=== PATIENT | male | born 1970 | race Caucasian/White ===

== ENCOUNTER 2021-08-06 16:34 | Inpatient (IN) | payer OTHER ==
[2021-08-06 17:31] LABS: BASOPHILS % (AUTO) 0.3 %; EOSINOPHILS # (AUTO) 0.1 10^3/uL (0.0-0.7); EOSINOPHILS % (AUTO) 0.6 %; HCT - HEMATOCRIT 47.1 % (42.0-52.0); LYMPHOCYTES # (AUTO) 0.8 10^3/uL (1.5-3.5); LYMPHOCYTES % (AUTO) 5.9 %; MEAN CORPUSCULAR VOLUME 85.5 fL (80.0-94.0); MONOCYTES # (AUTO) 0.3 10^3/uL (0.0-1.0); MONOCYTES % (AUTO) 2.4 %; NEUTROPHILS # (AUTO) 11.9 10^3/uL (1.5-6.6); NEUTROPHILS % (AUTO) 90.4 %; PLT - PLATELET COUNT 346 10^3/uL (130-450); RED BLOOD COUNT 5.51 10^6/uL (4.70-6.10); RED CELL DISTRIBUTION WIDTH 11.9 % (12.0-15.0); WHITE BLOOD COUNT 13.2 x10^3/uL (4.8-10.8)
--- NOTE | 2021-08-06 17:33 | ED Physician Documentation ---
History of Present Illness - Stated complaint Stated Complaint: INFLAMMED RECTUM - Chief complaint Chief Complaint: Abd Pain - Additonal information Additional information: 51-year-old male presents to the emergency department with acute rectal pain as well as urinary obstruction. He reports that he has a difficult time achieving orgasm and he will masturbate 1-2 times daily using dildo or a vibrator inserted rectally. He did not have lubrication yesterday and used only lotion. Since then he has been unable to defecate and has had persistent rectal pain and an inability to void. No history of similar in the past. No previous rectal surgeries. no fevers, n/v. Review of Systems Constitutional: denies: Fever, Chills Eyes: reports: Loss of vision Ears: reports: Reviewed and negative Nose: reports: Reviewed and negative Cardiac: reports: Reviewed and negative Respiratory: reports: Reviewed and negative GI: reports: Abdominal Pain. denies: Nausea, Vomiting : reports: Unable to Void, Other (rectal pain) Skin: reports: Reviewed and negative Musculoskeletal: reports: Reviewed and negative Neurologic: reports: Reviewed and negative PD PAST MEDICAL HISTORY - Past Medical History Psych: Depression - Past Surgical History Past Surgical History: Yes - Present Medications Home Medications: Ambulatory Orders Medication Instructions Recorded Confirmed No Known Home Medications 08/06/21 08/06/21 - Allergies Allergies/Adverse Reactions: Allergies Allergy/AdvReac Type Severity Reaction Status Date / Time No Known Drug Allergies Allergy Verified 08/06/21 16:46 - Social History Does the pt smoke?: No Smoking Status: Never smoker Does the pt drink ETOH?: No Does the pt have substance abuse?: No - Immunizations Immunizations are current?: No Immunizations: TDAP >10years/unknown PD ED PE NORMAL - General General: Alert and oriented X 3, Other (And significant pain) - HEENT HEENT: Atraumatic, Moist mucous membranes - Neck Neck: Supple, no meningeal sign - Cardiac Cardiac: RRR, No murmur, Strong equal pulses - Respiratory Respiratory: No respiratory distress, Clear bilaterally - Abdomen Abdomen: Normal bowel sounds, Soft. No: Non tender (Palpably distended bladder with tenderness. No flank or CVA pain. Positive guarding and rebound. c/w peritonitis) - Rectal Rectal: Other (External exam of the rectum appears intact without bleeding or discharge.). 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, No motor deficit Eye Opening: Spontaneous Motor: Obeys Commands Verbal: Oriented GCS Score: 15 Results - Vitals Vitals: Vital Signs - 24 hr 08/06/21 08/06/21 08/06/21 16:46 18:24 18:25 Temperature 37.3 C 37.3 C Heart Rate 90 85 85 Respiratory 16 18 20 Rate Blood Pressure 180/90 H 150/80 H 150/86 H O2 Saturation 96 97 100 08/06/21 20:00 Temperature 37.2 C Heart Rate 95 Respiratory 19 Rate Blood Pressure 155/86 H O2 Saturation 98 Oxygen O2 Source Room air - Labs Labs: Laboratory Tests 08/06/21 08/06/21 08/06/21 17:25 17:25 18:05 WBC 13.2 H RBC 5.51 Hgb 16.0 Hct 47.1 MCV 85.5 MCH 29.0 MCHC 34.0 RDW 11.9 L Plt Count 346 MPV 9.0 Neut # (Auto) 11.9 H Lymph # (Auto) 0.8 L [place] # (Auto) 0.3 Eos # (Auto) 0.1 Baso # (Auto) 0.0 Absolute Nucleated RBC 0.00 Nucleated RBC % 0.0 Sodium 136 Potassium 3.8 Chloride 102 Carbon Dioxide 24 Anion Gap 10.0 BUN 12 Creatinine 0.9 Estimated GFR (MDRD) 88 L Glucose 114 H Lactic Acid Calcium 8.8 Total Bilirubin 2.0 H AST 16 ALT 19 Alkaline Phosphatase 65 Total Protein 7.8 Albumin 4.4 Globulin 3.4 Albumin/Globulin Ratio 1.3 Lipase 22 Urine Color YELLOW Urine Clarity CLEAR Urine pH 6.5 Ur Specific [place] 1.020 Urine Protein NEGATIVE Urine Glucose (UA) NEGATIVE Urine Ketones TRACE Urine Occult Blood NEGATIVE Urine Nitrite NEGATIVE Urine Bilirubin NEGATIVE Urine Urobilinogen 0.2 (NORMAL) Ur Leukocyte Esterase NEGATIVE Ur Microscopic Review NOT INDICATED Urine Culture Comments NOT INDICATED Nasal Adenovirus (PCR) Nasal B. parapertussis DNA (PCR) Nasal Coronavir 229E PCR Nasal Coronavir HKU1 PCR Nasal Coronavir NL63 PCR Nasal Coronavir OC43 PCR Nasal Enterovir/Rhinovir PCR Nasal Influenza B PCR Nasal Influenza A PCR Nasal Parainfluen 1 PCR Nasal Parainfluen 2 PCR Nasal Parainfluen 3 PCR Nasal Parainfluen 4 PCR Nasal RSV (PCR) Nasal B.pertussis DNA PCR Nasal C.pneumoniae (PCR) Jed Human Metapneumo PCR Nasal M.pneumoniae (PCR) Nasal SARS-CoV-2 (PCR) 08/06/21 08/06/21 19:30 19:37 WBC RBC Hgb Hct MCV MCH MCHC RDW Plt Count MPV Neut # (Auto) Lymph # (Auto) [place] # (Auto) Eos # (Auto) Baso # (Auto) Absolute Nucleated RBC Nucleated RBC % Sodium Potassium Chloride Carbon Dioxide Anion Gap BUN Creatinine Estimated GFR (MDRD) Glucose Lactic Acid 1.3 Calcium Total Bilirubin AST ALT Alkaline Phosphatase Total Protein Albumin Globulin Albumin/Globulin Ratio Lipase Urine Color Urine Clarity Urine pH Ur Specific [place] Urine Protein Urine Glucose (UA) Urine Ketones Urine Occult Blood Urine Nitrite Urine Bilirubin Urine Urobilinogen Ur Leukocyte Esterase Ur Microscopic Review Urine Culture Comments Nasal Adenovirus (PCR) NOT DETECTED Nasal B. parapertussis DNA (PCR) NOT DETECTED Nasal Coronavir 229E PCR NOT DETECTED Nasal Coronavir HKU1 PCR NOT DETECTED Nasal Coronavir NL63 PCR NOT DETECTED Nasal Coronavir OC43 PCR NOT DETECTED Nasal Enterovir/Rhinovir PCR NOT DETECTED Nasal Influenza B PCR NOT DETECTED Nasal Influenza A PCR NOT DETECTED Nasal Parainfluen 1 PCR NOT DETECTED Nasal Parainfluen 2 PCR NOT DETECTED Nasal Parainfluen 3 PCR NOT DETECTED Nasal Parainfluen 4 PCR NOT DETECTED Nasal RSV (PCR) NOT DETECTED Nasal B.pertussis DNA PCR NOT DETECTED Nasal C.pneumoniae (PCR) NOT DETECTED Jed Human Metapneumo PCR NOT DETECTED Nasal M.pneumoniae (PCR) NOT DETECTED Nasal SARS-CoV-2 (PCR) NOT DETECTED - Rads (name of study) CT abd Radiology: Final report received (Sigmoid diverticulitis with stranding. Focal extraluminal air contiguous with a portion of the thickened sigmoid colon. Scattered areas of nonluminal free air identified within the abdomen and pelvis most consistent with a perforation.) PD MEDICAL DECISION MAKING - ED course Complexity details: reviewed results, re-evaluated patient, d/w event management consultant (Zoran) ED course: 51-year-old male presents emergency department for acute abdominal and rectal pain as well as inability to urinate. He does report a history of daily masturbation that includes rectal penetration. On initial presentation he had quite a tender abdomen with guarding and rebound but also visibly distended bladder. A Ruiz catheter was placed. On reexam he remains exquisitely tender, but mostly focal on the LLQ. Screening labs do not show any acute worrisome abnormality but a CT of the abdomen suggests sigmoid diverticulitis with perforation. 192 I have discussed the CT finding with Dr. Meehan on-call for surgery. Respiratory PCR is pending. Patient will be empirically prescribed Zosyn. Admission to the hospital and and surgical ammelioration at the direction of surgical services. Hospitalist service will consult. Plan and findings have been communicated with the patient. Departure - Departure Disposition: 66 [facility] DC/Xfer Clinical Impression: Perforation of sigmoid colon Condition: Stable Record reviewed to determine appropriate education?: Yes
[2021-08-06 17:41] LABS: ALBUMIN 4.4 g/dL (3.2-5.5); ALBUMIN/GLOBULIN RATIO 1.3 (1.0-2.2); CALCIUM 8.8 mg/dL (8.5-10.3); CREATININE 0.9 mg/dL (0.6-1.2); POTASSIUM 3.8 mmol/L (3.5-5.0); TOTAL PROTEIN 7.8 g/dL (6.7-8.2)
[2021-08-06] MEDS ORDERED: iohexoL-300 100 ML VIAL ONE (18:06)
[2021-08-06] MEDS ORDERED: SODIUM CHLORIDE 0.9% 1,000 ML IV STA (18:11)
[2021-08-06] MEDS ORDERED: HYDROmorphone 1 MG/ML CARPUJECT IVP STA ×2 (18:11→20:02)
[2021-08-06 18:47] LABS: BILIRUBIN,URINE NEGATIVE (NEGATIVE); GLUCOSE, URINE (UA) NEGATIVE (NEGATIVE); KETONES,URINE (UA) TRACE mg/dL (NEGATIVE); LEUKOCYTE ESTERASE, URINE NEGATIVE (NEGATIVE); NITRITE,URINE NEGATIVE (NEGATIVE); OCCULT BLOOD,URINE NEGATIVE (NEGATIVE); PH,URINE 6.5 PH (5.0-7.5); PROTEIN,URINE NEGATIVE (NEGATIVE); UROBILINOGEN,URINE 0.2 (NORMAL) E.U./dL (NORMAL)
[2021-08-06 18:50] LABS: CLARITY,URINE CLEAR (CLEAR)
[2021-08-06] MEDS ORDERED: PIPERACILLIN/TAZOBACTAM 3.375 GM in SODIUM CHLORIDE 0.9% MINIBAG 100 ML IV STA (19:17)
--- NOTE | 2021-08-06 19:18 | CT Report ---
PROCEDURE: Abdomen/Pelvis W INDICATIONS: rectal pain/urinary obstruciton after rectal stim CONTRAST: IV CONTRAST: Isovue 300 ml: 100 PO CONTRAST: *NO PO CONTRAST TECHNIQUE: After the administration of intravenous contrast, 5 mm thick sections acquired from the diaphragms to the symphysis. 5 mm thick coronal and sagittal reformats were acquired. For radiation dose reducti on, the following was used: automated exposure control, adjustment of mA and/or kV according to binta ent size. COMPARISON: CT chest 08/02/2012 report only. FINDINGS: Image quality: Excellent. ABDOMEN: Lung bases: 3 mm fissural right nodule series 4 image 541. This was not noted in prior report of 2012 . Images are not available for direct comparison. Scarring versus atelectasis is noted within the lilia gula. Heart size is normal. Solid organs: Liver and spleen are normal in size and enhancement. Gallbladder is unremarkable Doug iary system is non dilated. Pancreas enhances normally. No adrenal nodules. Kidneys demonstrate no rmal size and enhancement, without hydronephrosis. Peritoneum and bowel: Bowel loops are nonobstructed. There is a mild thickened appearance of the sig moid colon with pericolonic stranding. Adjacent areas of air appearing extraluminal are noted. Divert icula are present. In addition, nondependent air is also present within the abdomen. Scattered areas of mild fluid are present. Nodes and vessels: No retroperitoneal or mesenteric adenopathy by size criteria. Aorta and inferior vena cava are normal in size. Miscellaneous: No ventral hernias. PELVIS: Genitourinary: Bladder is collapsed with a Ruiz catheter. Miscellaneous: Bilateral fat-containing inguinal hernias are present. Bones: No suspicious bony lesions. No vertebral body compression fractures. IMPRESSION: 1. Thickened appearance of the sigmoid colon with diverticula and areas of stranding most suggestive of slight colitis secondary to diverticulitis. There is focal area of extraluminal air contiguous wit h the portion of thickened sigmoid colon. In addition, scattered areas of nonluminal free air are nida ntified within the abdomen and pelvis most consistent with perforation. 2. 3 mm fissural nodule as above, nonspecific and appearing new. Recommend interval follow-up as below. The above findings were discussed with Joanna Barrera on 08/06/2021 at 7:14 PM. Fleischner Society criteria for SOLID lung nodule followup. Nodule size (mm) *<6 *Low-risk patient: No follow-up needed *High-risk patient: Optional CT at 12 months; if no change, no further follow-up *6-8 *Low-risk patient: Initial follow-up CT at 6-12 months, then optional CT at 18-24 months. *High-risk patient: Initial follow-up CT at CT at 6-[address] 18-24 months. *>8 single nodule *Low-risk patient: CT, PET or biopsy at 3 months. *High-risk patient: Same as for low-risk pts. *>8 multiple nodules *Low-risk patient: CT at 3-6 months, then optional CT at 18-24 months *High-risk patient: CT at 3-6 months, then CT at 18-24 months Reviewed by: Kate Ansari MD on 08/06/2021 7:17 PM PST Approved by: Kate Ansari MD on 08/06/2021 7:17 PM PST Station ID: [id number]
--- NOTE | 2021-08-06 20:22 | HISTORY & PHYSICAL EXAMINATION ---
Chief Complaint - Chief Complaint Chief Complaint: abdominal pain History of Present Illness - History of Present Illness HPI Comment/Other: Pt is a 51 yo M with no known PMH, no prior abdominal surgery who presents for abdominal pain. Pain started yesterday evening subsequent to masturbating with anal stimulation via a sex toy of ~8-9 in. length. Pain has gotten slightly more diffuse but mostly in LLQ. No BM or flatus since pain started. No emesis. Denies any anal bleeding. Has never had similar episodes. No fevers at home. Was retaining urine, akers catheter placed with relief. In ED pt still with abdominal pain. HR 80-90s, BP 150s systolic, afebrile. Labs notable for WBC 13; CT scan showing sigmoid thickening with pericolonic free air, as well as some ventral free air and some mild free fluid. History - Past Medical History Cardiovascular: reports: None Respiratory: reports: None Neuro: reports: None Endocrine/Autoimmune: reports: None GI: reports: None : reports: None HEENT: reports: None Psych: reports: Depression Musculoskeletal: reports: None Derm: reports: None MRSA Hx?: No Other Past Medical History: Denies any known PMH; doesnt take any meds at home. 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) HEENT: reports: Tonsil/Adenoidectomy - Substance History Use: Uses substance without health or social issues: NONE (Denies EtOH, drug, or tobacco use; never any IVDU) Meds/Allgy - Home Medications Home Medications: Ambulatory Orders Medication Instructions Recorded Confirmed No Known Home Medications 08/06/21 08/06/21 - Allergies Allergies/Adverse Reactions: Allergies Allergy/AdvReac Type Severity Reaction Status Date / Time No Known Drug Allergies Allergy Verified 08/06/21 16:46 Review of Systems - Constitutional Constitutional: denies: Fever - Cardiovascular Cariovascular: denies: Chest pain - Respiratory Respiratory: denies: Cough, SOB at rest - Gastrointestinal Gastrointestinal: reports: Abdominal pain, Constipation, Nausea - Genitourinary Genitourinary: reports: Dysuria Exam - Vital Signs Reviewed Vital Signs: Yes Vital Signs: Vital Signs x48h Temp Pulse Resp BP Pulse Ox 08/06/21 20:00 37.2 C 95 19 155/86 H 98 08/06/21 18:25 85 20 150/86 H 100 01/11/22 18:24 37.3 C 85 18 150/80 H 97 08/06/21 16:46 37.3 C 90 16 180/90 H 96 - Physical Exam General Appearance: positive: No acute distress, Alert Eyes Bilateral: positive: EOMI Respiratory: positive: No respiratory distress Cardiovascular: positive: Regular rate & rhythm Abdomen: positive: Other (soft, obese, mildly distended, moderate TTP in LLQ with focal peritonitis; rest of abdomen non-tender with only referred pain to LLQ; no rebound or guarding in rest of abdomen) Rectal: positive: Non-tender, Other (normal external exam; no blood on glove; no masses or other abnormalities detected) Skin: positive: No rash, Warm, Dry. negative: Diaphoresis Neurologic/Psychiatric: positive: Oriented x3, Mood/affect nml Comments/Other: Akesr catheter in place draining clear yellow urine Sepsis Event Note (H) - Sepsis Criteria Sepsis Criteria: WBC count greater than 12,000 or less than 4000 Conclusion/Plan - Lab Results Fish Bones: 08/06/21 17:25 08/06/21 17:25 - Other Other Results/Comments: Pt is a 51 yo M with no significant known PMH or PSH who presents with perf orated sigmoid diverticulitis (given location does not seem to be self-inflicted perforation). Clinically stable vitals, exam with focal TTP in LLQ but not diffuse peritonitis. WBC 13, with sigmoid thickening as well as mild free fluid and some free air both locally and anteriorly. Given non-toxic vitals, reassuring labs and only focal TTP on exam, will attempt trial of non-op mgmt. Discussed with pt that failure of non-op mgmt (including worsening pain, septic picture developing, or failure to progress) would likely result in Freddie's procedure and that abscess development could also necessitate further procedures. - Admit to gen surg with Medicine Consult - IV pain meds - strict NPO/IVF - prn zofran - Zosyn (received first dose in ED) - serial exams; Q4 hr vitals - continue akers catheter for now - if there is ANY clinical decompensation of the patient, please do not hesitate to call Given the complexity of this patient, they were discussed with senior attending Dr. Good who will assume care of the patient tomorrow. Lio Meehan MD General Surgery
[2021-08-06] MEDS ORDERED: MORPHINE 2 MG/ML CARPUJECT IVP PRN (20:37)
[2021-08-06 20:46] LABS: B. PARAPERTUSSIS- RESP PCR PAN NOT DETECTED; B. PERTUSSIS- RESP PCR PANEL NOT DETECTED; C. PNEUMONIAE- RESP PCR PANEL NOT DETECTED; CORONAVIRUS 229E-RESP PCR NOT DETECTED; CORONAVIRUS HKU1-RESP PCR NOT DETECTED; CORONAVIRUS NL63-RESP PCR NOT DETECTED; CORONAVIRUS OC43-RESP PCR NOT DETECTED; HUMAN METAPNEUMOVIRUS NOT DETECTED; INFLUENZA A- RESP PCR PANEL NOT DETECTED; INFLUENZA B - RESP PCR PANEL NOT DETECTED; M. PNEUMONIAE- RESP PCR PANEL NOT DETECTED; PARAINFLUENZA VIRUS 1 NOT DETECTED; PARAINFLUENZA VIRUS 2 NOT DETECTED; PARAINFLUENZA VIRUS 3 NOT DETECTED; PARAINFLUENZA VIRUS 4 NOT DETECTED; RHINOVIRUS/ENTEROVIRUS NOT DETECTED; RSV- RESP PCR PANEL NOT DETECTED; SARS-CoV-2 -RESP PCR PANEL NOT DETECTED
[2021-08-06] MEDS ORDERED: iohexoL-300 100 ML VIAL IVP ONE (21:29)
[2021-08-06] MEDS: ACETAMINOPHEN 1,000 MG/100 ML 100 ML IV SCH (21:43)
[2021-08-06] MEDS: SODIUM CHLORIDE FLUSH 0.9% 10 ML SYRINGE IVP PRN (21:51)
[2021-08-06] MEDS: HEPARIN 5,000 UNIT/ML VIAL SUBQ SCH (21:53)
[2021-08-06] MEDS: LACTATED RINGERS 1,000 ML IV SCH (22:01)
[2021-08-06] MEDS: HYDROcod/ACETAM 5/325 MG TABLET PO PRN (22:52)
--- NOTE | 2021-08-06 22:55 | CONSULTATION NOTE ---
Referring Provider Name of Referring Provider:: Dr Meehan (Gen Surg) Consult Date: 08/06/21 Chief Complaint - Chief Complaint Chief Complaint: Abd pain History of Present Illness - Admitted From Admitted From:: ED - History Obtained From History obtained from: ED provider and the patient - History of Present Illness HPI Comment/Other: This is a 51-year-old white male with a prior history of morbid obesity and then he had hypertension and sleep apnea requiring CPAP. He then lost 50 pounds with increased activity and a diet and is on no medicines for hypertension and no longer needs his CPAP. This patient suffers from erectile dysfunction and masturbates frequently (reported daily, to the ED provider), using a sexual device inserted into his rectum. After 1 of these episodes today, he started to having anterior, lower abdominal pain that was so severe he was "panting like a dog" and inability to urinate. There was no rectal pain or bleeding. Because of these ongoing symptoms he presented to the ED. Work-up in the ED showed a distended urinary bladder and he received a Ruiz. He continued to have abdominal pain with guarding and rebound and further work-up showed an elevated white count of 13, normal Lactic Acid level, and CT of the abdomen/pelvis showed diverticuli with stranding consistent with diverticulitis, and also free air consistent with a sigmoid perforation. He was seen by the General Surgeon and admitted and the Hospitalist Team is asked to be on consult. The patient denies any current medical history, and does not take any daily medications. He did not know he has diverticulosis, has never had a colonoscopy and he has never had these types of symptoms before. We discussed his CODE BLUE wishes and he would like to be a Full Code. History - Past Medical History Cardiovascular: reports: None Respiratory: reports: None, Sleep apnea (requiring CPAP, but not since losing 50 lbs 3 yeras ago.) Neuro: reports: None Endocrine/Autoimmune: reports: None GI: reports: None : reports: None, Other (? erectile dysfunction) HEENT: reports: None Psych: reports: Depression (improved and on no meds since re- 7 years ago.) Musculoskeletal: reports: None Derm: reports: None MRSA Hx?: No Other Past Medical History: Denies any known PMH; doesnt take any meds at home. 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 (His has been in [place] helping her father for the last 1 year. The patient currently lives alone, has a dog.) Social History Notes: The patient never smoked cigarettes, drinks no alcohol, has no history of drug use. He is estranged from his 2 adult children, ever since the divorce from his first . He has a full-time job at [employer], walks a lot with this. His second is currently away, over the past 1 year, helping her father in [place], thus he is alone in the house with his dog. - Substance History Use: Uses substance without health or social issues: NONE (Denies EtOH, drug, or tobacco use; never any IVDU) - POLST Patient has POLST: No Meds/Allgy - Home Medications Home Medications: Ambulatory Orders Medication Instructions Recorded Confirmed No Known Home Medications 08/06/21 08/06/21 - Allergies Allergies/Adverse Reactions: Allergies Allergy/AdvReac Type Severity Reaction Status Date / Time No Known Drug Allergies Allergy Verified 08/06/21 16:46 Review of Systems - Gastrointestinal Gastrointestinal: reports: Abdominal pain - Genitourinary Genitourinary: reports: Sexual dysfunction (?ED, masturbates daily and uses/ inserts dildos for rectal stimulation.), Other (Urinary bladder obstruction for the past 1 day, relieved when Ruiz inserted in ED.) - All Other Systems All Other Systems: reports: Reviewed and negative Exam - Vital Signs Vital Signs: Vital Signs x48h Temp Pulse Pulse Resp BP BP Pulse Ox 08/06/21 22:41 37.7 C 08/06/21 21:38 38.7 C H 98 20 152/83 H 98 08/06/21 20:00 37.2 C 95 19 155/86 H 98 08/06/21 18:25 85 20 150/86 H 100 08/06/21 18:24 37.3 C 85 18 150/80 H 97 08/06/21 16:46 37.3 C 90 16 180/90 H 96 - Physical Exam General Appearance: positive: No acute distress, Alert Eyes Bilateral: positive: Normal inspection, EOMI ENT: positive: ENT inspection nml, Dry mucous membranes Neck: positive: Nml inspection, No JVD Respiratory: positive: No respiratory distress, Breath sounds nml Cardiovascular: positive: Regular rate & rhythm, No murmur Abdomen: positive: Tenderness, Guarding, Rebound, Other (Mildly distended, absent bowel sounds) Skin: positive: Warm, Dry Extremities: positive: Non-tender, No pedal edema Neurologic/Psychiatric: positive: Oriented x3, CN's nml (2-12), Motor nml Conclusion/Plan - Problem List (1) Perforation of sigmoid colon Conclusion/Plan: Continue with IV narcotics for pain control, n.p.o. and assess his WBC and lacti c acid level tomorrow Further management with npo diet and/or surgical intervention will be as per g eneral surgery. (2) Pre-op evaluation Conclusion/Plan: The patient has no history of cardiac disease, diabetes, chest pain or CHF. His revised cardiac risk index for pre-operative risk is 1, (Class II risk), giving him a 6% 30-day risk of , [place] or cardiac arrest. We will follow along with you. Thank you for allowing us to participate in the care of this patient (3) Diverticulitis Conclusion/Plan: Continue with empiric IV antibiotics. Further management with npo diet and/or surgical intervention will be as per general surgery. (4) Acute urinary retention Conclusion/Plan: A Ruiz catheter was required to relieve his urinary retention which is was caused by bladder obstruction. Continue with Ruiz care, follow I's and O's (5) Bladder obstruction Conclusion/Plan: This is probably related to swelling and inflammation from his diverticulitis. - Lab Results Fish Bones: 08/06/21 17:25 08/06/21 17:25 - Diagnostic Imaging Results Diagnostic Imaging Results: positive: Final report reviewed - Other Other Results/Comments: Attestation: The patient is expected to be discharged or transferred to another facility within 96 hours: Yes.
[2021-08-06] MEDS: PIPERACILLIN/TAZOBACTAM 3.375 GM in SODIUM CHLORIDE 0.9% MINIBAG 100 ML IV SCH (23:54)
[2021-08-06] MEDS: diphenhydrAMINE INJ 50 MG/ML VIAL IVP PRN (23:55)
[2021-08-07] MEDS: SODIUM CHLORIDE FLUSH 0.9% 10 ML SYRINGE IVP SCH ×4 (00:02→23:46)
[2021-08-07] MEDS: HYDROmorphone 2 MG/ML VIAL IVP PRN ×4 (02:24→22:58)
[2021-08-07] MEDS: PIPERACILLIN/TAZOBACTAM 3.375 GM in SODIUM CHLORIDE 0.9% MINIBAG 100 ML IV SCH ×4 (05:46→23:45)
[2021-08-07] MEDS: HEPARIN 5,000 UNIT/ML VIAL SUBQ SCH ×3 (05:53→21:35)
[2021-08-07 06:31] LABS: BASOPHILS # (AUTO) 0.1 10^3/uL (0.0-0.1); BASOPHILS % (AUTO) 0.4 %; EOSINOPHILS # (AUTO) 0.1 10^3/uL (0.0-0.7); EOSINOPHILS % (AUTO) 0.4 %; HCT - HEMATOCRIT 43.5 % (42.0-52.0); HGB - HEMOGLOBIN 14.4 g/dL (14.0-18.0); LYMPHOCYTES # (AUTO) 0.6 10^3/uL (1.5-3.5); LYMPHOCYTES % (AUTO) 3.5 %; MEAN CORPUSCULAR HEMOGLOBIN 29.1 pg (27.0-31.0); MEAN CORPUSCULAR HGB CONC 33.1 g/dL (32.0-36.0); MEAN CORPUSCULAR VOLUME 87.9 fL (80.0-94.0); MONOCYTES # (AUTO) 0.8 10^3/uL (0.0-1.0); MONOCYTES % (AUTO) 4.7 %; NEUTROPHILS # (AUTO) 14.9 10^3/uL (1.5-6.6); NEUTROPHILS % (AUTO) 90.5 %; PLT - PLATELET COUNT 278 10^3/uL (130-450); RED BLOOD COUNT 4.95 10^6/uL (4.70-6.10); RED CELL DISTRIBUTION WIDTH 12.3 % (12.0-15.0); WHITE BLOOD COUNT 16.5 x10^3/uL (4.8-10.8)
[2021-08-07 06:40] LABS: CALCIUM 7.9 mg/dL (8.5-10.3); CREATININE 0.9 mg/dL (0.6-1.2); MAGNESIUM 1.8 mg/dL (1.7-2.8); POTASSIUM 4.2 mmol/L (3.5-5.0)
--- NOTE | 2021-08-07 07:22 | PROVIDER PROGRESS NOTE ---
Subjective - General Admit Date: 08/06/21 - Review of Systems All Other Systems: positive: Reviewed and negative - Other Other Information/Narrative: NAEO. Fever yesterday late evening, since defervesced on abx. Pain significantly improved; "slept like a baby last night." Now mostly thirsty. Objective - Patient Data Reviewed Vital Signs: Yes Vital Signs: Vital Signs x48h Temp Pulse Resp BP Pulse Ox 08/07/21 05:30 37.1 C 86 16 110/63 96 08/06/21 23:59 37.6 C 91 16 121/71 95 Weight: Weight 08/05/21 08/06/21 08/07/21 23:59 23:59 23:59 Weight (kg) 99.79 kg Intake & Output: Intake and Output Totals x24h 08/05/21 08/06/21 08/07/21 23:59 23:59 23:59 Intake Total 1200 1114.583 Output Total 975 300 Balance 225 814.583 - Lab Results Lab Results: 08/07/21 06:18 08/07/21 06:18 Other Lab Results: Lab Results x24hrs 08/07/21 08/07/21 08/07/21 Range/Units 06:18 06:18 06:18 WBC 16.5 H (4.8-10.8) x10^3/uL RBC 4.95 (4.70-6.10) 10^6/uL Hgb 14.4 (14.0-18.0) g/dL Hct 43.5 (42.0-52.0) % MCV 87.9 (80.0-94.0) fL MCH 29.1 (27.0-31.0) pg MCHC 33.1 (32.0-36.0) g/dL RDW 12.3 (12.0-15.0) % Plt Count 278 (130-450) 10^3/uL MPV 9.0 (7.4-11.4) fL Neut # (Auto) 14.9 H (1.5-6.6) 10^3/uL Lymph # (Auto) 0.6 L (1.5-3.5) 10^3/uL [place] # (Auto) 0.8 (0.0-1.0) 10^3/uL Eos # (Auto) 0.1 (0.0-0.7) 10^3/uL Baso # (Auto) 0.1 (0.0-0.1) 10^3/uL Absolute Nucleated RBC 0.00 x10^3/uL Nucleated RBC % 0.0 /100WBC Sodium 137 (135-145) mmol/L Potassium 4.2 (3.5-5.0) mmol/L Chloride 103 (101-111) mmol/L Carbon Dioxide 25 (21-32) mmol/L Anion Gap 9.0 (6-13) BUN 13 (6-20) mg/dL Creatinine 0.9 (0.6-1.2) mg/dL Estimated GFR (MDRD) 88 L (>89) Glucose 124 H (70-100) mg/dL Lactic Acid 1.4 (0.5-2.2) mmol/L Calcium 7.9 L (8.5-10.3) mg/dL Magnesium 1.8 (1.7-2.8) mg/dL Total Bilirubin (0.2-1.0) mg/dL AST (10-42) IU/L ALT (10-60) IU/L Alkaline Phosphatase (42-121) IU/L Total Protein (6.7-8.2) g/dL Albumin (3.2-5.5) g/dL Globulin (2.1-4.2) g/dL Albumin/Globulin Ratio (1.0-2.2) Lipase (22-51) U/L Urine Color Urine Clarity (CLEAR) Urine pH (5.0-7.5) PH Ur Specific [place] (1.002-1.030) Urine Protein (NEGATIVE) mg/dL Urine Glucose (UA) (NEGATIVE) mg/dL Urine Ketones (NEGATIVE) mg/dL Urine Occult Blood (NEGATIVE) Urine Nitrite (NEGATIVE) Urine Bilirubin (NEGATIVE) Urine Urobilinogen (NORMAL) E.U./dL Ur Leukocyte Esterase (NEGATIVE) Ur Microscopic Review Urine Culture Comments Nasal Adenovirus (PCR) Nasal B. parapertussis DNA (PCR) Nasal Coronavir 229E PCR Nasal Coronavir HKU1 PCR Nasal Coronavir NL63 PCR Nasal Coronavir OC43 PCR Nasal Enterovir/Rhinovir PCR Nasal Influenza B PCR Nasal Influenza A PCR Nasal Parainfluen 1 PCR Nasal Parainfluen 2 PCR Nasal Parainfluen 3 PCR Nasal Parainfluen 4 PCR Nasal RSV (PCR) Nasal B.pertussis DNA PCR Nasal C.pneumoniae (PCR) Jed Human Metapneumo PCR Nasal M.pneumoniae (PCR) Nasal SARS-CoV-2 (PCR) 08/06/21 08/06/21 08/06/21 Range/Units 19:37 19:30 18:05 WBC (4.8-10.8) x10^3/uL RBC (4.70-6.10) 10^6/uL Hgb (14.0-18.0) g/dL Hct (42.0-52.0) % MCV (80.0-94.0) fL MCH (27.0-31.0) pg MCHC (32.0-36.0) g/dL RDW (12.0-15.0) % Plt Count (130-450) 10^3/uL MPV (7.4-11.4) fL Neut # (Auto) (1.5-6.6) 10^3/uL Lymph # (Auto) (1.5-3.5) 10^3/uL [place] # (Auto) (0.0-1.0) 10^3/uL Eos # (Auto) (0.0-0.7) 10^3/uL Baso # (Auto) (0.0-0.1) 10^3/uL Absolute Nucleated RBC x10^3/uL Nucleated RBC % /100WBC Sodium (135-145) mmol/L Potassium (3.5-5.0) mmol/L Chloride (101-111) mmol/L Carbon Dioxide (21-32) mmol/L Anion Gap (6-13) BUN (6-20) mg/dL Creatinine (0.6-1.2) mg/dL Estimated GFR (MDRD) (>89) Glucose (70-100) mg/dL Lactic Acid 1.3 (0.5-2.2) mmol/L Calcium (8.5-10.3) mg/dL Magnesium (1.7-2.8) mg/dL Total Bilirubin (0.2-1.0) mg/dL AST (10-42) IU/L ALT (10-60) IU/L Alkaline Phosphatase (42-121) IU/L Total Protein (6.7-8.2) g/dL Albumin (3.2-5.5) g/dL Globulin (2.1-4.2) g/dL Albumin/Globulin Ratio (1.0-2.2) Lipase (22-51) U/L Urine Color YELLOW Urine Clarity CLEAR (CLEAR) Urine pH 6.5 (5.0-7.5) PH Ur Specific [place] 1.020 (1.002-1.030) Urine Protein NEGATIVE (NEGATIVE) mg/dL Urine Glucose (UA) NEGATIVE (NEGATIVE) mg/dL Urine Ketones TRACE (NEGATIVE) mg/dL Urine Occult Blood NEGATIVE (NEGATIVE) Urine Nitrite NEGATIVE (NEGATIVE) Urine Bilirubin NEGATIVE (NEGATIVE) Urine Urobilinogen 0.2 (NORMAL) (NORMAL) E.U./dL Ur Leukocyte Esterase NEGATIVE (NEGATIVE) Ur Microscopic Review NOT INDICATED Urine Culture Comments NOT INDICATED Nasal Adenovirus (PCR) NOT DETECTED Nasal B. parapertussis DNA (PCR) NOT DETECTED Nasal Coronavir 229E PCR NOT DETECTED Nasal Coronavir HKU1 PCR NOT DETECTED Nasal Coronavir NL63 PCR NOT DETECTED Nasal Coronavir OC43 PCR NOT DETECTED Nasal Enterovir/Rhinovir PCR NOT DETECTED Nasal Influenza B PCR NOT DETECTED Nasal Influenza A PCR NOT DETECTED Nasal Parainfluen 1 PCR NOT DETECTED Nasal Parainfluen 2 PCR NOT DETECTED Nasal Parainfluen 3 PCR NOT DETECTED Nasal Parainfluen 4 PCR NOT DETECTED Nasal RSV (PCR) NOT DETECTED Nasal B.pertussis DNA PCR NOT DETECTED Nasal C.pneumoniae (PCR) NOT DETECTED [place] Human Metapneumo PCR NOT DETECTED Nasal M.pneumoniae (PCR) NOT DETECTED Nasal SARS-CoV-2 (PCR) NOT DETECTED 08/06/21 08/06/21 Range/Units 17:25 17:25 WBC 13.2 H (4.8-10.8) x10^3/uL RBC 5.51 (4.70-6.10) 10^6/uL Hgb 16.0 (14.0-18.0) g/dL Hct 47.1 (42.0-52.0) % MCV 85.5 (80.0-94.0) fL MCH 29.0 (27.0-31.0) pg MCHC 34.0 (32.0-36.0) g/dL RDW 11.9 L (12.0-15.0) % Plt Count 346 (130-450) 10^3/uL MPV 9.0 (7.4-11.4) fL Neut # (Auto) 11.9 H (1.5-6.6) 10^3/uL Lymph # (Auto) 0.8 L (1.5-3.5) 10^3/uL [place] # (Auto) 0.3 (0.0-1.0) 10^3/uL Eos # (Auto) 0.1 (0.0-0.7) 10^3/uL Baso # (Auto) 0.0 (0.0-0.1) 10^3/uL Absolute Nucleated RBC 0.00 x10^3/uL Nucleated RBC % 0.0 /100WBC Sodium 136 (135-145) mmol/L Potassium 3.8 (3.5-5.0) mmol/L Chloride 102 (101-111) mmol/L Carbon Dioxide 24 (21-32) mmol/L Anion Gap 10.0 (6-13) BUN 12 (6-20) mg/dL Creatinine 0.9 (0.6-1.2) mg/dL Estimated GFR (MDRD) 88 L (>89) Glucose 114 H (70-100) mg/dL Lactic Acid (0.5-2.2) mmol/L Calcium 8.8 (8.5-10.3) mg/dL Magnesium (1.7-2.8) mg/dL Total Bilirubin 2.0 H (0.2-1.0) mg/dL AST 16 (10-42) IU/L ALT 19 (10-60) IU/L Alkaline Phosphatase 65 (42-121) IU/L Total Protein 7.8 (6.7-8.2) g/dL Albumin 4.4 (3.2-5.5) g/dL Globulin 3.4 (2.1-4.2) g/dL Albumin/Globulin Ratio 1.3 (1.0-2.2) Lipase 22 (22-51) U/L Urine Color Urine Clarity (CLEAR) Urine pH (5.0-7.5) PH Ur Specific [place] (1.002-1.030) Urine Protein (NEGATIVE) mg/dL Urine Glucose (UA) (NEGATIVE) mg/dL Urine Ketones (NEGATIVE) mg/dL Urine Occult Blood (NEGATIVE) Urine Nitrite (NEGATIVE) Urine Bilirubin (NEGATIVE) Urine Urobilinogen (NORMAL) E.U./dL Ur Leukocyte Esterase (NEGATIVE) Ur Microscopic Review Urine Culture Comments Nasal Adenovirus (PCR) Nasal B. parapertussis DNA (PCR) Nasal Coronavir 229E PCR Nasal Coronavir HKU1 PCR Nasal Coronavir NL63 PCR Nasal Coronavir OC43 PCR Nasal Enterovir/Rhinovir PCR Nasal Influenza B PCR Nasal Influenza A PCR Nasal Parainfluen 1 PCR Nasal Parainfluen 2 PCR Nasal Parainfluen 3 PCR Nasal Parainfluen 4 PCR Nasal RSV (PCR) Nasal B.pertussis DNA PCR Nasal C.pneumoniae (PCR) Jed Human Metapneumo PCR Nasal M.pneumoniae (PCR) Nasal SARS-CoV-2 (PCR) - Current Medications Current Medications: Current Medications Generic Name Dose Route Start Last Admin Trade Name Freq PRN Reason Stop Dose Admin Hydrocodone Bitart/Acetaminophen 1 tab 08/06/21 20:37 08/06/21 22:52 Hydrocod/Acetam 5/325 Mg Tablet PO 1 tab Q4HR PRN Administration Pain 5 to 7 Diphenhydramine HCl 25 mg 08/06/21 22:44 08/06/21 23:55 Diphenhydramine Inj 50 Mg/Ml Vial IVP 25 mg QPM PRN Administration Insomnia Heparin Sodium (Porcine) 5,000 unit 08/06/21 22:00 08/07/21 05:53 Heparin 5,000 Unit/Ml Vial SUBQ 5,000 unit TID BLAS Administration Hydromorphone HCl 2 mg 08/06/21 22:46 08/07/21 06:46 Hydromorphone 2 Mg/Ml Vial IVP 2 mg Q2H PRN Administration PAIN Lactated Ringer's 1,000 mls @ 125 mls/hr 08/06/21 21:00 08/07/21 06:45 Lr IV 125 mls/hr .Q8H BLAS Infusion Piperacillin Sod/Tazobactam 100 mls @ 200 mls/hr 08/07/21 00:00 08/07/21 06:46 Sod 3.375 gm/ Sodium Chloride IV Infused Q6HR BLAS Infusion Acetaminophen 100 mls @ 400 mls/hr 08/06/21 21:00 08/06/21 22:04 Ofirmev IV Infused BID BLAS Infusion Sodium Chloride 10 ml 08/06/21 20:37 08/06/21 21:51 Sodium Chloride Flush 0.9% 10 Ml Syringe IVP 10 ml PRN PRN Administration NEEDED PER PROVIDER ORDERS Sodium Chloride 10 ml 08/07/21 01:00 08/07/21 00:02 Sodium Chloride Flush 0.9% 10 Ml Syringe IVP 10 ml 0100,0900,1700 BLAS Administration - Physical Exam General Appearance: positive: No acute distress, Alert Eyes Bilateral: positive: EOMI Respiratory: positive: No respiratory distress Cardiovascular: positive: Regular rate & rhythm Abdomen: positive: Other (obese, soft, mildly distended, moderate TTP in LLQ, rest of abdomen soft and non-tender) Skin: positive: Warm, Dry Extremities: positive: No pedal edema ABX Reporting Has patient been on IV antibiotics over the past 48 hours?: Yes Impression/Plan - Problem List Problem List: 51 yo M who presents with perforated diverticulitis. Trialing non-op mgmt with bowel rest and IV abx. Clinically improved, less pain than prior; currently afebrile, HR 80s, BP wnl now that pain controlled. WBC did bump to 16 from 13; otherwise labs ok. - continue NPO/IVF - continue zosyn - continue IV pain meds - leave akers in for now; making good urine - HSQ/SCDs - serial exams - appreciate Medicine consultation Lio Meehan MD General Surgery
[2021-08-07] MEDS: LACTATED RINGERS 1,000 ML IV SCH ×3 (07:30→22:57)
--- NOTE | 2021-08-07 08:04 | PROVIDER PROGRESS NOTE ---
Assessment/Plan - Problem List (1) Perforation of sigmoid colon Assessment/Plan: WBC increased from 13.2 to 16.5. Patient currently n.p.o. On Zosyn. Pain management with [place] and oral Dilaudid as needed. General surgery primary. Will await their input regarding plan of treatment. (2) Diverticulitis Assessment/Plan: WBC increased from 13.2 to 16.5. Patient currently n.p.o. On Zosyn. Pain management with [place] and oral Dilaudid as needed. General surgery primary. Will await their input regarding plan of treatment. (3) Acute urinary retention Assessment/Plan: Likely secondary to inflammation from diverticulitis. Ruiz catheter in place (4) Bladder obstruction Assessment/Plan: Likely secondary to inflammation from diverticulitis. Ruiz catheter in place - Current Meds Current Meds: Current Medications Generic Name Dose Route Start Last Admin Trade Name Freq PRN Reason Stop Dose Admin Hydrocodone Bitart/Acetaminophen 1 tab 08/06/21 20:37 08/06/21 22:52 Hydrocod/Acetam 5/325 Mg Tablet PO 1 tab Q4HR PRN Administration Pain 5 to 7 Diphenhydramine HCl 25 mg 08/06/21 22:44 08/06/21 23:55 Diphenhydramine Inj 50 Mg/Ml Vial IVP 25 mg QPM PRN Administration Insomnia Heparin Sodium (Porcine) 5,000 unit 08/06/21 22:00 08/07/21 05:53 Heparin 5,000 Unit/Ml Vial SUBQ 5,000 unit TID BLAS Administration Hydromorphone HCl 2 mg 08/06/21 22:46 08/07/21 06:46 Hydromorphone 2 Mg/Ml Vial IVP 2 mg Q2H PRN Administration PAIN Lactated [place] 1,000 mls @ 125 mls/hr 08/06/21 21:00 08/07/21 06:45 Lr IV 125 mls/hr .Q8H BLAS Infusion Piperacillin Sod/Tazobactam 100 mls @ 200 mls/hr 08/07/21 00:00 08/07/21 06:46 Sod 3.375 gm/ Sodium Chloride IV Infused Q6HR BLAS Infusion Acetaminophen 100 mls @ 400 mls/hr 08/06/21 21:00 08/06/21 22:04 Ofirmev IV Infused BID BLAS Infusion Sodium Chloride 10 ml 08/06/21 20:37 08/06/21 21:51 Sodium Chloride Flush 0.9% 10 Ml Syringe IVP 10 ml PRN PRN Administration NEEDED PER PROVIDER ORDERS Sodium Chloride 10 ml 08/07/21 01:00 08/07/21 00:02 Sodium Chloride Flush 0.9% 10 Ml Syringe IVP 10 ml 0100,0900,1700 BLAS Administration - Lab Result Fish Bone Diagrams: 08/07/21 06:18 08/07/21 06:18 Subjective - Subjective Patient Reports: Other (Resting in bed. Reports 6 out of 10 pain. Abdominal pain worse with palpation. Also reports feeling thirsty.) Objective Vital Signs: Vital Signs - 24 hr 08/06/21 08/06/21 08/06/21 16:46 18:24 18:25 Temperature 37.3 C 37.3 C Heart Rate 90 85 85 Heart Rate [ Brachial] Respiratory 16 18 20 Rate Blood Pressure 180/90 H 150/80 H 150/86 H Blood Pressure [Left Brachial artery] O2 Saturation 96 97 100 08/06/21 08/06/21 08/06/21 20:00 21:38 22:41 Temperature 37.2 C 38.7 C H 37.7 C Heart Rate 95 Heart Rate [ 98 Brachial] Respiratory 19 20 Rate Blood Pressure 155/86 H Blood Pressure 152/83 H [Left Brachial artery] O2 Saturation 98 98 08/06/21 08/07/21 23:59 05:30 Temperature 37.6 C 37.1 C Heart Rate Heart Rate [ 91 86 Brachial] Respiratory 16 16 Rate Blood Pressure Blood Pressure 121/71 110/63 [Left Brachial artery] O2 Saturation 95 96 Oxygen O2 Source Room air I&O (Last 24 Hrs): Intake and Output Totals x24h 08/05/21 08/06/21 08/07/21 23:59 23:59 23:59 Intake Total 1200 1114.583 Output Total 975 300 Balance 225 814.583 General: Alert, Oriented x3, Mild distress, Moderate distress HEENT: PERRLA, EOMI Neck: Supple, No JVD Neuro: Alert, Oriented Times 3 Cardiovascular: Regular rate Respiratory: Chest non-tender, No respiratory distress, Breath sounds nml Abdomen: Soft, Other (tender to palpation on all quadrants) Extremities: No clubbing, No cyanosis, No edema, No tenderness/swelling Skin: No rashes, No breakdown - Results Results: Laboratory Results WBC 16.5 x10^3/uL (4.8-10.8) H 08/07/21 06:18 RBC 4.95 10^6/uL (4.70-6.10) 08/07/21 06:18 Hgb 14.4 g/dL (14.0-18.0) 08/07/21 06:18 Hct 43.5 % (42.0-52.0) 08/07/21 06:18 MCV 87.9 fL (80.0-94.0) 08/07/21 06:18 MCH 29.1 pg (27.0-31.0) 08/07/21 06:18 MCHC 33.1 g/dL (32.0-36.0) 08/07/21 06:18 RDW 12.3 % (12.0-15.0) 08/07/21 06:18 Plt Count 278 10^3/uL (130-450) 08/07/21 06:18 MPV 9.0 fL (7.4-11.4) 08/07/21 06:18 Neut # (Auto) 14.9 10^3/uL (1.5-6.6) H 08/07/21 06:18 Lymph # (Auto) 0.6 10^3/uL (1.5-3.5) L 08/07/21 06:18 [place] # (Auto) 0.8 10^3/uL (0.0-1.0) 08/07/21 06:18 Eos # (Auto) 0.1 10^3/uL (0.0-0.7) 08/07/21 06:18 Baso # (Auto) 0.1 10^3/uL (0.0-0.1) 08/07/21 06:18 Absolute Nucleated RBC 0.00 x10^3/uL 08/07/21 06:18 Nucleated RBC % 0.0 /100WBC 08/07/21 06:18 Sodium 137 mmol/L (135-145) 08/07/21 06:18 Potassium 4.2 mmol/L (3.5-5.0) 08/07/21 06:18 Chloride 103 mmol/L (101-111) 08/07/21 06:18 Carbon Dioxide 25 mmol/L (21-32) 08/07/21 06:18 Anion Gap 9.0 (6-13) 08/07/21 06:18 BUN 13 mg/dL (6-20) 08/07/21 06:18 Creatinine 0.9 mg/dL (0.6-1.2) 08/07/21 06:18 Estimated GFR (MDRD) 88 (>89) L 08/07/21 06:18 Glucose 124 mg/dL (70-100) H 08/07/21 06:18 Lactic Acid 1.4 mmol/L (0.5-2.2) 08/07/21 06:18 Calcium 7.9 mg/dL (8.5-10.3) L 08/07/21 06:18 Magnesium 1.8 mg/dL (1.7-2.8) 08/07/21 06:18 Total Bilirubin 2.0 mg/dL (0.2-1.0) H 08/06/21 17:25 AST 16 IU/L (10-42) 08/06/21 17:25 ALT 19 IU/L (10-60) 08/06/21 17:25 Alkaline Phosphatase 65 IU/L (42-121) 08/06/21 17:25 Total Protein 7.8 g/dL (6.7-8.2) 08/06/21 17:25 Albumin 4.4 g/dL (3.2-5.5) 08/06/21 17:25 Globulin 3.4 g/dL (2.1-4.2) 08/06/21 17:25 Albumin/Globulin Ratio 1.3 (1.0-2.2) 08/06/21 17:25 Lipase 22 U/L (22-51) 08/06/21 17:25 Urine Color YELLOW 08/06/21 18:05 Urine Clarity CLEAR (CLEAR) 08/06/21 18:05 Urine pH 6.5 PH (5.0-7.5) 08/06/21 18:05 Ur Specific [place] 1.020 (1.002-1.030) 08/06/21 18:05 Urine Protein NEGATIVE mg/dL (NEGATIVE) 08/06/21 18:05 Urine Glucose (UA) NEGATIVE mg/dL (NEGATIVE) 08/06/21 18:05 Urine Ketones TRACE mg/dL (NEGATIVE) 08/06/21 18:05 Urine Occult Blood NEGATIVE (NEGATIVE) 08/06/21 18:05 Urine Nitrite NEGATIVE (NEGATIVE) 08/06/21 18:05 Urine Bilirubin NEGATIVE (NEGATIVE) 08/06/21 18:05 Urine Urobilinogen 0.2 (NORMAL) E.U./dL (NORMAL) 08/06/21 18:05 Ur Leukocyte Esterase NEGATIVE (NEGATIVE) 08/06/21 18:05 Ur Microscopic Review NOT INDICATED 08/06/21 18:05 Urine Culture Comments NOT INDICATED 08/06/21 18:05 Nasal Adenovirus (PCR) NOT DETECTED 08/06/21 19:30 Nasal B. parapertussis DNA (PCR) NOT DETECTED 08/06/21 19:30 Nasal Coronavir 229E PCR NOT DETECTED 08/06/21 19:30 Nasal Coronavir HKU1 PCR NOT DETECTED 08/06/21 19:30 Nasal Coronavir NL63 PCR NOT DETECTED 08/06/21 19:30 Nasal Coronavir OC43 PCR NOT DETECTED 08/06/21 19:30 Nasal Enterovir/Rhinovir PCR NOT DETECTED 08/06/21 19:30 Nasal Influenza B PCR NOT DETECTED 08/06/21 19:30 Nasal Influenza A PCR NOT DETECTED 08/06/21 19:30 Nasal Parainfluen 1 PCR NOT DETECTED 08/06/21 19:30 Nasal Parainfluen 2 PCR NOT DETECTED 08/06/21 19:30 Nasal Parainfluen 3 PCR NOT DETECTED 08/06/21 19:30 Nasal Parainfluen 4 PCR NOT DETECTED 08/06/21 19:30 Nasal RSV (PCR) NOT DETECTED 08/06/21 19:30 Nasal B.pertussis DNA PCR NOT DETECTED 08/06/21 19:30 Nasal C.pneumoniae (PCR) NOT DETECTED 08/06/21 19:30 Jed Human Metapneumo PCR NOT DETECTED 08/06/21 19:30 Nasal M.pneumoniae (PCR) NOT DETECTED 08/06/21 19:30 Nasal SARS-CoV-2 (PCR) NOT DETECTED 08/06/21 19:30 Sepsis Event Note (H) - Sepsis Criteria Sepsis Criteria: WBC count greater than 12,000 or less than 4000 ABX Reporting Has patient been on IV antibiotics over the past 48 hours?: Yes
[2021-08-07] MEDS: ACETAMINOPHEN 1,000 MG/100 ML 100 ML IV SCH ×2 (08:25→21:31)
[2021-08-07] MEDS: HYDROcod/ACETAM 5/325 MG TABLET PO PRN (14:39)
[2021-08-08] MEDS: HYDROmorphone 2 MG/ML VIAL IVP PRN (04:43)
[2021-08-08] MEDS: HEPARIN 5,000 UNIT/ML VIAL SUBQ SCH ×3 (05:44→21:28)
[2021-08-08] MEDS: PIPERACILLIN/TAZOBACTAM 3.375 GM in SODIUM CHLORIDE 0.9% MINIBAG 100 ML IV SCH ×3 (05:47→18:19)
--- NOTE | 2021-08-08 07:12 | PROVIDER PROGRESS NOTE ---
Assessment/Plan - Problem List (1) Perforation of sigmoid colon Assessment/Plan: WBC is 13.7. Patient currently n.p.o. On Zosyn. Pain management with [place] and oral Dilaudid as needed. General surgery primary. Will await further input regarding plan of treatment. (2) Diverticulitis Assessment/Plan: WBC is 13.7. Patient currently n.p.o. On Zosyn. Pain management with [place] and oral Dilaudid as needed. General surgery primary. Will await further input regarding plan of treatment. (3) Acute urinary retention Assessment/Plan: Likely secondary to inflammation from diverticulitis. Ruiz catheter in place (4) Bladder obstruction Assessment/Plan: Likely secondary to inflammation from diverticulitis. Ruiz catheter in place - Current Meds Current Meds: Current Medications Generic Name Dose Route Start Last Admin Trade Name Freq PRN Reason Stop Dose Admin Diphenhydramine HCl 25 mg 08/06/21 22:44 08/06/21 23:55 Diphenhydramine Inj 50 Mg/Ml Vial IVP 25 mg QPM PRN Administration Insomnia Heparin Sodium (Porcine) 5,000 unit 08/06/21 22:00 08/08/21 05:44 Heparin 5,000 Unit/Ml Vial SUBQ 5,000 unit TID BLAS Administration Hydromorphone HCl 1 mg 08/07/21 20:19 08/08/21 04:43 Hydromorphone 2 Mg/Ml Vial IVP 1 mg Q2H PRN Administration PAIN Lactated Ringer's 1,000 mls @ 125 mls/hr 08/06/21 21:00 08/08/21 01:01 Lr IV 125 mls/hr .Q8H BLAS Infusion Piperacillin Sod/Tazobactam 100 mls @ 200 mls/hr 08/07/21 00:00 08/08/21 06:45 Sod 3.375 gm/ Sodium Chloride IV Infused Q6HR BLAS Infusion Acetaminophen 100 mls @ 400 mls/hr 08/06/21 21:00 08/07/21 21:46 Ofirmev IV Infused BID BLAS Infusion Sodium Chloride 10 ml 08/06/21 20:37 08/06/21 21:51 Sodium Chloride Flush 0.9% 10 Ml Syringe IVP 10 ml PRN PRN Administration NEEDED PER PROVIDER ORDERS Sodium Chloride 10 ml 08/07/21 01:00 08/07/21 23:46 Sodium Chloride Flush 0.9% 10 Ml Syringe IVP 10 ml 0100,0900,1700 [facility] Administration - Lab Result Fish Bone Diagrams: 08/08/21 06:51 08/08/21 07:28 Subjective - Subjective Patient Reports: Other (Resting in bed. No significant change in pain. Afebrile) Objective Vital Signs: Vital Signs - 24 hr 08/07/21 08/07/21 08/07/21 08:18 11:32 15:59 Temperature 37.6 C 36.5 C 37.4 C Heart Rate [ 89 78 95 Brachial] Respiratory 17 18 19 Rate Blood Pressure 111/65 115/73 129/80 [Left Brachial artery] O2 Saturation 94 95 96 08/07/21 08/07/21 08/08/21 20:20 23:15 04:34 Temperature 37.3 C 36.9 C 37.2 C Heart Rate [ 91 84 91 Brachial] Respiratory 16 18 16 Rate Blood Pressure 118/71 112/64 125/73 [Left Brachial artery] O2 Saturation 93 93 94 Oxygen O2 Source Room air I&O (Last 24 Hrs): Intake and Output Totals x24h 08/06/21 08/07/21 08/08/21 23:59 23:59 23:59 Intake Total 1200 3579.167 200 Output Total 975 1050 275 Balance 225 2529.167 -75 Comments/Notes: General: Alert, Oriented x3, Mild distress, Moderate distress HEENT: PERRLA, EOMI Neck: Supple, No JVD Neuro: Alert, Oriented Times 3 Cardiovascular: Regular rate Respiratory: Chest non-tender, No respiratory distress, Breath sounds nml Abdomen: Soft, Other (tender to palpation on all quadrants) Extremities: No clubbing, No cyanosis, No edema, No tenderness/swelling Skin: No rashes, No breakdown - Results Results: Laboratory Results WBC 16.5 x10^3/uL (4.8-10.8) H 08/07/21 06:18 RBC 4.95 10^6/uL (4.70-6.10) 08/07/21 06:18 Hgb 14.4 g/dL (14.0-18.0) 08/07/21 06:18 Hct 43.5 % (42.0-52.0) 08/07/21 06:18 MCV 87.9 fL (80.0-94.0) 08/07/21 06:18 MCH 29.1 pg (27.0-31.0) 08/07/21 06:18 MCHC 33.1 g/dL (32.0-36.0) 08/07/21 06:18 RDW 12.3 % (12.0-15.0) 08/07/21 06:18 Plt Count 278 10^3/uL (130-450) 08/07/21 06:18 MPV 9.0 fL (7.4-11.4) 08/07/21 06:18 Neut # (Auto) 14.9 10^3/uL (1.5-6.6) H 08/07/21 06:18 Lymph # (Auto) 0.6 10^3/uL (1.5-3.5) L 08/07/21 06:18 [place] # (Auto) 0.8 10^3/uL (0.0-1.0) 08/07/21 06:18 Eos # (Auto) 0.1 10^3/uL (0.0-0.7) 08/07/21 06:18 Baso # (Auto) 0.1 10^3/uL (0.0-0.1) 08/07/21 06:18 Absolute Nucleated RBC 0.00 x10^3/uL 08/07/21 06:18 Nucleated RBC % 0.0 /100WBC 08/07/21 06:18 Sodium 137 mmol/L (135-145) 08/07/21 06:18 Potassium 4.2 mmol/L (3.5-5.0) 08/07/21 06:18 Chloride 103 mmol/L (101-111) 08/07/21 06:18 Carbon Dioxide 25 mmol/L (21-32) 08/07/21 06:18 Anion Gap 9.0 (6-13) 08/07/21 06:18 BUN 13 mg/dL (6-20) 08/07/21 06:18 Creatinine 0.9 mg/dL (0.6-1.2) 08/07/21 06:18 Estimated GFR (MDRD) 88 (>89) L 08/07/21 06:18 Glucose 124 mg/dL (70-100) H 08/07/21 06:18 Lactic Acid 1.4 mmol/L (0.5-2.2) 08/07/21 06:18 Calcium 7.9 mg/dL (8.5-10.3) L 08/07/21 06:18 Magnesium 1.8 mg/dL (1.7-2.8) 08/07/21 06:18 Total Bilirubin 2.0 mg/dL (0.2-1.0) H 08/06/21 17:25 AST 16 IU/L (10-42) 08/06/21 17:25 ALT 19 IU/L (10-60) 08/06/21 17:25 Alkaline Phosphatase 65 IU/L (42-121) 08/06/21 17:25 Total Protein 7.8 g/dL (6.7-8.2) 08/06/21 17:25 Albumin 4.4 g/dL (3.2-5.5) 08/06/21 17:25 Globulin 3.4 g/dL (2.1-4.2) 08/06/21 17:25 Albumin/Globulin Ratio 1.3 (1.0-2.2) 08/06/21 17:25 Lipase 22 U/L (22-51) 08/06/21 17:25 Urine Color YELLOW 08/06/21 18:05 Urine Clarity CLEAR (CLEAR) 08/06/21 18:05 Urine pH 6.5 PH (5.0-7.5) 08/06/21 18:05 Ur Specific [place] 1.020 (1.002-1.030) 08/06/21 18:05 Urine Protein NEGATIVE mg/dL (NEGATIVE) 08/06/21 18:05 Urine Glucose (UA) NEGATIVE mg/dL (NEGATIVE) 08/06/21 18:05 Urine Ketones TRACE mg/dL (NEGATIVE) 08/06/21 18:05 Urine Occult Blood NEGATIVE (NEGATIVE) 08/06/21 18:05 Urine Nitrite NEGATIVE (NEGATIVE) 08/06/21 18:05 Urine Bilirubin NEGATIVE (NEGATIVE) 08/06/21 18:05 Urine Urobilinogen 0.2 (NORMAL) E.U./dL (NORMAL) 08/06/21 18:05 Ur Leukocyte Esterase NEGATIVE (NEGATIVE) 08/06/21 18:05 Ur Microscopic Review NOT INDICATED 08/06/21 18:05 Urine Culture Comments NOT INDICATED 08/06/21 18:05 Nasal Adenovirus (PCR) NOT DETECTED 08/06/21 19:30 Nasal B. parapertussis DNA (PCR) NOT DETECTED 08/06/21 19:30 Nasal Coronavir 229E PCR NOT DETECTED 08/06/21 19:30 Nasal Coronavir HKU1 PCR NOT DETECTED 08/06/21 19:30 Nasal Coronavir NL63 PCR NOT DETECTED 08/06/21 19:30 Nasal Coronavir OC43 PCR NOT DETECTED 08/06/21 19:30 Nasal Enterovir/Rhinovir PCR NOT DETECTED 08/06/21 19:30 Nasal Influenza B PCR NOT DETECTED 08/06/21 19:30 Nasal Influenza A PCR NOT DETECTED 08/06/21 19:30 Nasal Parainfluen 1 PCR NOT DETECTED 08/06/21 19:30 Nasal Parainfluen 2 PCR NOT DETECTED 08/06/21 19:30 Nasal Parainfluen 3 PCR NOT DETECTED 08/06/21 19:30 Nasal Parainfluen 4 PCR NOT DETECTED 08/06/21 19:30 Nasal RSV (PCR) NOT DETECTED 08/06/21 19:30 Nasal B.pertussis DNA PCR NOT DETECTED 08/06/21 19:30 Nasal C.pneumoniae (PCR) NOT DETECTED 08/06/21 19:30 [place] Human Metapneumo PCR NOT DETECTED 08/06/21 19:30 Nasal M.pneumoniae (PCR) NOT DETECTED 08/06/21 19:30 Nasal SARS-CoV-2 (PCR) NOT DETECTED 08/06/21 19:30 Sepsis Event Note (H) - Sepsis Criteria Sepsis Criteria: WBC count greater than 12,000 or less than 4000 ABX Reporting Has patient been on IV antibiotics over the past 48 hours?: Yes
[2021-08-08 07:25] LABS: BASOPHILS % (AUTO) 0.2 %; EOSINOPHILS % (AUTO) 0.3 %; HCT - HEMATOCRIT 41.3 % (42.0-52.0); HGB - HEMOGLOBIN 13.6 g/dL (14.0-18.0); LYMPHOCYTES # (AUTO) 0.5 10^3/uL (1.5-3.5); LYMPHOCYTES % (AUTO) 3.5 %; MEAN CORPUSCULAR HEMOGLOBIN 29.1 pg (27.0-31.0); MEAN CORPUSCULAR HGB CONC 32.9 g/dL (32.0-36.0); MEAN CORPUSCULAR VOLUME 88.2 fL (80.0-94.0); MEAN PLATELET VOLUME 9.2 fL (7.4-11.4); MONOCYTES # (AUTO) 0.4 10^3/uL (0.0-1.0); MONOCYTES % (AUTO) 3.1 %; NEUTROPHILS # (AUTO) 12.6 10^3/uL (1.5-6.6); NEUTROPHILS % (AUTO) 92.1 %; PLT - PLATELET COUNT 274 10^3/uL (130-450); RED BLOOD COUNT 4.68 10^6/uL (4.70-6.10); RED CELL DISTRIBUTION WIDTH 12.5 % (12.0-15.0); WHITE BLOOD COUNT 13.7 x10^3/uL (4.8-10.8)
[2021-08-08 07:49] LABS: ALBUMIN 2.8 g/dL (3.2-5.5); BILIRUBIN,TOTAL 2.9 mg/dL (0.2-1.0)
[2021-08-08 08:01] LABS: ALBUMIN/GLOBULIN RATIO 0.9 (1.0-2.2); CALCIUM 7.9 mg/dL (8.5-10.3); POTASSIUM 3.6 mmol/L (3.5-5.0)
--- NOTE | 2021-08-08 08:20 | PROVIDER PROGRESS NOTE ---
Subjective - General Admit Date: 08/06/21 - Review of Systems General: positive: Weakness, Fatigue HEENT: positive: No symptoms Pulmonary: positive: No symptoms Cardiovascular: positive: No symptoms Gastrointestinal: positive: Abdominal pain, Other All Other Systems: positive: Reviewed and negative - Other Other Information/Narrative: Mr. Greco reports that his abdominal pain is about the same. He thinks th at the hydromorphone has helped him some. He has not passed any flatus since coming into the hospital yesterday. He reports that he somewhat has the urge but he is afraid to.No fever overnight. Objective - Patient Data Reviewed Vital Signs: Yes Vital Signs: Vital Signs x48h Temp Pulse Resp BP Pulse Ox 08/08/21 07:54 36.7 C 88 16 127/73 95 08/08/21 04:34 37.2 C 91 16 125/73 94 Weight: Weight 08/06/21 08/07/21 08/08/21 23:59 23:59 23:59 Weight (kg) 99.79 kg Intake & Output: Intake and Output Totals x24h 08/06/21 08/07/21 08/08/21 23:59 23:59 23:59 Intake Total 1200 3579.167 200 Output Total 975 1050 275 Balance 225 2529.167 -75 - Lab Results Lab Results: 08/08/21 06:51 08/08/21 07:28 Other Lab Results: Lab Results x24hrs 08/08/21 08/08/21 Range/Units 07:28 06:51 WBC 13.7 H (4.8-10.8) x10^3/uL RBC 4.68 L (4.70-6.10) 10^6/uL Hgb 13.6 L (14.0-18.0) g/dL Hct 41.3 L (42.0-52.0) % MCV 88.2 (80.0-94.0) fL MCH 29.1 (27.0-31.0) pg MCHC 32.9 (32.0-36.0) g/dL RDW 12.5 (12.0-15.0) % Plt Count 274 (130-450) 10^3/uL MPV 9.2 (7.4-11.4) fL Neut # (Auto) 12.6 H (1.5-6.6) 10^3/uL Lymph # (Auto) 0.5 L (1.5-3.5) 10^3/uL [place] # (Auto) 0.4 (0.0-1.0) 10^3/uL Eos # (Auto) 0.0 (0.0-0.7) 10^3/uL Baso # (Auto) 0.0 (0.0-0.1) 10^3/uL Absolute Nucleated RBC 0.00 x10^3/uL Nucleated RBC % 0.0 /100WBC Sodium 135 (135-145) mmol/L Potassium 3.6 (3.5-5.0) mmol/L Chloride 100 L (101-111) mmol/L Carbon Dioxide 26 (21-32) mmol/L Anion Gap 9.0 (6-13) BUN 13 (6-20) mg/dL Creatinine 1.0 (0.6-1.2) mg/dL Estimated GFR (MDRD) 78 L (>89) Glucose 104 H (70-100) mg/dL Calcium 7.9 L (8.5-10.3) mg/dL Total Bilirubin 2.9 H (0.2-1.0) mg/dL AST 14 (10-42) IU/L ALT 16 (10-60) IU/L Alkaline Phosphatase 38 L (42-121) IU/L Total Protein 6.0 L (6.7-8.2) g/dL Albumin 2.8 L (3.2-5.5) g/dL Globulin 3.2 (2.1-4.2) g/dL Albumin/Globulin Ratio 0.9 L (1.0-2.2) - Imaging Results Imaging Results Comments: Free air and free fluid presumably secondary to perforated diverticulitis - Current Medications Current Medications: Current Medications Generic Name Dose Route Start Last Admin Trade Name Freq PRN Reason Stop Dose Admin Diphenhydramine HCl 25 mg 08/06/21 22:44 08/06/21 23:55 Diphenhydramine Inj 50 Mg/Ml Vial IVP 25 mg QPM PRN Administration Insomnia Heparin Sodium (Porcine) 5,000 unit 08/06/21 22:00 08/08/21 05:44 Heparin 5,000 Unit/Ml Vial SUBQ 5,000 unit TID BLAS Administration Hydromorphone HCl 1 mg 08/07/21 20:19 08/08/21 04:43 Hydromorphone 2 Mg/Ml Vial IVP 1 mg Q2H PRN Administration PAIN Lactated Ringer's 1,000 mls @ 125 mls/hr 08/06/21 21:00 08/08/21 01:01 Lr IV 125 mls/hr .Q8H BLAS Infusion Piperacillin Sod/Tazobactam 100 mls @ 200 mls/hr 08/07/21 00:00 08/08/21 06:45 Sod 3.375 gm/ Sodium Chloride IV Infused Q6HR BLAS Infusion Acetaminophen 100 mls @ 400 mls/hr 08/06/21 21:00 08/07/21 21:46 Ofirmev IV Infused BID BLAS Infusion Sodium Chloride 10 ml 08/06/21 20:37 08/06/21 21:51 Sodium Chloride Flush 0.9% 10 Ml Syringe IVP 10 ml PRN PRN Administration NEEDED PER PROVIDER ORDERS Sodium Chloride 10 ml 08/07/21 01:00 08/07/21 23:46 Sodium Chloride Flush 0.9% 10 Ml Syringe IVP 10 ml 0100,0900,1700 BLAS Administration - Physical Exam General Appearance: positive: No acute distress, Alert Eyes Bilateral: positive: Normal inspection, PERRL, EOMI ENT: positive: ENT inspection nml Neck: positive: Nml inspection Respiratory: positive: Chest non-tender, No respiratory distress, Breath sounds nml Cardiovascular: positive: Regular rate & rhythm Abdomen: positive: Tenderness, Guarding, Rebound, Other (Tender and distended with guarding and rebound. Very few bowel sounds.). negative: No distention Skin: positive: Color nml Neurologic/Psychiatric: positive: Oriented x3, CN's nml (2-12) ABX Reporting Has patient been on IV antibiotics over the past 48 hours?: Yes Impression/Plan - Problem List Problem List: Julissa diverticulitis in the setting of a 51-year-old gentleman who is otherwise quite healthy. I am very concerned that this gentleman is going to come to surgery. His white count is improved today down from 16 back to 13. It is notable that his bilirubin is elevated but that could be either blood reabsorption from the time of the perforation or just stasis.He appears uncomfortable. If he is able to pass flatus today, perhaps we can stay the course. If not, we may need to reconsider operation this afternoon.
[2021-08-08] MEDS: ACETAMINOPHEN 1,000 MG/100 ML 100 ML IV SCH ×2 (08:55→21:26)
[2021-08-08] MEDS: SODIUM CHLORIDE FLUSH 0.9% 10 ML SYRINGE IVP SCH ×2 (08:56→16:16)
[2021-08-08] MEDS: LACTATED RINGERS 1,000 ML IV SCH ×2 (08:56→17:21)
--- NOTE | 2021-08-08 09:15 | PHARMACY PROGRESS NOTE ---
- Best Possible Medication History Admit Date and Time: 08/06/212036 Processed by: Nursing Medication History completed: Yes Patient Interview: Completed As the person ultimately responsible for medication therapy, providers are able to order a medication from an existing home medication list in [facility] via the "Reconcile Routine" prior to Confirmation of that medication by intelligence support officer. Such practice is discouraged except when the physician, in their clinical judg ment, deems that a medical need exists for a medication without regard to previous use.
[2021-08-08] MEDS: HYDROmorphone 1 MG/ML CARPUJECT IVP PRN ×3 (12:26→19:42)
[2021-08-09] MEDS: SODIUM CHLORIDE FLUSH 0.9% 10 ML SYRINGE IVP SCH ×4 (00:40→05:49)
[2021-08-09] MEDS: PIPERACILLIN/TAZOBACTAM 3.375 GM in SODIUM CHLORIDE 0.9% MINIBAG 100 ML IV SCH ×4 (00:40→18:10)
[2021-08-09] MEDS: HYDROmorphone 1 MG/ML CARPUJECT IVP PRN ×4 (00:46→21:36)
[2021-08-09] MEDS: LACTATED RINGERS 1,000 ML IV SCH ×3 (02:41→12:09)
[2021-08-09] MEDS: SODIUM CHLORIDE FLUSH 0.9% 10 ML SYRINGE IVP PRN ×3 (02:46→18:58)
[2021-08-09] MEDS: ONDANSETRON 4 MG/2 ML VIAL IVP PRN ×2 (02:46→16:28)
[2021-08-09] MEDS ORDERED: PROCHLORPERAZINE 10 MG/2 ML VIAL IVP PRN (05:15)
[2021-08-09] MEDS: PANTOPRAZOLE 40 MG VIAL IV SCH ×2 (05:32→18:05)
--- NOTE | 2021-08-09 05:42 | PROVIDER PROGRESS NOTE ---
Hospitalist Cross-cover Note - Cross-Cover Note Cross-Cover Note: RN reported to me that at about 0400 pt complained of nausea and he got iv Zofran. He started complaining of acid reflux pain, different than his lower abdominal discomfort. At about 0445 he vomited about 300 cc of green-yellow bilious fluid. I evaluated the pt: VSS, He appeared in moderate distress from acid reflux pain and lower abdominal tenderness and from nausea. Abd: mildy distended, tender in low abdomen, no guarding or rebound, no audible bowel sounds in any quadrants. Imp: N/V GERD Probable ileus Diverticulitis w/ sigmoid perforation Urinary retention/obstruction w/ Ruiz in place Plan: add iv Compazine prn nausea, alternate with prn iv Zofran ng tube to suction, confirm placement w/ CXR KUB Xray also ordered iv Protonix b.i.d. hold Heparin dose, in case pt goes to surgery today will inform Gen Surg
[2021-08-09 06:30] LABS: HCT - HEMATOCRIT 43.1 % (42.0-52.0); HGB - HEMOGLOBIN 14.3 g/dL (14.0-18.0); MEAN CORPUSCULAR HEMOGLOBIN 29.5 pg (27.0-31.0); MEAN CORPUSCULAR HGB CONC 33.2 g/dL (32.0-36.0); MEAN CORPUSCULAR VOLUME 88.9 fL (80.0-94.0); MEAN PLATELET VOLUME 9.2 fL (7.4-11.4); RED BLOOD COUNT 4.85 10^6/uL (4.70-6.10); RED CELL DISTRIBUTION WIDTH 12.2 % (12.0-15.0); WHITE BLOOD COUNT 14.4 x10^3/uL (4.8-10.8)
[2021-08-09 06:35] LABS: CALCIUM 7.8 mg/dL (8.5-10.3); CREATININE 0.9 mg/dL (0.6-1.2); POTASSIUM 3.7 mmol/L (3.5-5.0)
[2021-08-09] MEDS ORDERED: PHENOL THROAT SPRAY 177 ML MM PRN (06:56)
--- NOTE | 2021-08-09 07:27 | PROVIDER PROGRESS NOTE ---
Assessment/Plan - Problem List (1) Perforation of sigmoid colon Assessment/Plan: WBC is 14.4. Patient currently n.p.o. On Zosyn. Pain management with [place] and oral Dilaudid as needed. General surgery primary. Will await further input regarding plan of treatment. (2) Diverticulitis Assessment/Plan: WBC is 14.4. Patient currently n.p.o. On Zosyn. Pain management with [place] and oral Dilaudid as needed. General surgery primary. Will await further input regarding plan of treatment. (3) Acute urinary retention Assessment/Plan: Likely secondary to inflammation from diverticulitis. Ruiz catheter in place (4) Bladder obstruction Assessment/Plan: Likely secondary to inflammation from diverticulitis. Ruiz catheter in place (5) Small bowel obstruction Assessment/Plan: Partial small bowel obstruction versus ileus. NG tube in place draining greenish dark liquid. N.p.o. Pain management with dilaudid 1 mg q2hrs as needed. Protonix 40mg bid IV. Zofran IV for nausea. IV hydration with normal saline General surgery following. - Current Meds Current Meds: Current Medications Generic Name Dose Route Start Last Admin Trade Name Freq PRN Reason Stop Dose Admin Diphenhydramine HCl 25 mg 08/06/21 22:44 08/06/21 23:55 Diphenhydramine Inj 50 Mg/Ml Vial IVP 25 mg QPM PRN Administration Insomnia Hydromorphone HCl 1 mg 08/08/21 10:40 08/09/21 05:31 Hydromorphone 1 Mg/Ml Carpuject IVP 1 mg Q2H PRN Administration PAIN Lactated Ringer's 1,000 mls @ 125 mls/hr 08/06/21 21:00 08/09/21 02:41 Lr IV 125 mls/hr .Q8H BLAS Administration Piperacillin Sod/Tazobactam 100 mls @ 200 mls/hr 08/07/21 00:00 08/09/21 06:02 Sod 3.375 gm/ Sodium Chloride IV Infused Q6HR BLAS Infusion Acetaminophen 100 mls @ 400 mls/hr 08/06/21 21:00 08/08/21 21:44 Ofirmev IV Infused BID BLAS Infusion Ondansetron HCl 4 mg 08/06/21 20:37 08/09/21 02:46 Ondansetron 4 Mg/2 Ml Vial IVP 4 mg Q6HR PRN Administration Nausea / Vomiting Pantoprazole Sodium 40 mg 08/09/21 05:16 08/09/21 05:32 Pantoprazole 40 Mg Vial IV 40 mg Q12H BLAS Administration Prochlorperazine Edisylate 10 mg 08/09/21 05:15 08/09/21 05:48 Prochlorperazine 10 Mg/2 Ml Vial IVP 10 mg Q6HR PRN Administration Nausea / Vomiting Sodium Chloride 10 ml 08/06/21 20:37 08/09/21 05:32 Sodium Chloride Flush 0.9% 10 Ml Syringe IVP 10 ml PRN PRN Administration NEEDED PER PROVIDER ORDERS Sodium Chloride 10 ml 08/07/21 01:00 08/09/21 05:49 Sodium Chloride Flush 0.9% 10 Ml Syringe IVP 10 ml 0100,0900,1700 BLAS Administration - Lab Result Fish Bone Diagrams: 08/09/21 06:05 08/09/21 06:05 Subjective - Subjective Patient Reports: Other (Currently resting comfortably. Rated pain 4 out of 10. However the patient had significant/ worsening pain last night and heartburn. He also vomited about 300mls. NG tube was placed.) Objective Vital Signs: Vital Signs - 24 hr 08/08/21 08/08/21 08/08/21 07:54 12:17 16:34 Temperature 36.7 C 36.7 C 36.7 C Heart Rate [ 88 83 90 Brachial] Respiratory 16 16 17 Rate Blood Pressure 127/73 136/86 H 140/83 H [Left Brachial artery] O2 Saturation 95 96 96 08/08/21 08/09/21 08/09/21 20:52 00:58 05:00 Temperature 36.9 C 37.0 C 36.9 C Heart Rate [ 91 89 89 Brachial] Respiratory 16 16 17 Rate Blood Pressure 142/87 H 143/83 H 158/87 H [Left Brachial artery] O2 Saturation 94 96 95 Oxygen O2 Source Room air I&O (Last 24 Hrs): Intake and Output Totals x24h 08/07/21 08/08/21 08/09/21 23:59 23:59 23:59 Intake Total 3579.167 3022.917 618.75 Output Total 1050 1125 550 Balance 2529.167 1897.917 68.75 Comments/Notes: General: Alert, Oriented x3, Mild distress, Moderate distress HEENT: PERRLA, EOMI Neck: Supple, No JVD Neuro: Alert, Oriented Times 3 Cardiovascular: Regular rate Respiratory: Chest non-tender, No respiratory distress, Breath sounds nml Abdomen: Soft, Other (tender to palpation on all quadrants). Bowel sound present Extremities: No clubbing, No cyanosis, No edema, No tenderness/swelling Skin: No rashes, No breakdown - Results Results: Laboratory Results WBC 14.4 x10^3/uL (4.8-10.8) H 08/09/21 06:05 RBC 4.85 10^6/uL (4.70-6.10) 08/09/21 06:05 Hgb 14.3 g/dL (14.0-18.0) 08/09/21 06:05 Hct 43.1 % (42.0-52.0) 08/09/21 06:05 MCV 88.9 fL (80.0-94.0) 08/09/21 06:05 MCH 29.5 pg (27.0-31.0) 08/09/21 06:05 MCHC 33.2 g/dL (32.0-36.0) 08/09/21 06:05 RDW 12.2 % (12.0-15.0) 08/09/21 06:05 Plt Count 293 10^3/uL (130-450) 08/09/21 06:05 MPV 9.2 fL (7.4-11.4) 08/09/21 06:05 Neut # (Auto) 12.6 10^3/uL (1.5-6.6) H 08/08/21 06:51 Lymph # (Auto) 0.5 10^3/uL (1.5-3.5) L 08/08/21 06:51 [place] # (Auto) 0.4 10^3/uL (0.0-1.0) 08/08/21 06:51 Eos # (Auto) 0.0 10^3/uL (0.0-0.7) 08/08/21 06:51 Baso # (Auto) 0.0 10^3/uL (0.0-0.1) 08/08/21 06:51 Absolute Nucleated RBC 0.00 x10^3/uL 08/08/21 06:51 Nucleated RBC % 0.0 /100WBC 08/08/21 06:51 Sodium 135 mmol/L (135-145) 08/09/21 06:05 Potassium 3.7 mmol/L (3.5-5.0) 08/09/21 06:05 Chloride 100 mmol/L (101-111) L 08/09/21 06:05 Carbon Dioxide 25 mmol/L (21-32) 08/09/21 06:05 Anion Gap 10.0 (6-13) 08/09/21 06:05 BUN 14 mg/dL (6-20) 08/09/21 06:05 Creatinine 0.9 mg/dL (0.6-1.2) 08/09/21 06:05 Estimated GFR (MDRD) 88 (>89) L 08/09/21 06:05 Glucose 115 mg/dL (70-100) H 08/09/21 06:05 Lactic Acid 1.4 mmol/L (0.5-2.2) 08/07/21 06:18 Calcium 7.8 mg/dL (8.5-10.3) L 08/09/21 06:05 Magnesium 1.8 mg/dL (1.7-2.8) 08/07/21 06:18 Total Bilirubin 2.9 mg/dL (0.2-1.0) H 08/08/21 07:28 AST 14 IU/L (10-42) 08/08/21 07:28 ALT 16 IU/L (10-60) 08/08/21 07:28 Alkaline Phosphatase 38 IU/L (42-121) L 08/08/21 07:28 Total Protein 6.0 g/dL (6.7-8.2) L 08/08/21 07:28 Albumin 2.8 g/dL (3.2-5.5) L 08/08/21 07:28 Globulin 3.2 g/dL (2.1-4.2) 08/08/21 07:28 Albumin/Globulin Ratio 0.9 (1.0-2.2) L 08/08/21 07:28 Lipase 22 U/L (22-51) 08/06/21 17:25 Urine Color YELLOW 08/06/21 18:05 Urine Clarity CLEAR (CLEAR) 08/06/21 18:05 Urine pH 6.5 PH (5.0-7.5) 08/06/21 18:05 Ur Specific [place] 1.020 (1.002-1.030) 08/06/21 18:05 Urine Protein NEGATIVE mg/dL (NEGATIVE) 08/06/21 18:05 Urine Glucose (UA) NEGATIVE mg/dL (NEGATIVE) 08/06/21 18:05 Urine Ketones TRACE mg/dL (NEGATIVE) 08/06/21 18:05 Urine Occult Blood NEGATIVE (NEGATIVE) 08/06/21 18:05 Urine Nitrite NEGATIVE (NEGATIVE) 08/06/21 18:05 Urine Bilirubin NEGATIVE (NEGATIVE) 08/06/21 18:05 Urine Urobilinogen 0.2 (NORMAL) E.U./dL (NORMAL) 08/06/21 18:05 Ur Leukocyte Esterase NEGATIVE (NEGATIVE) 08/06/21 18:05 Ur Microscopic Review NOT INDICATED 08/06/21 18:05 Urine Culture Comments NOT INDICATED 08/06/21 18:05 Nasal Adenovirus (PCR) NOT DETECTED 08/06/21 19:30 Nasal B. parapertussis DNA (PCR) NOT DETECTED 08/06/21 19:30 Nasal Coronavir 229E PCR NOT DETECTED 08/06/21 19:30 Nasal Coronavir HKU1 PCR NOT DETECTED 08/06/21 19:30 Nasal Coronavir NL63 PCR NOT DETECTED 08/06/21 19:30 Nasal Coronavir OC43 PCR NOT DETECTED 08/06/21 19:30 Nasal Enterovir/Rhinovir PCR NOT DETECTED 08/06/21 19:30 Nasal Influenza B PCR NOT DETECTED 08/06/21 19:30 Nasal Influenza A PCR NOT DETECTED 08/06/21 19:30 Nasal Parainfluen 1 PCR NOT DETECTED 08/06/21 19:30 Nasal Parainfluen 2 PCR NOT DETECTED 08/06/21 19:30 Nasal Parainfluen 3 PCR NOT DETECTED 08/06/21 19:30 Nasal Parainfluen 4 PCR NOT DETECTED 08/06/21 19:30 Nasal RSV (PCR) NOT DETECTED 08/06/21 19:30 Nasal B.pertussis DNA PCR NOT DETECTED 08/06/21 19:30 Nasal C.pneumoniae (PCR) NOT DETECTED 08/06/21 19:30 Jed Human Metapneumo PCR NOT DETECTED 08/06/21 19:30 Nasal M.pneumoniae (PCR) NOT DETECTED 08/06/21 19:30 Nasal SARS-CoV-2 (PCR) NOT DETECTED 08/06/21 19:30 Sepsis Event Note (H) - Sepsis Criteria Sepsis Criteria: WBC count greater than 12,000 or less than 4000 ABX Reporting Has patient been on IV antibiotics over the past 48 hours?: Yes
--- NOTE | 2021-08-09 08:17 | XRAY Report ---
PROCEDURE: Chest for Line Placement INDICATIONS: Ng tube placement TECHNIQUE: One view of the chest was acquired. COMPARISON: CT abdomen and pelvis with contrast, 08/06/2020. FINDINGS: Surgical changes and devices: There is a nasogastric tube in the stomach. Lungs and pleura: No pleural effusions or pneumothorax. Lungs are clear. Mediastinum: Mediastinal contours appear normal. Heart size is normal. Bones and chest wall: Free peritoneal air under the right hemidiaphragm. No suspicious bony lesions. Overlying soft tissues appear unremarkable. IMPRESSION: 1. Nasogastric tube tip in the stomach. 2. Free peritoneal air consistent with viscus perforation. Reviewed by: Serjio Delcid MD on 08/09/2021 8:16 AM PST Approved by: Serjio Delcid MD on 08/09/2021 8:16 AM [facility] Station ID: [id number]
--- NOTE | 2021-08-09 08:21 | XRAY Report ---
PROCEDURE: Abdomen 1 View X-Ray INDICATIONS: Diverticulitis, now N/V, suspect ileus TECHNIQUE: 1 view of the abdomen were acquired. COMPARISON: CT abdomen pelvis 08/06/2021 FINDINGS: Surgical changes and devices: Nasogastric tube is partially visualized. Bowel: No pneumoperitoneum. The bowel gas pattern demonstrates dilated loops of bowel appearing to be predominantly small bowel. It is noted free air was identified on prior exam of 08/06/2021. However , hemidiaphragms are not fully included in view of the evaluation. Soft tissues: No masses; visualized solid organ contours appear normal in size. No suspicious abdom inal calcifications. Bones: No suspicious bony abnormalities. IMPRESSION: Moderately dilated loops of bowel most suggestive partial small bowel obstruction. Signi ficant ileus cannot be excluded. The above findings are concordant with preliminary report. Reviewed by: Kate Ansari MD on 08/09/2021 8:19 AM PST Approved by: Kate Ansari MD on 08/09/2021 8:19 AM PST Station ID: [id number]
[2021-08-09] MEDS: ACETAMINOPHEN 1,000 MG/100 ML 100 ML IV SCH ×2 (08:48→21:08)
[2021-08-09] MEDS ORDERED: SODIUM CHLORIDE 0.9% 1,000 ML IV ONE (11:00)
[2021-08-09] MEDS ORDERED: BENZOCAINE/MENTHOL LOZENGE MM PRN (11:18)
--- NOTE | 2021-08-09 13:45 | PROVIDER PROGRESS NOTE ---
Subjective - Prog Note Date Prog Note Date: 08/09/21 - Subjective Pt reports feeling: Improved (less pain. passing gas. N/V last pm. epigastric pain prior. NGT place and feeling better) Objective - Vital Signs/Intake & Output Vital Signs: Vital Signs x48h Temp Pulse Resp BP Pulse Ox 08/09/21 13:00 36.4 C L 88 16 154/94 H 96 08/09/21 08:23 37.2 C 82 16 134/75 H 93 Intake & Output: Intake & Output 08/06/21 08/07/21 08/08/21 08/09/21 23:59 23:59 23:59 23:59 Intake Total 1200 3579.167 3022.917 1853.333 Output Total 975 1050 1125 950 Balance 225 2529.167 1897.917 903.333 - Objective General Appearance: positive: No acute distress, Alert Eyes Bilateral: positive: PERRL, EOMI ENT: positive: No signs of dehydration Neck: positive: No JVD Respiratory: positive: No respiratory distress Abdomen: positive: No distention, Other (minimal left lower quadrant tenderness to deep palpation no peritoneal signs) Neurologic/Psychiatric: positive: Oriented x3 - Lab Results Fish Bones: 08/09/21 06:05 08/09/21 06:05 Other Labs: Lab Results x24hrs 08/09/21 08/09/21 Range/Units 06:05 06:05 WBC 14.4 H (4.8-10.8) x10^3/uL RBC 4.85 (4.70-6.10) 10^6/uL Hgb 14.3 (14.0-18.0) g/dL Hct 43.1 (42.0-52.0) % MCV 88.9 (80.0-94.0) fL MCH 29.5 (27.0-31.0) pg MCHC 33.2 (32.0-36.0) g/dL RDW 12.2 (12.0-15.0) % Plt Count 293 (130-450) 10^3/uL MPV 9.2 (7.4-11.4) fL Sodium 135 (135-145) mmol/L Potassium 3.7 (3.5-5.0) mmol/L Chloride 100 L (101-111) mmol/L Carbon Dioxide 25 (21-32) mmol/L Anion Gap 10.0 (6-13) BUN 14 (6-20) mg/dL Creatinine 0.9 (0.6-1.2) mg/dL Estimated GFR (MDRD) 88 L (>89) Glucose 115 H (70-100) mg/dL Calcium 7.8 L (8.5-10.3) mg/dL Sepsis Event Note (H) - Sepsis Criteria Sepsis Criteria: WBC count greater than 12,000 or less than 4000 Assessment/Plan - Problem List (1) Diverticulitis Impression: clinically improving daily. ileus requiring ngt; however, this is improving. passing gas. abdomen now non distended benign abdomen dark urine d/c akers ivf bolus continue present care otherwise
[2021-08-10] MEDS: PIPERACILLIN/TAZOBACTAM 3.375 GM in SODIUM CHLORIDE 0.9% MINIBAG 100 ML IV SCH ×4 (00:55→18:43)
[2021-08-10] MEDS: diphenhydrAMINE INJ 50 MG/ML VIAL IVP PRN (00:56)
[2021-08-10] MEDS: SODIUM CHLORIDE FLUSH 0.9% 10 ML SYRINGE IVP SCH ×2 (00:57→04:49)
[2021-08-10] MEDS: LACTATED RINGERS 1,000 ML IV SCH ×4 (01:03→18:30)
[2021-08-10] MEDS: HYDROmorphone 1 MG/ML CARPUJECT IVP PRN ×4 (04:49→20:03)
[2021-08-10] MEDS: PANTOPRAZOLE 40 MG VIAL IV SCH ×2 (04:49→18:39)
[2021-08-10 06:35] LABS: HCT - HEMATOCRIT 39.4 % (42.0-52.0); HGB - HEMOGLOBIN 12.9 g/dL (14.0-18.0); MEAN CORPUSCULAR HEMOGLOBIN 28.7 pg (27.0-31.0); MEAN CORPUSCULAR HGB CONC 32.7 g/dL (32.0-36.0); MEAN CORPUSCULAR VOLUME 87.8 fL (80.0-94.0); MEAN PLATELET VOLUME 8.9 fL (7.4-11.4); RED BLOOD COUNT 4.49 10^6/uL (4.70-6.10); RED CELL DISTRIBUTION WIDTH 12.3 % (12.0-15.0); WHITE BLOOD COUNT 13.1 x10^3/uL (4.8-10.8)
[2021-08-10 06:48] LABS: CALCIUM 7.6 mg/dL (8.5-10.3); CREATININE 0.7 mg/dL (0.6-1.2); POTASSIUM 3.5 mmol/L (3.5-5.0)
--- NOTE | 2021-08-10 07:43 | PROVIDER PROGRESS NOTE ---
Assessment/Plan - Problem List (1) Perforation of sigmoid colon Assessment/Plan: WBC is 13.1. Clear liquid diet initiated On Zosyn. Pain management with [place] and/or Dilaudid as needed. [place] potential risk of patient developing an abscess. Should this happen plan would be for a percutaneous drainage tube. General surgery following (2) Diverticulitis Assessment/Plan: WBC is 13.1. Clear liquid diet initiated On Zosyn. Pain management with [place] and/or Dilaudid as needed. [place] potential risk of patient developing an abscess. Should this happen plan would be for a percutaneous drainage tube. General surgery following (3) Acute urinary retention Assessment/Plan: Likely secondary to inflammation from diverticulitis. Ruiz catheter discontinued (4) Bladder obstruction Assessment/Plan: ikely secondary to inflammation from diverticulitis. Improved/ Resolved. Ruiz catheter discontinued (5) Small bowel obstruction Assessment/Plan: Partial small bowel obstruction versus ileus. Patient had a bowel movement yesterday NG tube removed today. Clear liquid diet initiated Pain management with dilaudid 1 mg q2hrs as needed. Protonix 40mg bid IV. Zofran IV for nausea. IV hydration with normal saline General surgery following. - Current Meds Current Meds: Current Medications Generic Name Dose Route Start Last Admin Trade Name Freq PRN Reason Stop Dose Admin Diphenhydramine HCl 25 mg 08/06/21 22:44 08/10/21 00:56 Diphenhydramine Inj 50 Mg/Ml Vial IVP 25 mg QPM PRN Administration Insomnia Hydromorphone HCl 1 mg 08/08/21 10:40 08/10/21 04:49 Hydromorphone 1 Mg/Ml Carpuject IVP 1 mg Q2H PRN Administration PAIN Lactated Ringer's 1,000 mls @ 125 mls/hr 08/06/21 21:00 08/10/21 01:03 Lr IV 125 mls/hr .Q8H BLAS Administration Piperacillin Sod/Tazobactam 100 mls @ 200 mls/hr 08/07/21 00:00 08/10/21 06:40 Sod 3.375 gm/ Sodium Chloride IV Infused Q6HR BLAS Infusion Acetaminophen 100 mls @ 400 mls/hr 08/06/21 21:00 08/09/21 21:25 Ofirmev IV Infused BID BLAS Infusion Ondansetron HCl 4 mg 08/06/21 20:37 08/09/21 16:28 Ondansetron 4 Mg/2 Ml Vial IVP 4 mg Q6HR PRN Administration Nausea / Vomiting Pantoprazole Sodium 40 mg 08/09/21 05:16 08/10/21 04:49 Pantoprazole 40 Mg Vial IV 40 mg Q12H BLAS Administration Phenol/Menthol 2 sprays 08/09/21 06:56 08/09/21 12:03 Phenol Throat [place] 177 Ml MM 2 sprays Q2HR PRN Administration Throat Pain Prochlorperazine Edisylate 10 mg 08/09/21 05:15 08/09/21 05:48 Prochlorperazine 10 Mg/2 Ml Vial IVP 10 mg Q6HR PRN Administration Nausea / Vomiting Sodium Chloride 10 ml 08/06/21 20:37 08/09/21 18:58 Sodium Chloride Flush 0.9% 10 Ml Syringe IVP 10 ml PRN PRN Administration NEEDED PER PROVIDER ORDERS Sodium Chloride 10 ml 08/07/21 01:00 08/10/21 04:49 Sodium Chloride Flush 0.9% 10 Ml Syringe IVP 10 ml 0100,0900,1700 BLAS Administration Throat Lozenges 1 lozenge 08/09/21 11:18 08/09/21 12:03 Benzocaine/Menthol Lozenge MM 1 lozenge Q2HR PRN Administration Throat pain - Lab Result Tobias Flores Diagrams: 08/10/21 06:06 08/10/21 06:06 Subjective - Subjective Patient Reports: Other (Patient was resting calmly in bed. He rated his pain 4 out of 10. He reported having a bowel movement yesterday.) Objective Vital Signs: Vital Signs - 24 hr 08/09/21 08/09/21 08/09/21 08:23 13:00 16:24 Temperature 37.2 C 36.4 C L 36.7 C Heart Rate [ 82 88 77 Brachial] Respiratory 16 16 18 Rate Blood Pressure 134/75 H 154/94 H 154/82 H [Left Brachial artery] O2 Saturation 93 96 96 08/09/21 08/10/21 08/10/21 20:34 01:15 05:06 Temperature 36.9 C 36.7 C 36.9 C Heart Rate [ 74 80 76 Brachial] Respiratory 16 17 18 Rate Blood Pressure 131/79 H 140/70 H 144/82 H [Left Brachial artery] O2 Saturation 95 96 94 Oxygen O2 Source Room air I&O (Last 24 Hrs): Intake and Output Totals x24h 08/08/21 08/09/21 08/10/21 23:59 23:59 23:59 Intake Total 3022.917 2709.583 623.75 Output Total 1125 1875 425 Balance 1897.917 834.583 198.75 General: Alert, Oriented x3, Mild distress HEENT: Atraumatic, PERRLA Neck: Supple, No JVD Neuro: Alert, Oriented Times 3 Cardiovascular: Regular rate, No murmurs Respiratory: Chest non-tender, No respiratory distress, Breath sounds nml Abdomen: Normal bowel sounds, Soft, Other (mild tenderness to palpation) Extremities: No clubbing, No cyanosis, No edema Skin: No rashes, No breakdown - Results Results: Laboratory Results WBC 13.1 x10^3/uL (4.8-10.8) H 08/10/21 06:06 RBC 4.49 10^6/uL (4.70-6.10) L 08/10/21 06:06 Hgb 12.9 g/dL (14.0-18.0) L 08/10/21 06:06 Hct 39.4 % (42.0-52.0) L 08/10/21 06:06 MCV 87.8 fL (80.0-94.0) 08/10/21 06:06 MCH 28.7 pg (27.0-31.0) 08/10/21 06:06 MCHC 32.7 g/dL (32.0-36.0) 08/10/21 06:06 RDW 12.3 % (12.0-15.0) 08/10/21 06:06 Plt Count 358 10^3/uL (130-450) 08/10/21 06:06 MPV 8.9 fL (7.4-11.4) 08/10/21 06:06 Neut # (Auto) 12.6 10^3/uL (1.5-6.6) H 08/08/21 06:51 Lymph # (Auto) 0.5 10^3/uL (1.5-3.5) L 08/08/21 06:51 [place] # (Auto) 0.4 10^3/uL (0.0-1.0) 08/08/21 06:51 Eos # (Auto) 0.0 10^3/uL (0.0-0.7) 08/08/21 06:51 Baso # (Auto) 0.0 10^3/uL (0.0-0.1) 08/08/21 06:51 Absolute Nucleated RBC 0.00 x10^3/uL 08/08/21 06:51 Nucleated RBC % 0.0 /100WBC 08/08/21 06:51 Sodium 139 mmol/L (135-145) 08/10/21 06:06 Potassium 3.5 mmol/L (3.5-5.0) 08/10/21 06:06 Chloride 103 mmol/L (101-111) 08/10/21 06:06 Carbon Dioxide 27 mmol/L (21-32) 08/10/21 06:06 Anion Gap 9.0 (6-13) 08/10/21 06:06 BUN 12 mg/dL (6-20) 08/10/21 06:06 Creatinine 0.7 mg/dL (0.6-1.2) 08/10/21 06:06 Estimated GFR (MDRD) 118 (>89) 08/10/21 06:06 Glucose 107 mg/dL (70-100) H 08/10/21 06:06 Lactic Acid 1.4 mmol/L (0.5-2.2) 08/07/21 06:18 Calcium 7.6 mg/dL (8.5-10.3) L 08/10/21 06:06 Magnesium 1.8 mg/dL (1.7-2.8) 08/07/21 06:18 Total Bilirubin 2.9 mg/dL (0.2-1.0) H 08/08/21 07:28 AST 14 IU/L (10-42) 08/08/21 07:28 ALT 16 IU/L (10-60) 08/08/21 07:28 Alkaline Phosphatase 38 IU/L (42-121) L 08/08/21 07:28 Total Protein 6.0 g/dL (6.7-8.2) L 08/08/21 07:28 Albumin 2.8 g/dL (3.2-5.5) L 08/08/21 07:28 Globulin 3.2 g/dL (2.1-4.2) 08/08/21 07:28 Albumin/Globulin Ratio 0.9 (1.0-2.2) L 08/08/21 07:28 Lipase 22 U/L (22-51) 08/06/21 17:25 Urine Color YELLOW 08/06/21 18:05 Urine Clarity CLEAR (CLEAR) 08/06/21 18:05 Urine pH 6.5 PH (5.0-7.5) 08/06/21 18:05 Ur Specific [place] 1.020 (1.002-1.030) 08/06/21 18:05 Urine Protein NEGATIVE mg/dL (NEGATIVE) 08/06/21 18:05 Urine Glucose (UA) NEGATIVE mg/dL (NEGATIVE) 08/06/21 18:05 Urine Ketones TRACE mg/dL (NEGATIVE) 08/06/21 18:05 Urine Occult Blood NEGATIVE (NEGATIVE) 08/06/21 18:05 Urine Nitrite NEGATIVE (NEGATIVE) 08/06/21 18:05 Urine Bilirubin NEGATIVE (NEGATIVE) 08/06/21 18:05 Urine Urobilinogen 0.2 (NORMAL) E.U./dL (NORMAL) 08/06/21 18:05 Ur Leukocyte Esterase NEGATIVE (NEGATIVE) 08/06/21 18:05 Ur Microscopic Review NOT INDICATED 08/06/21 18:05 Urine Culture Comments NOT INDICATED 08/06/21 18:05 Nasal Adenovirus (PCR) NOT DETECTED 08/06/21 19:30 Nasal B. parapertussis DNA (PCR) NOT DETECTED 08/06/21 19:30 Nasal Coronavir 229E PCR NOT DETECTED 08/06/21 19:30 Nasal Coronavir HKU1 PCR NOT DETECTED 08/06/21 19:30 Nasal Coronavir NL63 PCR NOT DETECTED 08/06/21 19:30 Nasal Coronavir OC43 PCR NOT DETECTED 08/06/21 19:30 Nasal Enterovir/Rhinovir PCR NOT DETECTED 08/06/21 19:30 Nasal Influenza B PCR NOT DETECTED 08/06/21 19:30 Nasal Influenza A PCR NOT DETECTED 08/06/21 19:30 Nasal Parainfluen 1 PCR NOT DETECTED 08/06/21 19:30 Nasal Parainfluen 2 PCR NOT DETECTED 08/06/21 19:30 Nasal Parainfluen 3 PCR NOT DETECTED 08/06/21 19:30 Nasal Parainfluen 4 PCR NOT DETECTED 08/06/21 19:30 Nasal RSV (PCR) NOT DETECTED 08/06/21 19:30 Nasal B.pertussis DNA PCR NOT DETECTED 08/06/21 19:30 Nasal C.pneumoniae (PCR) NOT DETECTED 08/06/21 19:30 [place] Human Metapneumo PCR NOT DETECTED 08/06/21 19:30 Nasal M.pneumoniae (PCR) NOT DETECTED 08/06/21 19:30 Nasal SARS-CoV-2 (PCR) NOT DETECTED 08/06/21 19:30 Sepsis Event Note (H) - Sepsis Criteria Sepsis Criteria: WBC count greater than 12,000 or less than 4000 ABX Reporting Has patient been on IV antibiotics over the past 48 hours?: Yes
[2021-08-10] MEDS: ACETAMINOPHEN 1,000 MG/100 ML 100 ML IV SCH ×2 (09:12→22:21)
--- NOTE | 2021-08-10 12:54 | PROVIDER PROGRESS NOTE ---
Subjective - General Admit Date: 08/06/21 - Review of Systems General: positive: Weakness, Fatigue HEENT: positive: No symptoms Pulmonary: positive: No symptoms Cardiovascular: positive: No symptoms Gastrointestinal: positive: Abdominal pain, Other (Pain is better and nausea has resolved.) Genitourinary: positive: No symptoms All Other Systems: positive: Reviewed and negative - Other Other Information/Narrative: Mr. Greco reports he is feeling better. Pain is better and he reports passing much flatus yesterday. A few small bowel movements today. Nausea has resolved. Objective - Patient Data Vital Signs: Vital Signs x48h Temp Pulse Resp BP Pulse Ox 08/10/21 12:33 36.9 C 66 16 138/77 H 96 08/10/21 07:45 36.9 C 68 18 125/71 96 08/10/21 05:06 36.9 C 76 18 144/82 H 94 Intake & Output: Intake and Output Totals x24h 08/08/21 08/09/21 08/10/21 23:59 23:59 23:59 Intake Total 3022.917 2709.583 1743.75 Output Total 1125 1875 1000 Balance 1897.917 834.583 743.75 - Lab Results Lab Results: 08/10/21 06:06 08/10/21 06:06 Other Lab Results: Lab Results x24hrs 08/10/21 08/10/21 Range/Units 06:06 06:06 WBC 13.1 H (4.8-10.8) x10^3/uL RBC 4.49 L (4.70-6.10) 10^6/uL Hgb 12.9 L (14.0-18.0) g/dL Hct 39.4 L (42.0-52.0) % MCV 87.8 (80.0-94.0) fL MCH 28.7 (27.0-31.0) pg MCHC 32.7 (32.0-36.0) g/dL RDW 12.3 (12.0-15.0) % Plt Count 358 (130-450) 10^3/uL MPV 8.9 (7.4-11.4) fL Sodium 139 (135-145) mmol/L Potassium 3.5 (3.5-5.0) mmol/L Chloride 103 (101-111) mmol/L Carbon Dioxide 27 (21-32) mmol/L Anion Gap 9.0 (6-13) BUN 12 (6-20) mg/dL Creatinine 0.7 (0.6-1.2) mg/dL Estimated GFR (MDRD) 118 (>89) Glucose 107 H (70-100) mg/dL Calcium 7.6 L (8.5-10.3) mg/dL - Current Medications Current Medications: Current Medications Generic Name Dose Route Start Last Admin Trade Name Freq PRN Reason Stop Dose Admin Diphenhydramine HCl 25 mg 08/06/21 22:44 08/10/21 00:56 Diphenhydramine Inj 50 Mg/Ml Vial IVP 25 mg QPM PRN Administration Insomnia Hydromorphone HCl 1 mg 08/08/21 10:40 08/10/21 04:49 Hydromorphone 1 Mg/Ml Carpuject IVP 1 mg Q2H PRN Administration PAIN Lactated [place]inger[place] 1,000 mls @ 125 mls/hr 08/06/21 21:00 08/10/21 10:16 Lr IV 125 mls/hr .Q8H BLAS Administration Piperacillin Sod/Tazobactam 100 mls @ 200 mls/hr 08/07/21 00:00 08/10/21 06:40 Sod 3.375 gm/ Sodium Chloride IV Infused Q6HR BLAS Infusion Acetaminophen 100 mls @ 400 mls/hr 08/06/21 21:00 08/10/21 09:30 Ofirmev IV Infused BID BLAS Infusion Ondansetron HCl 4 mg 08/06/21 20:37 08/09/21 16:28 Ondansetron 4 Mg/2 Ml Vial IVP 4 mg Q6HR PRN Administration Nausea / Vomiting Pantoprazole Sodium 40 mg 08/09/21 05:16 08/10/21 04:49 Pantoprazole 40 Mg Vial IV 40 mg Q12H BLAS Administration Phenol/Menthol 2 sprays 08/09/21 06:56 08/09/21 12:03 Phenol Throat [place] 177 Ml MM 2 sprays Q2HR PRN Administration Throat Pain Prochlorperazine Edisylate 10 mg 08/09/21 05:15 08/09/21 05:48 Prochlorperazine 10 Mg/2 Ml Vial IVP 10 mg Q6HR PRN Administration Nausea / Vomiting Sodium Chloride 10 ml 08/06/21 20:37 08/09/21 18:58 Sodium Chloride Flush 0.9% 10 Ml Syringe IVP 10 ml PRN PRN Administration NEEDED PER PROVIDER ORDERS Sodium Chloride 10 ml 08/07/21 01:00 08/10/21 04:49 Sodium Chloride Flush 0.9% 10 Ml Syringe IVP 10 ml 0100,0900,1700 BLAS Administration Throat Lozenges 1 lozenge 08/09/21 11:18 08/09/21 12:03 Benzocaine/Menthol Lozenge MM 1 lozenge Q2HR PRN Administration Throat pain - Physical Exam General Appearance: positive: No acute distress, Alert Eyes Bilateral: positive: Normal inspection ENT: positive: ENT inspection nml Neck: positive: Nml inspection Respiratory: positive: No respiratory distress Cardiovascular: positive: Regular rate & rhythm Abdomen: positive: No distention, Tenderness, Other (Much less distended and tender than on prior exams. Thin NGT out put.) ABX Reporting Has patient been on IV antibiotics over the past 48 hours?: Yes Impression/Plan - Problem List Problem List: Perforated diverticulitis with free air and fluid. 1. Improving with conservative management 2. Remove NGT 3. Clear liquid diet and will advance as tolerated 4. Check stool for c.diff 5. CT of the abdomen and pelvis in the AM to evaluate for abscess 6. Continue antibiotics
[2021-08-10] MEDS: SODIUM CHLORIDE FLUSH 0.9% 10 ML SYRINGE IVP PRN ×2 (12:58→20:04)
[2021-08-11] MEDS: HYDROmorphone 1 MG/ML CARPUJECT IVP PRN ×7 (00:19→23:43)
[2021-08-11] MEDS: PIPERACILLIN/TAZOBACTAM 3.375 GM in SODIUM CHLORIDE 0.9% MINIBAG 100 ML IV SCH ×5 (00:19→23:44)
[2021-08-11] MEDS: SODIUM CHLORIDE FLUSH 0.9% 10 ML SYRINGE IVP SCH ×4 (00:20→23:43)
[2021-08-11] MEDS: LACTATED RINGERS 1,000 ML IV SCH ×2 (02:45→14:54)
[2021-08-11] MEDS ORDERED: IOPAMIDOL-300 50 ML VIAL ONE (05:25)
[2021-08-11] MEDS ORDERED: iohexoL-300 100 ML VIAL ONE (05:25)
[2021-08-11] MEDS: ONDANSETRON 4 MG/2 ML VIAL IVP PRN ×3 (05:57→23:43)
[2021-08-11] MEDS: PANTOPRAZOLE 40 MG VIAL IV SCH ×2 (06:00→18:36)
[2021-08-11] MEDS ORDERED: WITCH HAZEL/GLYCERIN 1 PAD TOP PRN (06:13)
[2021-08-11 06:49] LABS: HCT - HEMATOCRIT 41.4 % (42.0-52.0); HGB - HEMOGLOBIN 13.5 g/dL (14.0-18.0); MEAN CORPUSCULAR HEMOGLOBIN 28.8 pg (27.0-31.0); MEAN CORPUSCULAR HGB CONC 32.6 g/dL (32.0-36.0); MEAN CORPUSCULAR VOLUME 88.5 fL (80.0-94.0); MEAN PLATELET VOLUME 8.7 fL (7.4-11.4); RED BLOOD COUNT 4.68 10^6/uL (4.70-6.10); RED CELL DISTRIBUTION WIDTH 12.9 % (12.0-15.0); WHITE BLOOD COUNT 9.8 x10^3/uL (4.8-10.8)
[2021-08-11 07:03] LABS: CALCIUM 7.7 mg/dL (8.5-10.3); CREATININE 0.6 mg/dL (0.6-1.2); POTASSIUM 3.5 mmol/L (3.5-5.0)
[2021-08-11] MEDS: SODIUM CHLORIDE FLUSH 0.9% 10 ML SYRINGE IVP PRN ×5 (08:13→23:43)
--- NOTE | 2021-08-11 08:14 | PROVIDER PROGRESS NOTE ---
Assessment/Plan - Problem List (1) Perforation of sigmoid colon Assessment/Plan: with abscess formation White blood cell count normalized however will continue Zosyn. Pain management with [place] and/or Dilaudid as needed. Patient encouraged to ambulate. Incentive spirometer General surgery plans to contact [facility] in the morning of 08/12/2021 to arrange for drain placement. (2) Diverticulitis Assessment/Plan: with abscess formation White blood cell count normalized however will continue Zosyn. Pain management with [place] and/or Dilaudid as needed. Patient encouraged to ambulate. Incentive spirometer General surgery plans to contact [facility] in the morning of 08/12/2021 to arrange for drain placement. (3) Acute urinary retention Assessment/Plan: Resolved. Likely secondary to inflammation from diverticulitis. Ruiz catheter discontinued (4) Bladder obstruction Assessment/Plan: Resolved. Likely secondary to inflammation from diverticulitis. Ruiz catheter discontinued (5) Small bowel obstruction Assessment/Plan: Resolved. NG tube removed on 08/11/2020. On clear liquid diet. Protonix 40 mg twice daily. Zofran IV for nausea. - Current Meds Current Meds: Current Medications Generic Name Dose Route Start Last Admin Trade Name Freq PRN Reason Stop Dose Admin Diphenhydramine HCl 25 mg 08/06/21 22:44 08/10/21 00:56 Diphenhydramine Inj 50 Mg/Ml Vial IVP 25 mg QPM PRN Administration Insomnia Hydromorphone HCl 1 mg 08/08/21 10:40 08/11/21 06:01 Hydromorphone 1 Mg/Ml Carpuject IVP 1 mg Q2H PRN Administration PAIN Lactated [place] 1,000 mls @ 125 mls/hr 08/06/21 21:00 08/11/21 02:45 Lr IV 125 mls/hr .Q8H BLAS Administration Piperacillin Sod/Tazobactam 100 mls @ 200 mls/hr 08/07/21 00:00 08/11/21 06:39 Sod 3.375 gm/ Sodium Chloride IV Infused Q6HR LBAS Infusion Acetaminophen 100 mls @ 400 mls/hr 08/06/21 21:00 08/10/21 22:36 Ofirmev IV Infused BID BLAS Infusion Ondansetron HCl 4 mg 08/06/21 20:37 08/11/21 05:57 Ondansetron 4 Mg/2 Ml Vial IVP 4 mg Q6HR PRN Administration Nausea / Vomiting Pantoprazole Sodium 40 mg 08/09/21 05:16 08/11/21 06:00 Pantoprazole 40 Mg Vial IV 40 mg Q12H BLAS Administration Phenol/Menthol 2 sprays 08/09/21 06:56 08/09/21 12:03 Phenol Throat [place] 177 Ml MM 2 sprays Q2HR PRN Administration Throat Pain Prochlorperazine Edisylate 10 mg 08/09/21 05:15 08/09/21 05:48 Prochlorperazine 10 Mg/2 Ml Vial IVP 10 mg Q6HR PRN Administration Nausea / Vomiting Sodium Chloride 10 ml 08/06/21 20:37 08/10/21 20:04 Sodium Chloride Flush 0.9% 10 Ml Syringe IVP 10 ml PRN PRN Administration NEEDED PER PROVIDER ORDERS Sodium Chloride 10 ml 08/07/21 01:00 08/11/21 05:57 Sodium Chloride Flush 0.9% 10 Ml Syringe IVP 10 ml 0100,0900,1700 BLAS Administration Throat Lozenges 1 lozenge 08/09/21 11:18 08/09/21 12:03 Benzocaine/Menthol Lozenge MM 1 lozenge Q2HR PRN Administration Throat pain - Lab Result [place] Diagrams: 08/11/21 06:23 08/11/21 06:23 Subjective - Subjective Patient Reports: Other (Denied any significant pain today. Resting comfortably. Reported some blood clots when he had a bowel movement last night and this morning. He is afebrile. Times with clear liquid diet) Objective Vital Signs: Vital Signs - 24 hr 08/10/21 08/10/21 08/10/21 12:33 15:59 20:20 Temperature 36.9 C 36.7 C 36.8 C Heart Rate [ 66 69 Brachial] Heart Rate [ Radial] Respiratory 16 20 18 Rate Blood Pressure 138/77 H 134/75 H 158/83 H [Left Brachial artery] Blood Pressure [Left Radial artery] Blood Pressure [right arm] O2 Saturation 96 98 94 08/11/21 08/11/21 08/11/21 00:41 05:54 06:12 Temperature 36.8 C 36.7 C Heart Rate [ 69 71 Brachial] Heart Rate [ 72 Radial] Respiratory 18 19 Rate Blood Pressure [Left Brachial artery] Blood Pressure 158/78 H 186/92 H [Left Radial artery] Blood Pressure 148/95 H [right arm] O2 Saturation 97 98 Oxygen O2 Source Room air I&O (Last 24 Hrs): Intake and Output Totals x24h 08/09/21 08/10/21 08/11/21 23:59 23:59 23:59 Intake Total 2709.583 3127.083 1755 Output Total 1875 1325 575 Balance 189.051 3741.083 1180 Comments/Notes: General: Alert, Oriented x3, Mild distress HEENT: Atraumatic, PERRLA Neck: Supple, No JVD Neuro: Alert, Oriented Times 3 Cardiovascular: Regular rate, No murmurs Respiratory: Chest non-tender, No respiratory distress, Breath sounds nml Abdomen: Hyper resonant bowel sounds, Soft, Other (mild tenderness to palpation) Extremities: No clubbing, No cyanosis, No edema Skin: No rashes, No breakdown - Results Results: Laboratory Results WBC 9.8 x10^3/uL (4.8-10.8) 08/11/21 06:23 RBC 4.68 10^6/uL (4.70-6.10) L 08/11/21 06:23 Hgb 13.5 g/dL (14.0-18.0) L 08/11/21 06:23 Hct 41.4 % (42.0-52.0) L 08/11/21 06:23 MCV 88.5 fL (80.0-94.0) 08/11/21 06:23 MCH 28.8 pg (27.0-31.0) 08/11/21 06:23 MCHC 32.6 g/dL (32.0-36.0) 08/11/21 06:23 RDW 12.9 % (12.0-15.0) 08/11/21 06:23 Plt Count 381 10^3/uL (130-450) 08/11/21 06:23 MPV 8.7 fL (7.4-11.4) 08/11/21 06:23 Neut # (Auto) 12.6 10^3/uL (1.5-6.6) H 08/08/21 06:51 Lymph # (Auto) 0.5 10^3/uL (1.5-3.5) L 08/08/21 06:51 [place] # (Auto) 0.4 10^3/uL (0.0-1.0) 08/08/21 06:51 Eos # (Auto) 0.0 10^3/uL (0.0-0.7) 08/08/21 06:51 Baso # (Auto) 0.0 10^3/uL (0.0-0.1) 08/08/21 06:51 Absolute Nucleated RBC 0.00 x10^3/uL 08/08/21 06:51 Nucleated RBC % 0.0 /100WBC 08/08/21 06:51 Sodium 138 mmol/L (135-145) 08/11/21 06:23 Potassium 3.5 mmol/L (3.5-5.0) 08/11/21 06:23 Chloride 102 mmol/L (101-111) 08/11/21 06:23 Carbon Dioxide 26 mmol/L (21-32) 08/11/21 06:23 Anion Gap 10.0 (6-13) 08/11/21 06:23 BUN 10 mg/dL (6-20) 08/11/21 06:23 Creatinine 0.6 mg/dL (0.6-1.2) 08/11/21 06:23 Estimated GFR (MDRD) 141 (>89) 08/11/21 06:23 Glucose 108 mg/dL (70-100) H 08/11/21 06:23 Lactic Acid 1.4 mmol/L (0.5-2.2) 08/07/21 06:18 Calcium 7.7 mg/dL (8.5-10.3) L 08/11/21 06:23 Magnesium 1.8 mg/dL (1.7-2.8) 08/07/21 06:18 Total Bilirubin 2.9 mg/dL (0.2-1.0) H 08/08/21 07:28 AST 14 IU/L (10-42) 08/08/21 07:28 ALT 16 IU/L (10-60) 08/08/21 07:28 Alkaline Phosphatase 38 IU/L (42-121) L 08/08/21 07:28 Total Protein 6.0 g/dL (6.7-8.2) L 08/08/21 07:28 Albumin 2.8 g/dL (3.2-5.5) L 08/08/21 07:28 Globulin 3.2 g/dL (2.1-4.2) 08/08/21 07:28 Albumin/Globulin Ratio 0.9 (1.0-2.2) L 08/08/21 07:28 Lipase 22 U/L (22-51) 08/06/21 17:25 Urine Color YELLOW 08/06/21 18:05 Urine Clarity CLEAR (CLEAR) 08/06/21 18:05 Urine pH 6.5 PH (5.0-7.5) 08/06/21 18:05 Ur Specific [place] 1.020 (1.002-1.030) 08/06/21 18:05 Urine Protein NEGATIVE mg/dL (NEGATIVE) 08/06/21 18:05 Urine Glucose (UA) NEGATIVE mg/dL (NEGATIVE) 08/06/21 18:05 Urine Ketones TRACE mg/dL (NEGATIVE) 08/06/21 18:05 Urine Occult Blood NEGATIVE (NEGATIVE) 08/06/21 18:05 Urine Nitrite NEGATIVE (NEGATIVE) 08/06/21 18:05 Urine Bilirubin NEGATIVE (NEGATIVE) 08/06/21 18:05 Urine Urobilinogen 0.2 (NORMAL) E.U./dL (NORMAL) 08/06/21 18:05 Ur Leukocyte Esterase NEGATIVE (NEGATIVE) 08/06/21 18:05 Ur Microscopic Review NOT INDICATED 08/06/21 18:05 Urine Culture Comments NOT INDICATED 08/06/21 18:05 Nasal Adenovirus (PCR) NOT DETECTED 08/06/21 19:30 Nasal B. parapertussis DNA (PCR) NOT DETECTED 08/06/21 19:30 Nasal Coronavir 229E PCR NOT DETECTED 08/06/21 19:30 Nasal Coronavir HKU1 PCR NOT DETECTED 08/06/21 19:30 Nasal Coronavir NL63 PCR NOT DETECTED 08/06/21 19:30 Nasal Coronavir OC43 PCR NOT DETECTED 08/06/21 19:30 Nasal Enterovir/Rhinovir PCR NOT DETECTED 08/06/21 19:30 Nasal Influenza B PCR NOT DETECTED 08/06/21 19:30 Nasal Influenza A PCR NOT DETECTED 08/06/21 19:30 Nasal Parainfluen 1 PCR NOT DETECTED 08/06/21 19:30 Nasal Parainfluen 2 PCR NOT DETECTED 08/06/21 19:30 Nasal Parainfluen 3 PCR NOT DETECTED 08/06/21 19:30 Nasal Parainfluen 4 PCR NOT DETECTED 08/06/21 19:30 Nasal RSV (PCR) NOT DETECTED 08/06/21 19:30 Nasal B.pertussis DNA PCR NOT DETECTED 08/06/21 19:30 Nasal C.pneumoniae (PCR) NOT DETECTED 08/06/21 19:30 Jed Human Metapneumo PCR NOT DETECTED 08/06/21 19:30 Nasal M.pneumoniae (PCR) NOT DETECTED 08/06/21 19:30 Nasal SARS-CoV-2 (PCR) NOT DETECTED 08/06/21 19:30 Sepsis Event Note (H) - Sepsis Criteria Sepsis Criteria: WBC count greater than 12,000 or less than 4000 ABX Reporting Has patient been on IV antibiotics over the past 48 hours?: Yes
--- NOTE | 2021-08-11 08:16 | CT Report ---
PROCEDURE: Abdomen/Pelvis W INDICATIONS: Perforated diverticulitis - poss abscess CONTRAST: IV CONTRAST: Isovue 300 ml: 100 PO CONTRAST: Isovue 300 ml50 TECHNIQUE: After the administration of IV and oral contrast, 5 mm thick sections acquired from the diaphragms to the symphysis. 5 mm thick coronal and sagittal reformats were acquired. For radiation dose reducti on, the following was used: automated exposure control, adjustment of mA and/or kV according to binta ent size. COMPARISON: 08/06/2021 FINDINGS: Image quality: Excellent. ABDOMEN: Lung bases: There is a stable 4 mm right-sided nodule adjacent to the fissure again seen, as on serie s 4 image 2. Small bilateral pleural effusions are seen, which are new compared to the prior examinat ion. Heart size is normal. Solid organs: Stable likely liver cyst are seen. The liver demonstrates normal size and demonstrates no suspicious lesions. The spleen demonstrates normal size and demonstrates no suspicious lesions. Ga llbladder wall does not appear thickened. Biliary system is non dilated. Pancreas enhances normal ly. No adrenal nodules. Kidneys demonstrate normal size and enhancement, without hydronephrosis. Peritoneum and bowel: The oral contrast is seen primarily within the stomach, with a small amount of contrast also seen within the proximal small bowel. There are prominent loops of proximal small bowel seen that measure up to 5.3 cm. The distal small bowel loops are relatively decompressed. No focal t ransition point can be seen. There is a collection of free air or free fluid seen within the pelvis anteriorly that measures 14 x 9 x 7.5 cm. This is seen adjacent to the inflamed, thickened sigmoid colon. Additional free intraperi toneal gas can be seen. Small amount of free intraperitoneal fluid is also seen. No additional significant colonic abnormality is seen. Nodes and vessels: No retroperitoneal or mesenteric adenopathy by size criteria. Aorta and inferior vena cava are normal in size. Miscellaneous: There is a periumbilical hernia seen, which contains fat and gas. Increased body wall edema can be seen. PELVIS: Genitourinary: Bladder wall thickness is normal. Miscellaneous: No inguinal adenopathy. Bilateral fat-containing inguinal hernias are seen. Bones: No suspicious bony lesions. No vertebral body compression fractures. Age-appropriate degene rative changes are seen. IMPRESSION: Clear interval increased size of a gas and fluid collection within the pelvis, which is consistent with worsened perforated diverticulitis. Milder generalized free intraperitoneal gas can also be seen. As well as a small amount of free intra peritoneal fluid. Dilated loops of proximal small bowel are seen, which are likely secondary to regional ileus. A degre e of partial small bowel obstruction is also possible. Interval development of small bilateral pleural effusions. Increased body wall edema can be seen. Incidental note is made of: 4 mm right-sided nodule adjacent to the fissure Apparent liver cysts Periumbilical hernia containing fat and gas Bilateral fat-containing inguinal hernias Reviewed by: Bryant Traore MD on 08/11/2021 7:15 AM [facility] Approved by: Bryant Traore MD on 08/11/2021 7:15 AM [facility] Station ID: [id number]
[2021-08-11] MEDS: ACETAMINOPHEN 1,000 MG/100 ML 100 ML IV SCH ×2 (08:20→21:46)
[2021-08-11] MEDS ORDERED: iohexoL-300 100 ML VIAL IVP ONE (08:26)
[2021-08-11] MEDS ORDERED: IOPAMIDOL-300 50 ML VIAL PO ONE (08:27)
--- NOTE | 2021-08-11 14:37 | PROVIDER PROGRESS NOTE ---
Subjective - General Admit Date: 08/06/21 Procedure Performed: HD #6 - Acute perforated diverticulitis - Review of Systems General: positive: Weakness, Fatigue HEENT: positive: No symptoms Pulmonary: positive: No symptoms Cardiovascular: positive: No symptoms Gastrointestinal: positive: Abdominal pain, Other (Pain is better and nausea has resolved.) Genitourinary: positive: No symptoms All Other Systems: positive: Reviewed and negative - Other Other Information/Narrative: Denies abdominal pain or nausea. Says his abdomen feels very "full" after drinking breakfast and then drinking contrast for the CT. CT shows a 14 cm fluid collection adjacent to the area of inflammed colon Objective - Patient Data Reviewed Vital Signs: Yes Vital Signs: Vital Signs x48h Temp Pulse Resp BP Pulse Ox 08/11/21 12:48 36.7 C 66 16 146/65 H 99 08/11/21 08:43 36.7 C 71 16 133/72 H 95 Intake & Output: Intake and Output Totals x24h 08/09/21 08/10/21 08/11/21 23:59 23:59 23:59 Intake Total 2709.583 3127.083 2955.000 Output Total 1875 1325 875 Balance 290.019 0086.083 2080.000 - Lab Results Lab Results: 08/11/21 06:23 08/11/21 06:23 Other Lab Results: Lab Results x24hrs 08/11/21 08/11/21 Range/Units 06:23 06:23 WBC 9.8 (4.8-10.8) x10^3/uL RBC 4.68 L (4.70-6.10) 10^6/uL Hgb 13.5 L (14.0-18.0) g/dL Hct 41.4 L (42.0-52.0) % MCV 88.5 (80.0-94.0) fL MCH 28.8 (27.0-31.0) pg MCHC 32.6 (32.0-36.0) g/dL RDW 12.9 (12.0-15.0) % Plt Count 381 (130-450) 10^3/uL MPV 8.7 (7.4-11.4) fL Sodium 138 (135-145) mmol/L Potassium 3.5 (3.5-5.0) mmol/L Chloride 102 (101-111) mmol/L Carbon Dioxide 26 (21-32) mmol/L Anion Gap 10.0 (6-13) BUN 10 (6-20) mg/dL Creatinine 0.6 (0.6-1.2) mg/dL Estimated GFR (MDRD) 141 (>89) Glucose 108 H (70-100) mg/dL Calcium 7.7 L (8.5-10.3) mg/dL - Current Medications Current Medications: Current Medications Generic Name Dose Route Start Last Admin Trade Name Freq PRN Reason Stop Dose Admin Diphenhydramine HCl 25 mg 08/06/21 22:44 08/10/21 00:56 Diphenhydramine Inj 50 Mg/Ml Vial IVP 25 mg QPM PRN Administration Insomnia Hydromorphone HCl 1 mg 08/08/21 10:40 08/11/21 08:13 Hydromorphone 1 Mg/Ml Carpuject IVP 1 mg Q2H PRN Administration PAIN Lactated Ringer's 1,000 mls @ 125 mls/hr 08/06/21 21:00 08/11/21 11:49 Lr IV Infused .Q8H BLAS Infusion Piperacillin Sod/Tazobactam 100 mls @ 200 mls/hr 08/07/21 00:00 08/11/21 12:40 Sod 3.375 gm/ Sodium Chloride IV Infused Q6HR BLAS Infusion Acetaminophen 100 mls @ 400 mls/hr 08/06/21 21:00 08/11/21 08:40 Ofirmev IV Infused BID BLAS Infusion Ondansetron HCl 4 mg 08/06/21 20:37 08/11/21 05:57 Ondansetron 4 Mg/2 Ml Vial IVP 4 mg Q6HR PRN Administration Nausea / Vomiting Pantoprazole Sodium 40 mg 08/09/21 05:16 08/11/21 06:00 Pantoprazole 40 Mg Vial IV 40 mg Q12H BLAS Administration Phenol/Menthol 2 sprays 08/09/21 06:56 08/09/21 12:03 Phenol Throat [place] 177 Ml MM 2 sprays Q2HR PRN Administration Throat Pain Prochlorperazine Edisylate 10 mg 08/09/21 05:15 08/09/21 05:48 Prochlorperazine 10 Mg/2 Ml Vial IVP 10 mg Q6HR PRN Administration Nausea / Vomiting Sodium Chloride 10 ml 08/06/21 20:37 08/11/21 12:03 Sodium Chloride Flush 0.9% 10 Ml Syringe IVP 10 ml PRN PRN Administration NEEDED PER PROVIDER ORDERS Sodium Chloride 10 ml 08/07/21 01:00 08/11/21 05:57 Sodium Chloride Flush 0.9% 10 Ml Syringe IVP 10 ml 0100,0900,1700 BLAS Administration Throat Lozenges 1 lozenge 08/09/21 11:18 08/09/21 12:03 Benzocaine/Menthol Lozenge MM 1 lozenge Q2HR PRN Administration Throat pain - Physical Exam Abdomen: positive: Other (Abdomen is more distended today but non tender. Active bowel sounds) Neurologic/Psychiatric: positive: Oriented x3 ABX Reporting Has patient been on IV antibiotics over the past 48 hours?: Yes Impression/Plan - Problem List Problem List: Perforated diverticulitis with abscess 1. Continue antibiotics 2. Continue clear liquids but sparing 3. WBC has normalized and chemistries are encouraging 4. Will contact [facility] interventional radiology in the AM to see if we can arrange for drain placement. May also be able to arrange at [facility]. 5. Bilateral pleural effusions on CT. Encouraged patient to ambulate x4 today. Will get IS to bedside and teach patient to use it.
[2021-08-12] MEDS: SODIUM CHLORIDE FLUSH 0.9% 10 ML SYRINGE IVP SCH ×2 (03:47→04:46)
[2021-08-12] MEDS: HYDROmorphone 1 MG/ML CARPUJECT IVP PRN ×7 (03:47→23:19)
[2021-08-12] MEDS: PANTOPRAZOLE 40 MG VIAL IV SCH ×2 (04:46→18:33)
[2021-08-12] MEDS: PIPERACILLIN/TAZOBACTAM 3.375 GM in SODIUM CHLORIDE 0.9% MINIBAG 100 ML IV SCH ×3 (05:29→18:00)
[2021-08-12 06:30] LABS: HCT - HEMATOCRIT 39.8 % (42.0-52.0); MEAN CORPUSCULAR HEMOGLOBIN 28.6 pg (27.0-31.0); MEAN CORPUSCULAR HGB CONC 32.7 g/dL (32.0-36.0); MEAN CORPUSCULAR VOLUME 87.7 fL (80.0-94.0); MEAN PLATELET VOLUME 8.6 fL (7.4-11.4); RED BLOOD COUNT 4.54 10^6/uL (4.70-6.10); RED CELL DISTRIBUTION WIDTH 12.6 % (12.0-15.0); WHITE BLOOD COUNT 11.1 x10^3/uL (4.8-10.8)
[2021-08-12 06:42] LABS: CALCIUM 7.5 mg/dL (8.5-10.3); CREATININE 0.7 mg/dL (0.6-1.2); POTASSIUM 3.2 mmol/L (3.5-5.0)
[2021-08-12] MEDS: ONDANSETRON 4 MG/2 ML VIAL IVP PRN (07:46)
[2021-08-12] MEDS: SODIUM CHLORIDE FLUSH 0.9% 10 ML SYRINGE IVP PRN ×7 (07:46→21:07)
[2021-08-12] MEDS ORDERED: MAGNESIUM SULFATE 2 GRAM 2 GM/50 ML BAG IV ONE (08:19)
--- NOTE | 2021-08-12 08:30 | PROVIDER PROGRESS NOTE ---
Assessment/Plan - Problem List (1) Perforation of sigmoid colon Assessment/Plan: with abscess formation Patient had percutaneous drainage tube placed by Dr. Baker with interventional radiology here at [facility] on 08/12/2021. It is currently putting out purulent drainage. White blood cell count 11.1 will continue Zosyn. Pain management with [place]no and/or Dilaudid as needed. PPN initiated on 08/12/2021. Patient is also on a clear liquid diet. Patient encouraged to ambulate. Incentive spirometer (2) Diverticulitis Assessment/Plan: with abscess formation Patient had percutaneous drainage tube placed by Dr. Baker with interventional radiology here at [facility] on 08/12/2021. It is currently putting out purulent drainage. White blood cell count 11.1 will continue Zosyn. Pain management with [place] and/or Dilaudid as needed. PPN initiated on 08/12/2021. Patient is also on a clear liquid diet. Patient encouraged to ambulate. Incentive spirometer (3) Acute urinary retention Assessment/Plan: Resolved. Likely secondary to inflammation from diverticulitis. Ruiz catheter discontinued (4) Bladder obstruction Assessment/Plan: Resolved. Likely secondary to inflammation from diverticulitis. Ruiz catheter discontinued (5) Small bowel obstruction Assessment/Plan: Resolved. NG tube removed on 08/11/2020. On clear liquid diet. Protonix 40 mg twice daily. Zofran IV for nausea. (6) Hypokalemia Assessment/Plan: Potassium was 3.2. Administering 40 mEq of potassium chloride over 4 hours IV and magnesium sulfate 2 g IV x1 - Current Meds Current Meds: Current Medications Generic Name Dose Route Start Last Admin Trade Name Freq PRN Reason Stop Dose Admin Diphenhydramine HCl 25 mg 08/06/21 22:44 08/10/21 00:56 Diphenhydramine Inj 50 Mg/Ml Vial IVP 25 mg QPM PRN Administration Insomnia Hydromorphone HCl 1 mg 08/08/21 10:40 08/12/21 07:45 Hydromorphone 1 Mg/Ml Carpuject IVP 1 mg Q2H PRN Administration PAIN Lactated Ringer's 1,000 mls @ 125 mls/hr 08/06/21 21:00 08/12/21 00:00 Lr IV 125 mls/hr .Q8H BLAS Administration Piperacillin Sod/Tazobactam 100 mls @ 200 mls/hr 08/07/21 00:00 08/12/21 05:59 Sod 3.375 gm/ Sodium Chloride IV Infused Q6HR BLAS Infusion Acetaminophen 100 mls @ 400 mls/hr 08/06/21 21:00 08/11/21 22:01 Ofirmev IV Infused BID BLAS Infusion Ondansetron HCl 4 mg 08/06/21 20:37 08/12/21 07:46 Ondansetron 4 Mg/2 Ml Vial IVP 4 mg Q6HR PRN Administration Nausea / Vomiting Pantoprazole Sodium 40 mg 08/09/21 05:16 08/12/21 04:46 Pantoprazole 40 Mg Vial IV 40 mg Q12H BLAS Administration Phenol/Menthol 2 sprays 08/09/21 06:56 08/09/21 12:03 Phenol Throat [place] 177 Ml MM 2 sprays Q2HR PRN Administration Throat Pain Prochlorperazine Edisylate 10 mg 08/09/21 05:15 08/09/21 05:48 Prochlorperazine 10 Mg/2 Ml Vial IVP 10 mg Q6HR PRN Administration Nausea / Vomiting Sodium Chloride 10 ml 08/06/21 20:37 08/12/21 07:46 Sodium Chloride Flush 0.9% 10 Ml Syringe IVP 10 ml PRN PRN Administration NEEDED PER PROVIDER ORDERS Sodium Chloride 10 ml 08/07/21 01:00 08/12/21 04:46 Sodium Chloride Flush 0.9% 10 Ml Syringe IVP 10 ml 0100,0900,1700 BLAS Administration Throat Lozenges 1 lozenge 08/09/21 11:18 08/09/21 12:03 Benzocaine/Menthol Lozenge MM 1 lozenge Q2HR PRN Administration Throat pain - Lab Result Fish Bone Diagrams: 08/12/21 05:55 08/12/21 05:55 - Additional Planning My Orders: My Active Orders 08/12/21 08:19 Magnesium Sulfate 2 Gram [Magnesium Sulfate] 2 gm in 50 ml IV ONCE 08/12/21 09:00 Potassium Chlor 10 Meq/100 ml [Potassium Chloride] 10 meq in 100 ml IV Q1H Subjective - Subjective Patient Reports: Other (Resting comfortably in bed at time of exam. Had just returned from having a percutaneous drainage tube placed. Denied any complaints.) Objective Vital Signs: Vital Signs - 24 hr 08/11/21 08/11/21 08/11/21 08:43 12:48 16:51 Temperature 36.7 C 36.7 C 36.7 C Heart Rate [ 71 66 71 Brachial] Respiratory 16 16 18 Rate Blood Pressure 133/72 H 146/65 H 150/78 H [Left Brachial artery] Blood Pressure [right arm] O2 Saturation 95 99 97 08/11/21 08/11/21 08/12/21 20:18 23:55 04:41 Temperature 36.9 C 36.6 C 36.6 C Heart Rate [ 69 70 70 Brachial] Respiratory 18 18 20 Rate Blood Pressure 156/84 H 137/78 H [Left Brachial artery] Blood Pressure 145/74 H [right arm] O2 Saturation 96 97 96 08/12/21 07:50 Temperature 36.4 C L Heart Rate [ 69 Brachial] Respiratory 20 Rate Blood Pressure [Left Brachial artery] Blood Pressure 156/78 H [right arm] O2 Saturation 95 Oxygen O2 Source Room air I&O (Last 24 Hrs): Intake and Output Totals x24h 08/10/21 08/11/21 08/12/21 23:59 23:59 23:59 Intake Total 3127.083 4155.000 200 Output Total 1325 1575 350 Balance 2643.709 8932.000 -150 Comments/Notes: General: Alert, Oriented x3, Mild distress HEENT: Atraumatic, PERRLA Neck: Supple, No JVD Neuro: Alert, Oriented Times 3 Cardiovascular: Regular rate, No murmurs Respiratory: Chest non-tender, No respiratory distress, Breath sounds nml Abdomen: Hyper resonant bowel sounds, Soft, Other (mild tenderness to palpation) Extremities: No clubbing, No cyanosis, No edema Skin: No rashes, No breakdown - Results Results: Laboratory Results WBC 11.1 x10^3/uL (4.8-10.8) H 08/12/21 05:55 RBC 4.54 10^6/uL (4.70-6.10) L 08/12/21 05:55 Hgb 13.0 g/dL (14.0-18.0) L 08/12/21 05:55 Hct 39.8 % (42.0-52.0) L 08/12/21 05:55 MCV 87.7 fL (80.0-94.0) 08/12/21 05:55 MCH 28.6 pg (27.0-31.0) 08/12/21 05:55 MCHC 32.7 g/dL (32.0-36.0) 08/12/21 05:55 RDW 12.6 % (12.0-15.0) 08/12/21 05:55 Plt Count 372 10^3/uL (130-450) 08/12/21 05:55 MPV 8.6 fL (7.4-11.4) 08/12/21 05:55 Neut # (Auto) 12.6 10^3/uL (1.5-6.6) H 08/08/21 06:51 Lymph # (Auto) 0.5 10^3/uL (1.5-3.5) L 08/08/21 06:51 Izard # (Auto) 0.4 10^3/uL (0.0-1.0) 08/08/21 06:51 Eos # (Auto) 0.0 10^3/uL (0.0-0.7) 08/08/21 06:51 Baso # (Auto) 0.0 10^3/uL (0.0-0.1) 08/08/21 06:51 Absolute Nucleated RBC 0.00 x10^3/uL 08/08/21 06:51 Nucleated RBC % 0.0 /100WBC 08/08/21 06:51 Sodium 135 mmol/L (135-145) 08/12/21 05:55 Potassium 3.2 mmol/L (3.5-5.0) L 08/12/21 05:55 Chloride 98 mmol/L (101-111) L 08/12/21 05:55 Carbon Dioxide 26 mmol/L (21-32) 08/12/21 05:55 Anion Gap 11.0 (6-13) 08/12/21 05:55 BUN 9 mg/dL (6-20) 08/12/21 05:55 Creatinine 0.7 mg/dL (0.6-1.2) 08/12/21 05:55 Estimated GFR (MDRD) 118 (>89) 08/12/21 05:55 Glucose 99 mg/dL (70-100) 08/12/21 05:55 Lactic Acid 1.4 mmol/L (0.5-2.2) 08/07/21 06:18 Calcium 7.5 mg/dL (8.5-10.3) L 08/12/21 05:55 Magnesium 1.8 mg/dL (1.7-2.8) 08/07/21 06:18 Total Bilirubin 2.9 mg/dL (0.2-1.0) H 08/08/21 07:28 AST 14 IU/L (10-42) 08/08/21 07:28 ALT 16 IU/L (10-60) 08/08/21 07:28 Alkaline Phosphatase 38 IU/L (42-121) L 08/08/21 07:28 Total Protein 6.0 g/dL (6.7-8.2) L 08/08/21 07:28 Albumin 2.8 g/dL (3.2-5.5) L 08/08/21 07:28 Globulin 3.2 g/dL (2.1-4.2) 08/08/21 07:28 Albumin/Globulin Ratio 0.9 (1.0-2.2) L 08/08/21 07:28 Lipase 22 U/L (22-51) 08/06/21 17:25 Urine Color YELLOW 08/06/21 18:05 Urine Clarity CLEAR (CLEAR) 08/06/21 18:05 Urine pH 6.5 PH (5.0-7.5) 08/06/21 18:05 Ur Specific [place] 1.020 (1.002-1.030) 08/06/21 18:05 Urine Protein NEGATIVE mg/dL (NEGATIVE) 08/06/21 18:05 Urine Glucose (UA) NEGATIVE mg/dL (NEGATIVE) 08/06/21 18:05 Urine Ketones TRACE mg/dL (NEGATIVE) 08/06/21 18:05 Urine Occult Blood NEGATIVE (NEGATIVE) 08/06/21 18:05 Urine Nitrite NEGATIVE (NEGATIVE) 08/06/21 18:05 Urine Bilirubin NEGATIVE (NEGATIVE) 08/06/21 18:05 Urine Urobilinogen 0.2 (NORMAL) E.U./dL (NORMAL) 08/06/21 18:05 Ur Leukocyte Esterase NEGATIVE (NEGATIVE) 08/06/21 18:05 Ur Microscopic Review NOT INDICATED 08/06/21 18:05 Urine Culture Comments NOT INDICATED 08/06/21 18:05 Nasal Adenovirus (PCR) NOT DETECTED 08/06/21 19:30 Nasal B. parapertussis DNA (PCR) NOT DETECTED 08/06/21 19:30 Nasal Coronavir 229E PCR NOT DETECTED 08/06/21 19:30 Nasal Coronavir HKU1 PCR NOT DETECTED 08/06/21 19:30 Nasal Coronavir NL63 PCR NOT DETECTED 08/06/21 19:30 Nasal Coronavir OC43 PCR NOT DETECTED 08/06/21 19:30 Nasal Enterovir/Rhinovir PCR NOT DETECTED 08/06/21 19:30 Nasal Influenza B PCR NOT DETECTED 08/06/21 19:30 Nasal Influenza A PCR NOT DETECTED 08/06/21 19:30 Nasal Parainfluen 1 PCR NOT DETECTED 08/06/21 19:30 Nasal Parainfluen 2 PCR NOT DETECTED 08/06/21 19:30 Nasal Parainfluen 3 PCR NOT DETECTED 08/06/21 19:30 Nasal Parainfluen 4 PCR NOT DETECTED 08/06/21 19:30 Nasal RSV (PCR) NOT DETECTED 08/06/21 19:30 Nasal B.pertussis DNA PCR NOT DETECTED 08/06/21 19:30 Nasal C.pneumoniae (PCR) NOT DETECTED 08/06/21 19:30 Jed Human Metapneumo PCR NOT DETECTED 08/06/21 19:30 Nasal M.pneumoniae (PCR) NOT DETECTED 08/06/21 19:30 Nasal SARS-CoV-2 (PCR) NOT DETECTED 08/06/21 19:30 Sepsis Event Note (H) - Sepsis Criteria Sepsis Criteria: WBC count greater than 12,000 or less than 4000 ABX Reporting Has patient been on IV antibiotics over the past 48 hours?: Yes
--- NOTE | 2021-08-12 09:27 | PROVIDER PROGRESS NOTE ---
Subjective - General Admit Date: 08/06/21 Procedure Performed: HD #6 - Acute perforated diverticulitis - Review of Systems General: positive: Weakness, Fatigue HEENT: positive: No symptoms Pulmonary: positive: No symptoms Cardiovascular: positive: No symptoms Gastrointestinal: positive: Abdominal pain, Other (Pain is better and nausea has resolved.) Genitourinary: positive: No symptoms All Other Systems: positive: Reviewed and negative - Other Other Information/Narrative: Passed multiple mucousy stools with some blood tinge. Some flatus as well. Pain is well controlled. Afebrile, no nuasea Objective - Patient Data Reviewed Vital Signs: Yes Vital Signs: Vital Signs x48h Temp Pulse Resp BP BP Pulse Ox 08/12/21 07:50 36.4 C L 69 20 156/78 H 95 08/12/21 04:41 36.6 C 70 20 137/78 H 96 Intake & Output: Intake and Output Totals x24h 08/10/21 08/11/21 08/12/21 23:59 23:59 23:59 Intake Total 3127.083 4155.000 200 Output Total 1325 1575 350 Balance 6117.508 3479.000 -150 - Lab Results Lab Results: 08/12/21 05:55 08/12/21 05:55 Other Lab Results: Lab Results x24hrs 08/12/21 08/12/21 Range/Units 05:55 05:55 WBC 11.1 H (4.8-10.8) x10^3/uL RBC 4.54 L (4.70-6.10) 10^6/uL Hgb 13.0 L (14.0-18.0) g/dL Hct 39.8 L (42.0-52.0) % MCV 87.7 (80.0-94.0) fL MCH 28.6 (27.0-31.0) pg MCHC 32.7 (32.0-36.0) g/dL RDW 12.6 (12.0-15.0) % Plt Count 372 (130-450) 10^3/uL MPV 8.6 (7.4-11.4) fL Sodium 135 (135-145) mmol/L Potassium 3.2 L (3.5-5.0) mmol/L Chloride 98 L (101-111) mmol/L Carbon Dioxide 26 (21-32) mmol/L Anion Gap 11.0 (6-13) BUN 9 (6-20) mg/dL Creatinine 0.7 (0.6-1.2) mg/dL Estimated GFR (MDRD) 118 (>89) Glucose 99 (70-100) mg/dL Calcium 7.5 L (8.5-10.3) mg/dL - Imaging Results Radiology Imaging: positive: Final report received Imaging Results Comments: Fluid collection in the pelvis. - Current Medications Current Medications: Current Medications Generic Name Dose Route Start Last Admin Trade Name Freq PRN Reason Stop Dose Admin Diphenhydramine HCl 25 mg 08/06/21 22:44 08/10/21 00:56 Diphenhydramine Inj 50 Mg/Ml Vial IVP 25 mg QPM PRN Administration Insomnia Hydromorphone HCl 1 mg 08/08/21 10:40 08/12/21 07:45 Hydromorphone 1 Mg/Ml Carpuject IVP 1 mg Q2H PRN Administration PAIN Lactated Ringer's 1,000 mls @ 125 mls/hr 08/06/21 21:00 08/12/21 00:00 Lr IV 125 mls/hr .Q8H BLAS Administration Piperacillin Sod/Tazobactam 100 mls @ 200 mls/hr 08/07/21 00:00 08/12/21 05:59 Sod 3.375 gm/ Sodium Chloride IV Infused Q6HR BLAS Infusion Acetaminophen 100 mls @ 400 mls/hr 08/06/21 21:00 08/11/21 22:01 Ofirmev IV Infused BID BLAS Infusion Ondansetron HCl 4 mg 08/06/21 20:37 08/12/21 07:46 Ondansetron 4 Mg/2 Ml Vial IVP 4 mg Q6HR PRN Administration Nausea / Vomiting Pantoprazole Sodium 40 mg 08/09/21 05:16 08/12/21 04:46 Pantoprazole 40 Mg Vial IV 40 mg Q12H BLAS Administration Phenol/Menthol 2 sprays 08/09/21 06:56 08/09/21 12:03 Phenol Throat [place] 177 Ml MM 2 sprays Q2HR PRN Administration Throat Pain Prochlorperazine Edisylate 10 mg 08/09/21 05:15 08/09/21 05:48 Prochlorperazine 10 Mg/2 Ml Vial IVP 10 mg Q6HR PRN Administration Nausea / Vomiting Sodium Chloride 10 ml 08/06/21 20:37 08/12/21 07:46 Sodium Chloride Flush 0.9% 10 Ml Syringe IVP 10 ml PRN PRN Administration NEEDED PER PROVIDER ORDERS Sodium Chloride 10 ml 08/07/21 01:00 08/12/21 04:46 Sodium Chloride Flush 0.9% 10 Ml Syringe IVP 10 ml 0100,0900,1700 BLAS Administration Throat Lozenges 1 lozenge 08/09/21 11:18 08/09/21 12:03 Benzocaine/Menthol Lozenge MM 1 lozenge Q2HR PRN Administration Throat pain - Physical Exam General Appearance: positive: No acute distress, Alert Eyes Bilateral: positive: Normal inspection ENT: positive: ENT inspection nml, Pharynx nml Neck: positive: Nml inspection Respiratory: positive: No respiratory distress Cardiovascular: positive: Regular rate & rhythm Abdomen: positive: Nml bowel sounds, Tenderness. negative: Guarding, Rebound Back: positive: Nml inspection Skin: positive: Color nml Neurologic/Psychiatric: positive: Oriented x3 ABX Reporting Has patient been on IV antibiotics over the past 48 hours?: Yes Impression/Plan - Problem List Problem List: 1. Perforated diverticulitis with abscess - Dr. Walker is planning drainage today - Will culture the fluid 2. WBC up a little. Should improve after drainage but willl follow carefully and adjust antibiotics as needed 3. Pain - well controlled - no new issues 4. FEN- tolerating minimal clears. Ileus should resolve completely after drainage so that we can advance diet - if not, we'll need to consider TPN
[2021-08-12] MEDS: ACETAMINOPHEN 1,000 MG/100 ML 100 ML IV SCH ×2 (09:32→21:15)
[2021-08-12] MEDS: LACTATED RINGERS 1,000 ML IV SCH ×4 (10:14→19:03)
[2021-08-12] MEDS ORDERED: lidocaine 1% 20 ML MDV ONE (10:35)
[2021-08-12] MEDS ORDERED: MIDAZOLAM 2 MG/2 ML VIAL ONE (11:23)
[2021-08-12] MEDS ORDERED: fentaNYL 100 MCG/2 ML VIAL ONE (11:24)
[2021-08-12] MEDS: POTASSIUM CHLOR 10 MEQ/100 ML 10 MEQ/100 ML BAG IV SCH ×4 (13:36→18:30)
--- NOTE | 2021-08-12 15:54 | CT Report ---
PROCEDURE: RETROPERITONEAL ABSC DRAIN Sedation analgesia for 15 minutes. INDICATIONS: FLUID RETENTION TECHNIQUE: The indications, alternatives, benefits, risks, and possible complications of the procedure were comm unicated to the patient. Informed written consent from the patient was obtained and placed in the art. Continuous EKG and hemodynamic monitoring was started by trained personnel. Conscious sedation was administered. For radiation dose reduction, the following was used: automated exposure control, adjustment of mA and/or kV according to patient size. The patient was brought to the CT suite and manager placement spiral CT imaging was performed with localization g rid. The appropriate site for percutaneous access to the drainage target was marked, was prepped and draped sterilely, and was infused with local anaesthesia. Under CT guidance, an 18-gauge Chiba need le was advanced into the fluid collection. An 035 Amplatz is advanced, over which 8 and 10 Azeri ser ial dilators were placed. 10 [place] pigtail catheter was placed. Patient tolerated the procedure with out difficulty. Approximately 10 cc of purulent fluid was aspirated and sent to the laboratory per re questing physician orders. COMPARISON: CT abdomen pelvis 08/11/2021 FINDINGS: Right lower quadrant diverticular abscess is identified unchanged compared to prior exam.. IMPRESSION: Right lower quadrant drain placement as above. Reviewed by: Kate Ansari MD on 08/12/2021 3:53 PM PST Approved by: Kate Ansari MD on 08/12/2021 3:53 PM PST Station ID: [id number]
[2021-08-12] MEDS: PPN (CLINIMIX E 4.25/5) 2,000 ML with MULTIVITAMIN 10 ML, TRACE ELEMENTS 1 ML IV SCH ×3 (19:03)
[2021-08-13] MEDS: PIPERACILLIN/TAZOBACTAM 3.375 GM in SODIUM CHLORIDE 0.9% MINIBAG 100 ML IV SCH ×4 (00:22→17:53)
[2021-08-13] MEDS: SODIUM CHLORIDE FLUSH 0.9% 10 ML SYRINGE IVP SCH ×3 (01:20→17:56)
[2021-08-13] MEDS: HYDROmorphone 1 MG/ML CARPUJECT IVP PRN ×5 (01:33→14:57)
[2021-08-13] MEDS: PANTOPRAZOLE 40 MG VIAL IV SCH (05:29)
[2021-08-13] MEDS: ONDANSETRON 4 MG/2 ML VIAL IVP PRN (06:28)
[2021-08-13 06:51] LABS: HCT - HEMATOCRIT 41.7 % (42.0-52.0); HGB - HEMOGLOBIN 13.6 g/dL (14.0-18.0); MEAN CORPUSCULAR HEMOGLOBIN 28.6 pg (27.0-31.0); MEAN CORPUSCULAR HGB CONC 32.6 g/dL (32.0-36.0); MEAN CORPUSCULAR VOLUME 87.8 fL (80.0-94.0); MEAN PLATELET VOLUME 8.3 fL (7.4-11.4); RED BLOOD COUNT 4.75 10^6/uL (4.70-6.10); RED CELL DISTRIBUTION WIDTH 12.7 % (12.0-15.0); WHITE BLOOD COUNT 11.1 x10^3/uL (4.8-10.8)
[2021-08-13 07:10] LABS: ALBUMIN 2.5 g/dL (3.2-5.5); ALBUMIN/GLOBULIN RATIO 0.7 (1.0-2.2); BILIRUBIN,TOTAL 1.5 mg/dL (0.2-1.0); CALCIUM 7.6 mg/dL (8.5-10.3); CREATININE 0.6 mg/dL (0.6-1.2); MAGNESIUM 2.6 mg/dL (1.7-2.8); PHOSPHORUS 2.7 mg/dL (2.5-4.6); POTASSIUM 3.8 mmol/L (3.5-5.0); TOTAL PROTEIN 6.1 g/dL (6.7-8.2)
[2021-08-13] MEDS: LACTATED RINGERS 1,000 ML IV SCH (07:15)
[2021-08-13] MEDS: ACETAMINOPHEN 1,000 MG/100 ML 100 ML IV SCH (08:37)
[2021-08-13] MEDS: SODIUM CHLORIDE FLUSH 0.9% 10 ML SYRINGE IVP PRN ×3 (11:00→14:57)
[2021-08-13] MEDS ORDERED: LACTATED RINGERS 1,000 ML IV SCH (13:57)
--- NOTE | 2021-08-13 14:01 | PROVIDER PROGRESS NOTE ---
Subjective - General Admit Date: 08/06/21 Procedure Performed: HD #6 - Acute perforated diverticulitis - Review of Systems General: positive: Weakness, Fatigue HEENT: positive: No symptoms Pulmonary: positive: No symptoms Cardiovascular: positive: No symptoms Gastrointestinal: positive: Abdominal pain, Other (Pain is better and nausea has resolved.) Genitourinary: positive: No symptoms All Other Systems: positive: Reviewed and negative - Other Other Information/Narrative: Feeling a little better today. Pain is better controlled. He did require Dilaudid several times throughout the night but he says his abdomen is less sore today. He has continued to pass gas and have bowel movements. He is quite hungry.Still awaiting culture results Objective - Patient Data Reviewed Vital Signs: Yes Vital Signs: Vital Signs x48h Temp Pulse Pulse Pulse Resp BP BP 08/13/21 12:57 36.7 C 77 22 135/64 H 08/13/21 08:28 77 16 08/13/21 08:25 36.6 C 73 20 145/86 H 08/13/21 06:31 36.7 C 68 18 134/70 H Pulse Ox 08/13/21 12:57 97 08/13/21 08:28 93 08/13/21 08:25 95 08/13/21 06:31 93 Weight: Weight 08/11/21 08/12/21 08/13/21 23:59 23:59 23:59 Weight (kg) 99.79 kg 104 kg Intake & Output: Intake and Output Totals x24h 08/11/21 08/12/21 08/13/21 23:59 23:59 23:59 Intake Total 4155.000 2850.000 1471.0 Output Total 1575 2075 3292 Balance 2580.000 775.000 -1821.0 - Lab Results Lab Results: 08/13/21 06:35 08/13/21 06:35 Other Lab Results: Lab Results x24hrs 08/13/21 08/13/21 08/13/21 Range/Units 11:41 07:56 06:35 WBC (4.8-10.8) x10^3/uL RBC (4.70-6.10) 10^6/uL Hgb (14.0-18.0) g/dL Hct (42.0-52.0) % MCV (80.0-94.0) fL MCH (27.0-31.0) pg MCHC (32.0-36.0) g/dL RDW (12.0-15.0) % Plt Count (130-450) 10^3/uL MPV (7.4-11.4) fL Sodium 137 (135-145) mmol/L Potassium 3.8 (3.5-5.0) mmol/L Chloride 99 L (101-111) mmol/L Carbon Dioxide 29 (21-32) mmol/L Anion Gap 9.0 (6-13) BUN 9 (6-20) mg/dL Creatinine 0.6 (0.6-1.2) mg/dL Estimated GFR (MDRD) 141 (>89) Glucose 143 H (70-100) mg/dL POC Whole Bld Glucose 143 H 140 H (70 - 100) mg/dL Calcium 7.6 L (8.5-10.3) mg/dL Phosphorus 2.7 (2.5-4.6) mg/dL Magnesium 2.6 (1.7-2.8) mg/dL Total Bilirubin 1.5 H (0.2-1.0) mg/dL AST 33 (10-42) IU/L ALT 33 (10-60) IU/L Alkaline Phosphatase 82 (42-121) IU/L Total Protein 6.1 L (6.7-8.2) g/dL Albumin 2.5 L (3.2-5.5) g/dL Globulin 3.6 (2.1-4.2) g/dL Albumin/Globulin Ratio 0.7 L (1.0-2.2) Prealbumin 10 L (18-45) mg/dL 08/13/21 08/12/21 08/12/21 Range/Units 06:35 21:11 17:00 WBC 11.1 H (4.8-10.8) x10^3/uL RBC 4.75 (4.70-6.10) 10^6/uL Hgb 13.6 L (14.0-18.0) g/dL Hct 41.7 L (42.0-52.0) % MCV 87.8 (80.0-94.0) fL MCH 28.6 (27.0-31.0) pg MCHC 32.6 (32.0-36.0) g/dL RDW 12.7 (12.0-15.0) % Plt Count 449 (130-450) 10^3/uL MPV 8.3 (7.4-11.4) fL Sodium (135-145) mmol/L Potassium (3.5-5.0) mmol/L Chloride (101-111) mmol/L Carbon Dioxide (21-32) mmol/L Anion Gap (6-13) BUN (6-20) mg/dL Creatinine (0.6-1.2) mg/dL Estimated GFR (MDRD) (>89) Glucose (70-100) mg/dL POC Whole Bld Glucose 115 H 93 (70 - 100) mg/dL Calcium (8.5-10.3) mg/dL Phosphorus (2.5-4.6) mg/dL Magnesium (1.7-2.8) mg/dL Total Bilirubin (0.2-1.0) mg/dL AST (10-42) IU/L ALT (10-60) IU/L Alkaline Phosphatase (42-121) IU/L Total Protein (6.7-8.2) g/dL Albumin (3.2-5.5) g/dL Globulin (2.1-4.2) g/dL Albumin/Globulin Ratio (1.0-2.2) Prealbumin (18-45) mg/dL - Current Medications Current Medications: Current Medications Generic Name Dose Route Start Last Admin Trade Name Freq PRN Reason Stop Dose Admin Diphenhydramine HCl 25 mg 08/06/21 22:44 08/10/21 00:56 Diphenhydramine Inj 50 Mg/Ml Vial IVP 25 mg QPM PRN Administration Insomnia Hydromorphone HCl 1 mg 08/08/21 10:40 08/13/21 11:00 Hydromorphone 1 Mg/Ml Carpuject IVP 1 mg Q2H PRN Administration PAIN Piperacillin Sod/Tazobactam 100 mls @ 200 mls/hr 08/07/21 00:00 08/13/21 12:35 Sod 3.375 gm/ Sodium Chloride IV Infused Q6HR BLAS Infusion Acetaminophen 100 mls @ 400 mls/hr 08/06/21 21:00 08/13/21 08:58 Ofirmev IV Infused BID BLAS Infusion Multivitamins 10 ml/ TRACE 2,011 mls @ 83 mls/hr 08/12/21 19:00 08/12/21 19:03 ELEMENTS 1 ml/ Amino Acids/ IV 83 mls/hr Electrolytes/Dextrose Q24H BLAS Administration Protocol Ondansetron HCl 4 mg 08/06/21 20:37 08/13/21 06:28 Ondansetron 4 Mg/2 Ml Vial IVP 4 mg Q6HR PRN Administration Nausea / Vomiting Pantoprazole Sodium 40 mg 08/09/21 05:16 08/13/21 05:29 Pantoprazole 40 Mg Vial IV 40 mg Q12H BLAS Administration Phenol/Menthol 2 sprays 08/09/21 06:56 08/09/21 12:03 Phenol Throat [place] 177 Ml MM 2 sprays Q2HR PRN Administration Throat Pain Prochlorperazine Edisylate 10 mg 08/09/21 05:15 08/09/21 05:48 Prochlorperazine 10 Mg/2 Ml Vial IVP 10 mg Q6HR PRN Administration Nausea / Vomiting Sodium Chloride 10 ml 08/06/21 20:37 08/13/21 11:55 Sodium Chloride Flush 0.9% 10 Ml Syringe IVP 10 ml PRN PRN Administration NEEDED PER PROVIDER ORDERS Sodium Chloride 10 ml 08/07/21 01:00 08/13/21 09:05 Sodium Chloride Flush 0.9% 10 Ml Syringe IVP Not Given 0100,0900,1700 [facility] Throat Lozenges 1 lozenge 08/09/21 11:18 08/09/21 12:03 Benzocaine/Menthol Lozenge MM 1 lozenge Q2HR PRN Administration Throat pain - Physical Exam General Appearance: positive: No acute distress, Alert Eyes Bilateral: positive: PERRL, EOMI Respiratory: positive: No respiratory distress, Breath sounds nml Cardiovascular: positive: Regular rate & rhythm Abdomen: positive: No distention, Tenderness, Guarding, Other (Drain continues to produce purulent fluid but it is much thinner than previously.). negative: Rebound ABX Reporting Has patient been on IV antibiotics over the past 48 hours?: Yes Impression/Plan - Problem List Problem List: Perforated diverticulitis with large pelvic abscess now status post peritoneal drainage catheter and continues to improve. 1. Continue antibiotics as we await culture results 2. Advance to soft diet 3. Can add oxycodone with a stool softener as long as he is tolerating his regular diet.
[2021-08-13] MEDS ORDERED: PANTOPRAZOLE 40 MG TABLET PO SCH (15:00)
[2021-08-13] MEDS: oxyCODONE 5 MG TABLET PO PRN ×2 (17:23→21:27)
[2021-08-13] MEDS: ACETAMINOPHEN 325 MG TABLET PO PRN (17:24)
[2021-08-13] MEDS: PPN (CLINIMIX E 4.25/5) 2,000 ML with MULTIVITAMIN 10 ML, TRACE ELEMENTS 1 ML IV SCH ×3 (19:26)
[2021-08-14] MEDS: HYDROmorphone 1 MG/ML CARPUJECT IVP PRN ×2 (00:23→08:43)
[2021-08-14] MEDS: oxyCODONE 5 MG TABLET PO PRN ×5 (03:11→20:43)
[2021-08-14] MEDS: PIPERACILLIN/TAZOBACTAM 3.375 GM in SODIUM CHLORIDE 0.9% MINIBAG 100 ML IV SCH ×5 (03:17→23:48)
[2021-08-14] MEDS: SODIUM CHLORIDE FLUSH 0.9% 10 ML SYRINGE IVP SCH ×4 (03:19→23:53)
[2021-08-14 06:20] LABS: BASOPHILS % (AUTO) 0.5 %; EOSINOPHILS % (AUTO) 4.5 %; HCT - HEMATOCRIT 38.9 % (42.0-52.0); HGB - HEMOGLOBIN 12.7 g/dL (14.0-18.0); LYMPHOCYTES % (AUTO) 10.4 %; MEAN CORPUSCULAR HEMOGLOBIN 28.8 pg (27.0-31.0); MEAN CORPUSCULAR HGB CONC 32.6 g/dL (32.0-36.0); MEAN CORPUSCULAR VOLUME 88.2 fL (80.0-94.0); MEAN PLATELET VOLUME 8.4 fL (7.4-11.4); MONOCYTES % (AUTO) 6.3 %; NEUTROPHILS % (AUTO) 72.8 %; PLT - PLATELET COUNT 424 10^3/uL (130-450); RED BLOOD COUNT 4.41 10^6/uL (4.70-6.10); RED CELL DISTRIBUTION WIDTH 12.9 % (12.0-15.0); WHITE BLOOD COUNT 10.7 x10^3/uL (4.8-10.8)
[2021-08-14 06:26] LABS: ABNORMAL LYMPHS % (MANUAL) 0 %
[2021-08-14 06:46] LABS: BAND NEUTROPHILS % (MANUAL) 3 %; DIFFERENTIAL COMMENT MANUAL DIFFERENTIAL; LYMPHOCYTES # (MANUAL) 1.1 10^3/uL (1.5-3.5); LYMPHOCYTES % (MANUAL) 10 %; MONOCYTES # (MANUAL) 0.6 10^3/uL (0.0-1.0); MYELOCYTES % (MANUAL) 1 %; NEUTROPHILS # (MANUAL) 8.9 10^3/uL (1.5-6.6); PLATELET ESTIMATE, MANUAL NORMAL (130-450,000) (NORMAL); RBC MORPHOLOGY (MULTIPLE) NORMAL APPEARANCE (NORMAL)
[2021-08-14] MEDS: PANTOPRAZOLE 40 MG TABLET PO SCH (06:46)
[2021-08-14 08:08] LABS: ALBUMIN 2.4 g/dL (3.2-5.5); ALBUMIN/GLOBULIN RATIO 0.7 (1.0-2.2); BILIRUBIN,TOTAL 0.8 mg/dL (0.2-1.0); CALCIUM 7.5 mg/dL (8.5-10.3); CREATININE 0.5 mg/dL (0.6-1.2); POTASSIUM 3.6 mmol/L (3.5-5.0); TOTAL PROTEIN 5.8 g/dL (6.7-8.2)
--- NOTE | 2021-08-14 09:33 | PROVIDER PROGRESS NOTE ---
Subjective - General Admit Date: 08/06/21 Procedure Performed: HD #9 - Acute perforated diverticulitis - Review of Systems Drain Output Description: Clearing, more serous with minimal cloudiness General: positive: Weakness, Fatigue HEENT: positive: No symptoms Pulmonary: positive: No symptoms Cardiovascular: positive: No symptoms Gastrointestinal: positive: Abdominal pain, Other (No nausea and eating well. Trying to stick to Oxycodone and avoid Hydromorphone) Genitourinary: positive: No symptoms All Other Systems: positive: Reviewed and negative - Other Other Information/Narrative: Naren is in good spirits today. He reports he is feeling better. He still has some significant discomfort at the drain site but it is improving. He has not had any more nausea and continues to pass a lot of flatus and have small bowel movements. He is trying to stay to the oxycodone that was started last evening and avoid hydromorphone in an effort to be able to go home with controlled pain. He does still have hydromorphone for breakthrough.He is anxious to get back to work as well. 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 Objective - Patient Data Reviewed Vital Signs: Yes Vital Signs: Vital Signs x48h Temp Pulse Resp BP BP Pulse Ox 08/14/21 08:11 36.7 C 71 20 143/78 H 96 08/14/21 06:21 36.6 C 75 18 148/82 H 98 Weight: Weight 08/12/21 08/13/21 08/14/21 23:59 23:59 23:59 Weight (kg) 99.79 kg 104 kg Intake & Output: Intake and Output Totals x24h 08/12/21 08/13/21 08/14/21 23:59 23:59 23:59 Intake Total 2850.000 4672.717 1040.6 Output Total 2075 4787 625 Balance 775.000 -114.283 415.6 - Lab Results Lab Results: 08/14/21 05:58 08/14/21 05:58 Other Lab Results: Lab Results x24hrs 08/14/21 08/14/21 08/14/21 Range/Units 07:21 05:58 05:58 WBC 10.7 (4.8-10.8) x10^3/uL RBC 4.41 L (4.70-6.10) 10^6/uL Hgb 12.7 L (14.0-18.0) g/dL Hct 38.9 L (42.0-52.0) % MCV 88.2 (80.0-94.0) fL MCH 28.8 (27.0-31.0) pg MCHC 32.6 (32.0-36.0) g/dL RDW 12.9 (12.0-15.0) % Plt Count 424 (130-450) 10^3/uL MPV 8.4 (7.4-11.4) fL Neut # (Auto) Not Reportable Lymph # (Auto) Not Reportable [place] # (Auto) Not Reportable Eos # (Auto) Not Reportable Baso # (Auto) Not Reportable Absolute Nucleated RBC Not Reportable Total Counted 100 Band Neuts % (Manual) 3 (0 - 10) % Abnorm Lymph % (Manual) 0 % Myelocytes % 1 H ( - 0) % Nucleated RBC % Not Reportable Neutrophils # (Manual) 8.9 H (1.5-6.6) 10^3/uL Lymphocytes # (Manual) 1.1 L (1.5-3.5) 10^3/uL Monocytes # (Manual) 0.6 (0.0-1.0) 10^3/uL Eosinophils # (Manual) 0.0 (0-0.7) 10^3/uL Basophils # (Manual) 0.0 (0-0.1) 10^3/uL Differential Comment MANUAL DIFFERENTIAL Platelet Estimate NORMAL (130-450,000) (NORMAL) RBC Morph Micro Appear NORMAL APPEARANCE (NORMAL) Sodium 135 (135-145) mmol/L Potassium 3.6 (3.5-5.0) mmol/L Chloride 100 L (101-111) mmol/L Carbon Dioxide 26 (21-32) mmol/L Anion Gap 9.0 (6-13) BUN 9 (6-20) mg/dL Creatinine 0.5 L (0.6-1.2) mg/dL Estimated GFR (MDRD) 174 (>89) Glucose 118 H (70-100) mg/dL POC Whole Bld Glucose 117 H (70 - 100) mg/dL Calcium 7.5 L (8.5-10.3) mg/dL Total Bilirubin 0.8 (0.2-1.0) mg/dL AST 22 (10-42) IU/L ALT 30 (10-60) IU/L Alkaline Phosphatase 109 (42-121) IU/L Total Protein 5.8 L (6.7-8.2) g/dL Albumin 2.4 L (3.2-5.5) g/dL Globulin 3.4 (2.1-4.2) g/dL Albumin/Globulin Ratio 0.7 L (1.0-2.2) 08/13/21 08/13/21 08/13/21 Range/Units 21:12 16:56 11:41 WBC (4.8-10.8) x10^3/uL RBC (4.70-6.10) 10^6/uL Hgb (14.0-18.0) g/dL Hct (42.0-52.0) % MCV (80.0-94.0) fL MCH (27.0-31.0) pg MCHC (32.0-36.0) g/dL RDW (12.0-15.0) % Plt Count (130-450) 10^3/uL MPV (7.4-11.4) fL Neut # (Auto) Lymph # (Auto) [place] # (Auto) Eos # (Auto) Baso # (Auto) Absolute Nucleated RBC Total Counted Band Neuts % (Manual) (0 - 10) % Abnorm Lymph % (Manual) % Myelocytes % ( - 0) % Nucleated RBC % Neutrophils # (Manual) (1.5-6.6) 10^3/uL Lymphocytes # (Manual) (1.5-3.5) 10^3/uL Monocytes # (Manual) (0.0-1.0) 10^3/uL Eosinophils # (Manual) (0-0.7) 10^3/uL Basophils # (Manual) (0-0.1) 10^3/uL Differential Comment Platelet Estimate (NORMAL) RBC Morph Micro Appear (NORMAL) Sodium (135-145) mmol/L Potassium (3.5-5.0) mmol/L Chloride (101-111) mmol/L Carbon Dioxide (21-32) mmol/L Anion Gap (6-13) BUN (6-20) mg/dL Creatinine (0.6-1.2) mg/dL Estimated GFR (MDRD) (>89) Glucose (70-100) mg/dL POC Whole Bld Glucose 109 H 115 H 143 H (70 - 100) mg/dL Calcium (8.5-10.3) mg/dL Total Bilirubin (0.2-1.0) mg/dL AST (10-42) IU/L ALT (10-60) IU/L Alkaline Phosphatase (42-121) IU/L Total Protein (6.7-8.2) g/dL Albumin (3.2-5.5) g/dL Globulin (2.1-4.2) g/dL Albumin/Globulin Ratio (1.0-2.2) - Current Medications Current Medications: Current Medications Generic Name Dose Route Start Last Admin Trade Name Freq PRN Reason Stop Dose Admin Acetaminophen 650 mg 08/13/21 14:04 08/13/21 17:24 Acetaminophen 325 Mg Tablet PO 650 mg Q6H PRN Administration Pain or Fever > 38C (100.4F) Diphenhydramine HCl 25 mg 08/06/21 22:44 08/10/21 00:56 Diphenhydramine Inj 50 Mg/Ml Vial IVP 25 mg QPM PRN Administration Insomnia Hydromorphone HCl 1 mg 08/08/21 10:40 08/14/21 08:43 Hydromorphone 1 Mg/Ml Carpuject IVP 1 mg Q2H PRN Administration PAIN Piperacillin Sod/Tazobactam 100 mls @ 200 mls/hr 08/07/21 00:00 08/14/21 07:20 Sod 3.375 gm/ Sodium Chloride IV Infused Q6HR BLAS Infusion Multivitamins 10 ml/ TRACE 2,011 mls @ 83 mls/hr 08/12/21 19:00 08/13/21 23:07 ELEMENTS 1 ml/ Amino Acids/ IV 83 mls/hr Electrolytes/Dextrose Q24H BLAS Infusion Protocol Lactated Ringer's 1,000 mls @ 42 mls/hr 08/13/21 13:57 08/14/21 08:40 Lr IV 42 mls/hr .[id number] BLAS Infusion Ondansetron HCl 4 mg 08/06/21 20:37 08/13/21 06:28 Ondansetron 4 Mg/2 Ml Vial IVP 4 mg Q6HR PRN Administration Nausea / Vomiting Oxycodone HCl 5 mg 08/13/21 14:04 08/14/21 06:48 Oxycodone 5 Mg Tablet PO 5 mg Q4HR PRN Administration PAIN Pantoprazole Sodium 40 mg 08/14/21 07:00 08/14/21 06:46 Pantoprazole 40 Mg Tablet PO 40 mg QDAC BLAS Administration Phenol/Menthol 2 sprays 08/09/21 06:56 08/09/21 12:03 Phenol Throat [place] 177 Ml MM 2 sprays Q2HR PRN Administration Throat Pain Prochlorperazine Edisylate 10 mg 08/09/21 05:15 08/09/21 05:48 Prochlorperazine 10 Mg/2 Ml Vial IVP 10 mg Q6HR PRN Administration Nausea / Vomiting Sodium Chloride 10 ml 08/06/21 20:37 08/13/21 14:57 Sodium Chloride Flush 0.9% 10 Ml Syringe IVP 10 ml PRN PRN Administration NEEDED PER PROVIDER ORDERS Sodium Chloride 10 ml 08/07/21 01:00 08/14/21 08:43 Sodium Chloride Flush 0.9% 10 Ml Syringe IVP 10 ml 0100,0900,1700 BLSA Administration Throat Lozenges 1 lozenge 08/09/21 11:18 08/09/21 12:03 Benzocaine/Menthol Lozenge MM 1 lozenge Q2HR PRN Administration Throat pain - Physical Exam Wound/Incisions: positive: Dressing dry and intact General Appearance: positive: No acute distress, Alert Respiratory: positive: No respiratory distress Abdomen: positive: Nml bowel sounds, Tenderness. negative: Guarding, Rebound ABX Reporting Has patient been on IV antibiotics over the past 48 hours?: Yes Impression/Plan - Problem List Problem List: Perforated diverticulitis with large pelvic abscess. 1. Stop PPN after this bag 2. White count is in normal limits today. If it stays in normal limits tomorrow we will try switching to oral Augmentin and let him go home with the drain in place. 3. Continue to ambulate and increase activity
[2021-08-14] MEDS: SODIUM CHLORIDE FLUSH 0.9% 10 ML SYRINGE IVP PRN ×2 (11:18→23:55)
[2021-08-14] MEDS: ACETAMINOPHEN 325 MG TABLET PO PRN ×3 (11:27→23:48)
--- NOTE | 2021-08-14 13:37 | PROVIDER PROGRESS NOTE ---
Assessment/Plan - Problem List (1) Perforation of sigmoid colon Assessment/Plan: pt ate 100% diet on today, he report mild cramp after meal otherwise he feel much better. pt's WBC is down to normal arrange. pt had no fever/chill. pt had abscess formation, then he had percutaneous drainage tube. surgeon is primary care. Per surgeon, hold TPN after the bag done, might switch to PO antibiotics and d/c on tomorrow. (2) Diverticulitis Assessment/Plan: significantly improved, pain is better controlled, and pt tolerated diet. continue antibiotics, vital and lab monitor (3) Acute urinary retention Assessment/Plan: Resolved. (4) Bladder obstruction Assessment/Plan: Resolved. (5) Small bowel obstruction Assessment/Plan: Resolved. pt tolerated diet and abdominal pain is controlled (6) Hypokalemia Assessment/Plan: resolved. - Current Meds Current Meds: Current Medications Generic Name Dose Route Start Last Admin Trade Name Freq PRN Reason Stop Dose Admin Acetaminophen 650 mg 08/13/21 14:04 08/14/21 11:27 Acetaminophen 325 Mg Tablet PO 650 mg Q6H PRN Administration Pain or Fever > 38C (100.4F) Diphenhydramine HCl 25 mg 08/06/21 22:44 08/10/21 00:56 Diphenhydramine Inj 50 Mg/Ml Vial IVP 25 mg QPM PRN Administration Insomnia Hydromorphone HCl 1 mg 08/08/21 10:40 08/14/21 08:43 Hydromorphone 1 Mg/Ml Carpuject IVP 1 mg Q2H PRN Administration PAIN Piperacillin Sod/Tazobactam 100 mls @ 200 mls/hr 08/07/21 00:00 08/14/21 11:58 Sod 3.375 gm/ Sodium Chloride IV Infused Q6HR BLAS Infusion Multivitamins 10 ml/ TRACE 2,011 mls @ 83 mls/hr 08/12/21 19:00 08/13/21 23:07 ELEMENTS 1 ml/ Amino Acids/ IV 08/14/21 18:59 83 mls/hr Electrolytes/Dextrose Q24H BLAS Infusion Protocol Ondansetron HCl 4 mg 08/06/21 20:37 08/13/21 06:28 Ondansetron 4 Mg/2 Ml Vial IVP 4 mg Q6HR PRN Administration Nausea / Vomiting Oxycodone HCl 5 mg 08/13/21 14:04 08/14/21 11:27 Oxycodone 5 Mg Tablet PO 5 mg Q4HR PRN Administration PAIN Pantoprazole Sodium 40 mg 08/14/21 07:00 08/14/21 06:46 Pantoprazole 40 Mg Tablet PO 40 mg QDAC BLAS Administration Phenol/Menthol 2 sprays 08/09/21 06:56 08/09/21 12:03 Phenol Throat Lopez 177 Ml MM 2 sprays Q2HR PRN Administration Throat Pain Prochlorperazine Edisylate 10 mg 08/09/21 05:15 08/09/21 05:48 Prochlorperazine 10 Mg/2 Ml Vial IVP 10 mg Q6HR PRN Administration Nausea / Vomiting Sodium Chloride 10 ml 08/06/21 20:37 08/14/21 11:18 Sodium Chloride Flush 0.9% 10 Ml Syringe IVP 10 ml PRN PRN Administration NEEDED PER PROVIDER ORDERS Sodium Chloride 10 ml 08/07/21 01:00 08/14/21 08:43 Sodium Chloride Flush 0.9% 10 Ml Syringe IVP 10 ml 0100,0900,1700 BLAS Administration Throat Lozenges 1 lozenge 08/09/21 11:18 08/09/21 12:03 Benzocaine/Menthol Lozenge MM 1 lozenge Q2HR PRN Administration Throat pain - Lab Result Fish Bone Diagrams: 08/14/21 05:58 08/14/21 05:58 - Additional Planning My Orders: My Active Orders 08/15/21 05:00 CMP [COMPREHENSIVE METABOLIC PANEL] [CHEM] DAILYLAB 08/16/21 05:00 CMP [COMPREHENSIVE METABOLIC PANEL] [CHEM] DAILYLAB 08/17/21 05:00 CMP [COMPREHENSIVE METABOLIC PANEL] [CHEM] DAILYLAB 08/18/21 05:00 CMP [COMPREHENSIVE METABOLIC PANEL] [CHEM] DAILYLAB 08/19/21 05:00 CMP [COMPREHENSIVE METABOLIC PANEL] [CHEM] DAILYLAB Subjective - Subjective Patient Reports: Feeling Better, Resting Comfortably Objective Vital Signs: Vital Signs - 24 hr 08/13/21 08/13/21 08/14/21 16:26 21:09 00:32 Temperature 36.8 C 36.7 C 36.8 C Heart Rate [ 68 66 Brachial] Heart Rate [ 72 Radial] Respiratory 20 18 18 Rate Blood Pressure 143/72 H 135/83 H [Left Brachial artery] Blood Pressure 145/73 H [Left Radial artery] O2 Saturation 97 98 97 08/14/21 08/14/21 08/14/21 06:21 08:11 11:29 Temperature 36.6 C 36.7 C 36.3 C L Heart Rate [ 75 Brachial] Heart Rate [ 75 71 Radial] Respiratory 18 20 19 Rate Blood Pressure 143/78 H 127/83 H [Left Brachial artery] Blood Pressure 148/82 H [Left Radial artery] O2 Saturation 98 96 97 Oxygen O2 Source Room air I&O (Last 24 Hrs): Intake and Output Totals x24h 08/12/21 08/13/21 08/14/21 23:59 23:59 23:59 Intake Total 2850.000 4672.717 1207.0 Output Total 2075 4787 925 Balance 775.000 -114.283 282.0 General: Alert, Oriented x3, Cooperative, No acute distress HEENT: Atraumatic Neck: Supple, No thyromegaly Neuro: Alert, Non Focal, Oriented Times 3 Cardiovascular: Regular rate, Normal S1, Normal S2 Respiratory: Chest non-tender, No respiratory distress Abdomen: Normal bowel sounds, Soft Extremities: Normal pulses - Results Results: Laboratory Results WBC 10.7 x10^3/uL (4.8-10.8) 08/14/21 05:58 RBC 4.41 10^6/uL (4.70-6.10) L 08/14/21 05:58 Hgb 12.7 g/dL (14.0-18.0) L 08/14/21 05:58 Hct 38.9 % (42.0-52.0) L 08/14/21 05:58 MCV 88.2 fL (80.0-94.0) 08/14/21 05:58 MCH 28.8 pg (27.0-31.0) 08/14/21 05:58 MCHC 32.6 g/dL (32.0-36.0) 08/14/21 05:58 RDW 12.9 % (12.0-15.0) 08/14/21 05:58 Plt Count 424 10^3/uL (130-450) 08/14/21 05:58 MPV 8.4 fL (7.4-11.4) 08/14/21 05:58 Neut # (Auto) Not Reportable 08/14/21 05:58 Lymph # (Auto) Not Reportable 08/14/21 05:58 Smith # (Auto) Not Reportable 08/14/21 05:58 Eos # (Auto) Not Reportable 08/14/21 05:58 Baso # (Auto) Not Reportable 08/14/21 05:58 Absolute Nucleated RBC Not Reportable 08/14/21 05:58 Total Counted 100 08/14/21 05:58 Band Neuts % (Manual) 3 % (0-10) 08/14/21 05:58 Abnorm Lymph % (Manual) 0 % 08/14/21 05:58 Myelocytes % 1 % (-0) H 08/14/21 05:58 Nucleated RBC % Not Reportable 08/14/21 05:58 Neutrophils # (Manual) 8.9 10^3/uL (1.5-6.6) H 08/14/21 05:58 Lymphocytes # (Manual) 1.1 10^3/uL (1.5-3.5) L 08/14/21 05:58 Monocytes # (Manual) 0.6 10^3/uL (0.0-1.0) 08/14/21 05:58 Eosinophils # (Manual) 0.0 10^3/uL (0-0.7) 08/14/21 05:58 Basophils # (Manual) 0.0 10^3/uL (0-0.1) 08/14/21 05:58 Differential Comment MANUAL DIFFERENTIAL 08/14/21 05:58 Platelet Estimate NORMAL (130-450,000) (NORMAL) 08/14/21 05:58 RBC Morph Micro Appear NORMAL APPEARANCE (NORMAL) 08/14/21 05:58 INR (Fingerstick) 1.0 (0.8-1.2) 08/12/21 10:03 Sodium 135 mmol/L (135-145) 08/14/21 05:58 Potassium 3.6 mmol/L (3.5-5.0) 08/14/21 05:58 Chloride 100 mmol/L (101-111) L 08/14/21 05:58 Carbon Dioxide 26 mmol/L (21-32) 08/14/21 05:58 Anion Gap 9.0 (6-13) 08/14/21 05:58 BUN 9 mg/dL (6-20) 08/14/21 05:58 Creatinine 0.5 mg/dL (0.6-1.2) L 08/14/21 05:58 Estimated GFR (MDRD) 174 (>89) 08/14/21 05:58 Glucose 118 mg/dL (70-100) H 08/14/21 05:58 POC Whole Bld Glucose 98 mg/dL (70 - 100) 08/14/21 11:33 Lactic Acid 1.4 mmol/L (0.5-2.2) 08/07/21 06:18 Calcium 7.5 mg/dL (8.5-10.3) L 08/14/21 05:58 Phosphorus 2.7 mg/dL (2.5-4.6) 08/13/21 06:35 Magnesium 2.6 mg/dL (1.7-2.8) 08/13/21 06:35 Total Bilirubin 0.8 mg/dL (0.2-1.0) 08/14/21 05:58 AST 22 IU/L (10-42) 08/14/21 05:58 ALT 30 IU/L (10-60) 08/14/21 05:58 Alkaline Phosphatase 109 IU/L (42-121) 08/14/21 05:58 Total Protein 5.8 g/dL (6.7-8.2) L 08/14/21 05:58 Albumin 2.4 g/dL (3.2-5.5) L 08/14/21 05:58 Globulin 3.4 g/dL (2.1-4.2) 08/14/21 05:58 Albumin/Globulin Ratio 0.7 (1.0-2.2) L 08/14/21 05:58 Prealbumin 10 mg/dL (18-45) L 08/13/21 06:35 Lipase 22 U/L (22-51) 08/06/21 17:25 Urine Color YELLOW 08/06/21 18:05 Urine Clarity CLEAR (CLEAR) 08/06/21 18:05 Urine pH 6.5 PH (5.0-7.5) 08/06/21 18:05 Ur Specific Hagaman 1.020 (1.002-1.030) 08/06/21 18:05 Urine Protein NEGATIVE mg/dL (NEGATIVE) 08/06/21 18:05 Urine Glucose (UA) NEGATIVE mg/dL (NEGATIVE) 08/06/21 18:05 Urine Ketones TRACE mg/dL (NEGATIVE) 08/06/21 18:05 Urine Occult Blood NEGATIVE (NEGATIVE) 08/06/21 18:05 Urine Nitrite NEGATIVE (NEGATIVE) 08/06/21 18:05 Urine Bilirubin NEGATIVE (NEGATIVE) 08/06/21 18:05 Urine Urobilinogen 0.2 (NORMAL) E.U./dL (NORMAL) 08/06/21 18:05 Ur Leukocyte Esterase NEGATIVE (NEGATIVE) 08/06/21 18:05 Ur Microscopic Review NOT INDICATED 08/06/21 18:05 Urine Culture Comments NOT INDICATED 08/06/21 18:05 Nasal Adenovirus (PCR) NOT DETECTED 08/06/21 19:30 Nasal B. parapertussis DNA (PCR) NOT DETECTED 08/06/21 19:30 Nasal Coronavir 229E PCR NOT DETECTED 08/06/21 19:30 Nasal Coronavir HKU1 PCR NOT DETECTED 08/06/21 19:30 Nasal Coronavir NL63 PCR NOT DETECTED 08/06/21 19:30 Nasal Coronavir OC43 PCR NOT DETECTED 08/06/21 19:30 Nasal Enterovir/Rhinovir PCR NOT DETECTED 08/06/21 19:30 Nasal Influenza B PCR NOT DETECTED 08/06/21 19:30 Nasal Influenza A PCR NOT DETECTED 08/06/21 19:30 Nasal Parainfluen 1 PCR NOT DETECTED 08/06/21 19:30 Nasal Parainfluen 2 PCR NOT DETECTED 08/06/21 19:30 Nasal Parainfluen 3 PCR NOT DETECTED 08/06/21 19:30 Nasal Parainfluen 4 PCR NOT DETECTED 08/06/21 19:30 Nasal RSV (PCR) NOT DETECTED 08/06/21 19:30 Nasal B.pertussis DNA PCR NOT DETECTED 08/06/21 19:30 Nasal C.pneumoniae (PCR) NOT DETECTED 08/06/21 19:30 Jed Human Metapneumo PCR NOT DETECTED 08/06/21 19:30 Nasal M.pneumoniae (PCR) NOT DETECTED 08/06/21 19:30 Nasal SARS-CoV-2 (PCR) NOT DETECTED 08/06/21 19:30 Sepsis Event Note (H) - Sepsis Criteria Sepsis Criteria: WBC count greater than 12,000 or less than 4000 ABX Reporting Has patient been on IV antibiotics over the past 48 hours?: No Current Medications - Current Medications Current Medications: Active Medications Acetaminophen (Acetaminophen 325 Mg Tablet) 650 mg PO Q6H PRN PRN Reason: Pain or Fever > 38C (100.4F) Last Admin: 08/14/21 11:27 Dose: 650 mg Diphenhydramine HCl (Diphenhydramine Inj 50 Mg/Ml Vial) 25 mg IVP QPM PRN PRN Reason: Insomnia Last Admin: 08/10/21 00:56 Dose: 25 mg Hydromorphone HCl (Hydromorphone 1 Mg/Ml Carpuject) 1 mg IVP Q2H PRN PRN Reason: PAIN Last Admin: 08/14/21 08:43 Dose: 1 mg Piperacillin Sod/Tazobactam (Sod 3.375 gm/ Sodium Chloride) 100 mls @ 200 mls/hr IV Q6HR BLAS Last Infusion: 08/14/21 11:58 Dose: Infused Multivitamins 10 ml/ TRACE ELEMENTS 1 ml/ Amino Acids/Electrolytes/Dextrose 2,011 mls @ 83 mls/hr IV Q24H BLAS; Protocol Stop: 08/14/21 18:59 Last Infusion: 08/13/21 23:07 Dose: 83 mls/hr Ondansetron HCl (Ondansetron 4 Mg/2 Ml Vial) 4 mg IVP Q6HR PRN PRN Reason: Nausea / Vomiting Last Admin: 08/13/21 06:28 Dose: 4 mg Oxycodone HCl (Oxycodone 5 Mg Tablet) 5 mg PO Q4HR PRN PRN Reason: PAIN Last Admin: 08/14/21 11:27 Dose: 5 mg Pantoprazole Sodium (Pantoprazole 40 Mg Tablet) 40 mg PO QDAC BLAS Last Admin: 08/14/21 06:46 Dose: 40 mg Phenol/Menthol (Phenol Throat Lopez 177 Ml) 2 sprays MM Q2HR PRN PRN Reason: Throat Pain Last Admin: 08/09/21 12:03 Dose: 2 sprays Prochlorperazine Edisylate (Prochlorperazine 10 Mg/2 Ml Vial) 10 mg IVP Q6HR PRN PRN Reason: Nausea / Vomiting Last Admin: 08/09/21 05:48 Dose: 10 mg Sodium Chloride (Sodium Chloride Flush 0.9% 10 Ml Syringe) 10 ml IVP PRN PRN PRN Reason: NEEDED PER PROVIDER ORDERS Last Admin: 08/14/21 11:18 Dose: 10 ml Sodium Chloride (Sodium Chloride Flush 0.9% 10 Ml Syringe) 10 ml IVP 0100,0900,1700 BLAS Last Admin: 08/14/21 08:43 Dose: 10 ml Throat Lozenges (Benzocaine/Menthol Lozenge) 1 lozenge MM Q2HR PRN PRN Reason: Throat pain Last Admin: 08/09/21 12:03 Dose: 1 lozenge Witch Lori/Glycerin (Witch Lori/Glycerin 1 Pad) 1 pad TOP PRN PRN PRN Reason: ITCHING No Known Home Medications 08/06/21
[2021-08-15] MEDS: ACETAMINOPHEN 325 MG TABLET PO PRN (05:58)
[2021-08-15] MEDS: PANTOPRAZOLE 40 MG TABLET PO SCH (05:58)
[2021-08-15] MEDS: PIPERACILLIN/TAZOBACTAM 3.375 GM in SODIUM CHLORIDE 0.9% MINIBAG 100 ML IV SCH (05:59)
[2021-08-15] MEDS: SODIUM CHLORIDE FLUSH 0.9% 10 ML SYRINGE IVP SCH (05:59)
[2021-08-15 06:08] LABS: BASOPHILS % (AUTO) 0.4 %; EOSINOPHILS % (AUTO) 4.5 %; HCT - HEMATOCRIT 41.9 % (42.0-52.0); HGB - HEMOGLOBIN 13.8 g/dL (14.0-18.0); MEAN CORPUSCULAR HEMOGLOBIN 29.1 pg (27.0-31.0); MEAN CORPUSCULAR HGB CONC 32.9 g/dL (32.0-36.0); MEAN CORPUSCULAR VOLUME 88.2 fL (80.0-94.0); MEAN PLATELET VOLUME 8.2 fL (7.4-11.4); MONOCYTES % (AUTO) 5.6 %; NEUTROPHILS % (AUTO) 74.1 %; PLT - PLATELET COUNT 503 10^3/uL (130-450); RED BLOOD COUNT 4.75 10^6/uL (4.70-6.10)
[2021-08-15 06:20] LABS: ALBUMIN 2.7 g/dL (3.2-5.5); ALBUMIN/GLOBULIN RATIO 0.7 (1.0-2.2); BILIRUBIN,TOTAL 1.1 mg/dL (0.2-1.0); CALCIUM 8.1 mg/dL (8.5-10.3); CREATININE 0.7 mg/dL (0.6-1.2); POTASSIUM 3.9 mmol/L (3.5-5.0); TOTAL PROTEIN 6.8 g/dL (6.7-8.2)
[2021-08-15 06:26] LABS: ABNORMAL LYMPHS % (MANUAL) 0 %
[2021-08-15 07:07] LABS: BAND NEUTROPHILS % (MANUAL) 1 %; DIFFERENTIAL COMMENT MANUAL DIFFERENTIAL; EOSINOPHILS # (MANUAL) 0.3 10^3/uL (0-0.7); LYMPHOCYTES # (MANUAL) 1.2 10^3/uL (1.5-3.5); LYMPHOCYTES % (MANUAL) 7 %; MONOCYTES # (MANUAL) 0.4 10^3/uL (0.0-1.0); MYELOCYTES % (MANUAL) 4 %; NEUTROPHILS # (MANUAL) 8.6 10^3/uL (1.5-6.6); REACTIVE LYMPHS % (MANUAL) 4 %
[2021-08-15] MEDS: ONDANSETRON 4 MG/2 ML VIAL IVP PRN (08:50)
[2021-08-15] MEDS: SODIUM CHLORIDE FLUSH 0.9% 10 ML SYRINGE IVP PRN (08:52)
[2021-08-15] MEDS: oxyCODONE 5 MG TABLET PO PRN (09:22)
[2021-08-15] MEDS ORDERED: AMOX/CLAV 875 MG/125 MG TABLET PO SCH (10:41)
[2021-08-15] MEDS ORDERED: SIMETHICONE CHEW 80 MG TABLET PO PRN (10:57)
[2021-08-15 10:58] VITALS: BP 133/84
--- NOTE | 2021-08-15 12:52 | Discharge Plan ---
Discharge Plan Problem Reviewed?: Yes Disposition: Home, Self Care Condition: Stable Prescriptions: oxyCODONE [Roxicodone] 5 mg PO Q4HR PRN #20 tablet PRN Reason: Pain Amox/Clav 875/125 [Augmentin 875/125 Tab] 1 tab PO BID #14 tablet Docusate Sodium 100Mg Capsule [Colace 100Mg Capsule] 200 mg PO DAILY 30 Days #30 cap Pantoprazole [Protonix] 20 mg PO QDAC #30 tablet Ondansetron Odt [Zofran Odt] 4 mg TL Q6H PRN #10 tablet PRN Reason: Nausea / Vomiting Diet: Regular Activity Restrictions: 10 pound lifting restrict Shower Restrictions: No (No tub bath) Driving Restrictions: Yes (Not while using narcotics) Instruction Topics: Amoxicillin Clavulanic Acid tablets, Diverticulitis Dc, T Tube Care Dc No Smoking: If you smoke, Please STOP! Call for help. Follow-up with: Provider,Other [Primary Care Provider] - Jonathan Good MD [Provider Admit Priv/Credential] -
--- NOTE | 2021-08-15 12:54 | DISCHARGE SUMMARY ---
"Discharge Summary Admit Date: 08/06/21 Discharge Date: 08/15/21 Discharging Provider: Latisha Primary Care Provider: None Code Status: Attempt Resuscitation Condition at Discharge: Stable Discharge Disposition: 01 Home, Self Care - DIAGNOSES Admission Diagnoses: Perforated diverticulitis Discharge Diagnoses with Status of Each Condition: 1. Perforated diverticulitis - improved 2. Intraperitoneal abscess - drained/improved - HPI History of Present Illness: Pt is a 51 yo M with no known PMH, no prior abdominal surgery who presents for abdominal pain. Pain started yesterday evening subsequent to masturbating with anal stimulation via a sex toy of ~8-9 in. length. Pain has gotten slightly more diffuse but mostly in LLQ. No BM or flatus since pain started. No emesis. Denies any anal bleeding. Has never had similar episodes. No fevers at home. Was retaining urine, akers catheter placed with relief. In ED pt still with abdominal pain. HR 80-90s, BP 150s systolic, afebrile. Labs notable for WBC 13; CT scan showing sigmoid thickening with pericolonic free air, as well as some ventral free air and some mild free fluid. - CONSULTS | PROCEDURES Consultations: Hospitalist service Procedures: IR intraperitoneal drain placement - HOSPITAL COURSE Hospital Course: Patient was admitted to the [facility] floor and started on IV antibiotics. He was placed on bowel rest and given proton pump inhibitors as well. He began to improve almost immediately. He developed an ileus associated with all of the intraperitoneal inflammation and required an NG tube for short period. This res olved without further intervention. 5 days after his admission and after being on IV antibiotics, a CT scan of the abdomen pelvis was obtained which revealed a large intraperitoneal abscess. The following day, this abscess was drained by our interventional radiology staff. The abscess grew E. coli sensitive to Zosyn.Since that time he has steadily improved. He is having pain at the drain site and occasional nausea with pain medication but is eating a regular diet he is able to walk unassisted and he is able to empty his bladder spontaneously.He was changed to oral antibiotic yesterday and has been tolerating it well. He is discharged to his home in the care of his family with Augmentin for the next 7 days. Additionally he will have oxycodone for pain control, omeprazole for heartburn and reflux symptoms, Zofran for nausea, and Colace to be sure he maintains a soft stool.The drain will need to stay in place for at least another week. Our plan will be to see him back in the office in 1 week and then repeat the CAT scan. As long as he is doing well, the drainage stays clear, and the CAT scan looks encouraging, we will remove the drain in the office and then plan for a colonoscopy in about 3 months.Prescriptions have been transmitted to [facility]. - ALLERGIES Allergies/Adverse Reactions: Allergies Allergy/AdvReac Type Severity Reaction Status Date / Time No Known Drug Allergies Allergy Verified 08/06/21 16:46 - MEDICATIONS Home Medications: Ambulatory Orders Medication Instructions Recorded Confirmed Acetaminophen [Tylenol] 650 mg PO Q6H PRN tablet 08/15/21 Amox/Clav 875/125 [Augmentin 1 tab PO BID #14 tablet 08/15/21 875/125 Tab] Docusate Sodium 100Mg Capsule 200 mg PO DAILY 30 Days #30 cap 08/15/21 [Colace 100Mg Capsule] Ondansetron Odt [Zofran Odt] 4 mg TL Q6H PRN #10 tablet 08/15/21 Pantoprazole [Protonix] 20 mg PO QDAC #30 tablet 08/15/21 Simethicone [Mylicon] 80 mg PO Q6HR PRN tablet 08/15/21 Witch Lori/Glycerin [Tucks] 1 pad TOP PRN PRN pkg 08/15/21 oxyCODONE [Roxicodone] 5 mg PO Q4HR PRN #20 tablet 08/15/21 - PHYSICAL EXAM AT DISCHARGE General Appearance: positive: No acute distress, Alert Eyes Bilateral: positive: Normal inspection, PERRL, EOMI ENT: positive: ENT inspection nml, Pharynx nml, No signs of dehydration Neck: positive: Nml inspection Respiratory: positive: No respiratory distress, Breath sounds nml Cardiovascular: positive: Regular rate & rhythm, No murmur Peripheral Pulses: positive: 1+ Abdomen: positive: Nml bowel sounds, Tenderness, Other (Drain is in place with mostly serous output now). negative: Guarding, Rebound Rectal: positive: Other Skin: positive: Color nml Extremities: positive: Full ROM Neurologic/Psychiatric: positive: Oriented x3 - LABS Result Diagrams: 08/15/21 05:59 08/15/21 05:59 - SEPSIS Confirmed Source and Organism (if known) of Sepsis: E. coli - Intraperitoneal abscess Sepsis Criteria: Recorded Temperature greater than 38.3C or Less than 36C, Recorded Heart Rate greater than 90 bpm, Recorded Respiratory Rate greater than 20, WBC count greater than 12,000 or less than 4000, Hepatic: Bilirubin greater than 2mg/dl - QUALITY (Female Hip Fx Only) Was patient sent home on osteoporosis medication?: No - FOLLOW UP Follow Up: [facility] - Dr. Good 1 week - TIME SPENT Time Spent in Discharge (Minutes): 20"
== END 2021-08-15 14:05 | disposition home or self-care (01) | DRG 391 ==
LOC: ED 16:34 → MS2 20:37
PROVIDERS: ADMIT Surgery; ATTEND Surgery
PROC: 0W9G30Z Drainage of Peritoneal Cavity with Drainage Device, Percutaneous Approach (ICD-10-PCS; principal; 2021-08-12)
DX: K57.20 Diverticulitis of large intestine with perforation and abscess without bleeding (principal); K65.1 Peritoneal abscess; A41.51 Sepsis due to Escherichia coli [E. coli]; K56.609 Unspecified intestinal obstruction, unspecified as to partial versus complete obstruction; R33.9 Retention of urine, unspecified; Z20.822 Contact with and (suspected) exposure to COVID-19; N32.0 Bladder-neck obstruction; K21.9 Gastro-esophageal reflux disease without esophagitis; R11.2 Nausea with vomiting, unspecified; E87.6 Hypokalemia; E66.9 Obesity, unspecified; Z68.31 Body mass index [BMI] 31.0-31.9, adult
CPT/HCPCS: 0202U; 36415; 49406; 51702; 71045; 74018; 74177; 80048; 80053; 81003; 83605; 83690; 83735; 84100; 84134; 85025; 85027; 85610; 87070; 87181; 87205; 96361; 96365; 96375; 96376; 99231; 99283; 99284; 99285; A9270; J0131; J1170; J1200; J3490; J7120; Q9967; 81001; 87086

== ENCOUNTER 2021-10-12 11:33 | Outpatient (CLI) | payer OTHER ==
[2021-10-12] MEDS ORDERED: IOVERSOL 320 100 ML VIAL IVP ONE ×2 (11:57→13:13)
[2021-10-12] MEDS ORDERED: IOVERSOL 320 50 ML VIAL ONE (11:57)
[2021-10-12 12:15] LABS: CREATININE 0.8 mg/dL (0.6-1.2)
[2021-10-12] MEDS ORDERED: IOVERSOL 320 50 ML VIAL PO ONE (13:13)
--- NOTE | 2021-10-12 17:56 | CT Report ---
PROCEDURE: Abdomen/Pelvis W INDICATIONS: DIVERTIVULITIS CONTRAST: IV CONTRAST: Optiray 320 ml: 100 PO CONTRAST: Optiray 320 ml50 TECHNIQUE: After the administration of oral and IV contrast, 5 mm thick sections acquired from the diaphragms to the symphysis. 5 mm thick coronal and sagittal reformats were acquired. For radiation dose reducti on, the following was used: automated exposure control, adjustment of mA and/or kV according to binta ent size. COMPARISON: 08/11/2021, 08/12/2021, 08/06/2021 FINDINGS: Image quality: Excellent. ABDOMEN: Lung bases: Lung bases are clear. The previously seen pleural effusions have resolved. Heart size i s normal. A small hiatal hernia is incidentally noted. Solid organs: The liver demonstrates normal size. There is a likely right liver hemangioma seen that measures up to 2.5 cm. Smaller low-density lesions can be seen within the liver, which may represent cysts or additional hemangiomas. The spleen demonstrates normal size and demonstrates no suspicious lesions. Gallbladder wall does not appear thickened. Biliary system is non dilated. Pancreas enh ances normally. No adrenal nodules. Kidneys demonstrate normal size and enhancement, without hydron ephrosis. A simple appearing cyst is seen exophytic along the lateral aspect of the left kidney kofi uring 1.5 cm. Peritoneum and bowel: Mild wall thickening and inflammatory change can be seen involving the sigmoid colon, which is clearly improved compared to the prior examination. On series 3 image 76 there is a p rominent diverticulum versus a small contained perforation.. No dilated loops of small bowel are seen. Nodes and vessels: No retroperitoneal or mesenteric adenopathy by size criteria. Aorta and inferior vena cava are normal in size. Miscellaneous: A mild fat-containing periumbilical hernia is seen. PELVIS: Genitourinary: Bladder wall thickness is normal. Miscellaneous: No inguinal adenopathy. Bilateral fat-containing inguinal hernias are seen. Bones: No suspicious bony lesions. No vertebral body compression fractures. Mild dextroconvex scol iotic curvature is seen. IMPRESSION: Residual inflammatory change can be seen involving the sigmoid colon. These findings are attributed to resolving diverticulitis. Within the area of inflammatory change there is a 1.5 cm pro minent diverticulum versus a small contained perforation. Incidental note is made of: Small hiatal hernia Liver hemangioma Additional smaller liver lesions, which may represent cysts or hemangiomas Simple appearing left renal cyst Fat-containing periumbilical hernia Bilateral fat-containing inguinal hernias Reviewed by: Bryant Traore MD on 10/12/2021 4:54 PM AKRAE Approved by: Bryant Traore MD on 10/12/2021 4:54 PM YUE Station ID: [id number]
== END 2021-10-12 11:34 | disposition home or self-care (01) ==
LOC: DI 11:33
PROVIDERS: ATTEND Internal Medicine
DX: K57.92 Diverticulitis of intestine, part unspecified, without perforation or abscess without bleeding (principal); Z79.899 Other long term (current) drug therapy
CPT/HCPCS: 36415; 74177; 82565; Q9967

== ENCOUNTER 2022-05-03 21:56 | Emergency (ER) | payer OTHER ==
[2022-05-03 22:20] LABS: BASOPHILS # (AUTO) 0.1 10^3/uL (0.0-0.1); BASOPHILS % (AUTO) 0.7 %; EOSINOPHILS # (AUTO) 0.3 10^3/uL (0.0-0.7); EOSINOPHILS % (AUTO) 3.7 %; HCT - HEMATOCRIT 45.4 % (42.0-52.0); HGB - HEMOGLOBIN 15.6 g/dL (14.0-18.0); LYMPHOCYTES # (AUTO) 1.9 10^3/uL (1.5-3.5); LYMPHOCYTES % (AUTO) 20.7 %; MEAN CORPUSCULAR HEMOGLOBIN 29.5 pg (27.0-31.0); MEAN CORPUSCULAR HGB CONC 34.4 g/dL (32.0-36.0); MEAN PLATELET VOLUME 8.9 fL (7.4-11.4); MONOCYTES # (AUTO) 0.8 10^3/uL (0.0-1.0); MONOCYTES % (AUTO) 8.9 %; NEUTROPHILS # (AUTO) 5.9 10^3/uL (1.5-6.6); NEUTROPHILS % (AUTO) 65.6 %; PLT - PLATELET COUNT 322 10^3/uL (130-450); RED BLOOD COUNT 5.28 10^6/uL (4.70-6.10); RED CELL DISTRIBUTION WIDTH 11.9 % (12.0-15.0); WHITE BLOOD COUNT 8.9 x10^3/uL (4.8-10.8)
[2022-05-03 22:36] LABS: ALBUMIN 4.3 g/dL (3.2-5.5); ALBUMIN/GLOBULIN RATIO 1.2 (1.0-2.2); BILIRUBIN,TOTAL 0.7 mg/dL (0.2-1.0); CALCIUM 8.6 mg/dL (8.5-10.3); CREATININE 0.9 mg/dL (0.6-1.2); TOTAL PROTEIN 7.8 g/dL (6.7-8.2)
--- NOTE | 2022-05-03 22:40 | XRAY Report ---
PROCEDURE: Chest 1 View X-Ray INDICATIONS: Chest Pain TECHNIQUE: One view of the chest was acquired. COMPARISON: FINDINGS: Surgical changes and devices: None. Lungs and pleura: No pleural effusions or pneumothorax. Lungs are clear considering reduced inspira tory volume. Mediastinum: Mediastinal contours appear normal. Heart size is normal. Bones and chest wall: No suspicious bony lesions. Overlying soft tissues appear unremarkable. IMPRESSION: Reduced inspiratory volume which produces mild crowding of the bronchovascular markings. Also, the he art size is within normal limits given the degree of inspiratory volume currently present. Reviewed by: Arcadio Sanchez MD on 05/03/2022 10:39 PM PDT Approved by: Arcadio Sanchez MD on 05/03/2022 10:39 PM PDT Station ID: [id number]
--- NOTE | 2022-05-03 22:45 | ED Physician Documentation ---
PD HPI CHEST PAIN - Stated complaint Stated Complaint: CHEST DISCOMFORT - Chief complaint Chief Complaint: Cardiac - History obtained from History obtained from: Patient - History of Present Illness Timing - onset: Enter time (2099), Today Timing - onset during: Rest Timing - duration: Minutes Timing - details: Abrupt onset, Now resolved Quality: Pressure, Tightness Location: Substernal Radiation: No: Jaw, Neck, Back, Abdominal, Left upper extremity, Right upper extremity Improved by: Other (time) Worsened by: No: Exertion, Inspiration, Eating, Movement, Palpation, Position Associated symptoms: No: Shortness of air, Diaphoresis, Nausea, Vomiting, Feeling faint / dizzy, General Weakness, Palpitations, Cough Similar symptoms before: No diagnosis Recently seen: Clinic - Additional information Additional information: 52-year-old Naren Greco has developed an acute episode of anterior chest pressure that felt like squeezing to his upper chest that caused a difficulty getting a full breath. This lasted about 10 minutes. He has had a similar episode that was worse about 1 week ago. Subsequent to that he has not had any trouble and was able to do his usual work which includes 17-20,000 steps per day at his job at [employer]. He has been placed on Zoloft about one month ago and he is wondering if this could be a contribution. Review of Systems Constitutional: denies: Fever Eyes: denies: Decreased vision Ears: denies: Ear pain Nose: denies: Rhinorrhea / runny nose, Congestion Throat: denies: Sore throat Cardiac: reports: Chest pain / pressure. 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 HEENT: Tonsil/Adenoidectomy - Present Medications Home Medications: Ambulatory Orders Medication Instructions Recorded Confirmed Sertraline [Zoloft] 50 mg PO DAILY 05/03/22 05/03/22 - Allergies Allergies/Adverse Reactions: Allergies Allergy/AdvReac Type Severity Reaction Status Date / Time No Known Drug Allergies Allergy Verified 05/03/22 22:00 - Social History Does the pt smoke?: No Smoking Status: Never smoker Does the pt drink ETOH?: No Does the pt have substance abuse?: No - Immunizations Immunizations are current?: No Immunizations: TDAP >10years/unknown - POLST Patient has POLST: No PD ED PE NORMAL - Vitals Vital signs reviewed: Yes (hypesrtensive ) - General General: Alert and oriented X 3, No acute distress, Well developed/nourished - HEENT HEENT: Atraumatic, PERRL, EOMI - Neck Neck: Supple, no meningeal sign, No bony TTP - Cardiac Cardiac: RRR, No murmur - Respiratory Respiratory: No respiratory distress, Clear bilaterally - Abdomen Abdomen: Soft, Non tender - Back Back: No CVA TTP, No spinal TTP - Derm Derm: Normal color, Warm and dry, No rash - Extremities Extremities: No deformity, No edema - Neuro Neuro: Alert and oriented 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, 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, No motor deficit, No sensory deficit, Normal speech Eye Opening: Spontaneous Motor: Obeys Commands Verbal: Oriented GCS Score: 15 - Psych Psych: Normal mood, Normal affect Results - Vitals Vitals: Vital Signs - 24 hr 05/03/22 05/03/22 05/04/22 22:00 23:47 00:15 Temperature 36.3 C L Heart Rate 81 69 65 Respiratory 18 14 14 Rate Blood Pressure 178/113 H 137/92 H 134/86 H O2 Saturation 98 96 96 Oxygen O2 Source Room air - EKG (time done) 2158 Rate: Rate (enter#) (79) QRS: LVH Computer interpretation: Agree with computer - Labs Labs: Laboratory Tests 05/03/22 05/03/22 05/03/22 22:15 22:15 22:15 WBC 8.9 RBC 5.28 Hgb 15.6 Hct 45.4 MCV 86.0 MCH 29.5 MCHC 34.4 RDW 11.9 L Plt Count 322 MPV 8.9 Neut # (Auto) 5.9 Lymph # (Auto) 1.9 [place] # (Auto) 0.8 Eos # (Auto) 0.3 Baso # (Auto) 0.1 Absolute Nucleated RBC 0.00 Nucleated RBC % 0.0 D-Dimer Sodium 138 Potassium 4.0 Chloride 104 Carbon Dioxide 29 Anion Gap 5.0 L BUN 18 Creatinine 0.9 Estimated GFR (MDRD) 88 L Glucose 117 H Calcium 8.6 Total Bilirubin 0.7 AST 26 ALT 22 Alkaline Phosphatase 68 Troponin I High Sens 4.6 Total Protein 7.8 Albumin 4.3 Globulin 3.5 Albumin/Globulin Ratio 1.2 Lipase 31 05/03/22 22:42 WBC RBC Hgb Hct MCV MCH MCHC RDW Plt Count MPV Neut # (Auto) Lymph # (Auto) [place] # (Auto) Eos # (Auto) Baso # (Auto) Absolute Nucleated RBC Nucleated RBC % D-Dimer 236.4 Sodium Potassium Chloride Carbon Dioxide Anion Gap BUN Creatinine Estimated GFR (MDRD) Glucose Calcium Total Bilirubin AST ALT Alkaline Phosphatase Troponin I High Sens Total Protein Albumin Globulin Albumin/Globulin Ratio Lipase - Rads (name of study) chest Radiology: Prelim report reviewed (Impression: Reduced inspiratory volume which produces mild crowding of the bronchovascular markings. Also, the heart size is within normal limits given the degree of inspiratory volume currently present.), EMP read indepedently, See rad report PD MEDICAL DECISION MAKING - ED course Complexity details: reviewed old records, reviewed results, re-evaluated patient, considered differential, d/w patient ED course: 52-year-old male with a second episode of chest pain that has resolved has a negative electrocardiogram normal-appearing chest x-ray is asymptomatic now and has a negative D-dimer. I considered the most threatening things to this patient to be an acute coronary syndrome or pulmonary embolism we found no evidence of either of these in our work-up tonight. He did arrive to the emergency department with significant hypertension and this has resolved during his visit. I did discuss with the patient reasons for a spike in the blood pressure including alcohol withdrawal or excessive use of salt. He does not drink at all and he does acknowledge that he may have some issue with salt. In addition he has significant stress and that his is down taking care of her parents in [place] and his mother is about 3 months ago he states that this has been a bad year for him. And he is well aware of the amount of stress he is under. Is diagnosed with atypical chest pain and given instructions for atypical chest pain and stress reaction. Departure - Departure Disposition: Home, Self Care Clinical Impression: Atypical chest pain, Stress reaction Condition: Stable Instructions: ED Stress React, ED Chest Pain Atypical Unkn Cause Follow-Up: Olinda Cosme ARNP [Primary Care Provider] - Comments: Naren, today we did not find a specific reason for the symptoms you presented with. We did note that your blood pressure was significantly elevated when you arrived and it appears to be normal now. The symptoms may be related to a spike in blood pressure. We did test for coronary syndrome and did not find evidence of that. We tested for pulmonary embolism and the test for that was negative as well. I suspect the stress you are under is contributing. Discharge Date/Time: 05/04/22 00:23
[2022-05-04 00:17] VITALS: BP 134/86
== END 2022-05-04 00:23 | disposition home or self-care (01) ==
LOC: ED 21:56
DX: R07.89 Other chest pain (principal); F43.9 Reaction to severe stress, unspecified; I10 Essential (primary) hypertension; G47.30 Sleep apnea, unspecified
CPT/HCPCS: 36415; 80053; 83690; 84484; 85025; 85379; 93005; 99284

== ENCOUNTER 2024-01-20 12:06 | Outpatient (CLI) | payer OTHER ==
[2024-01-20 12:21] LABS: BASOPHILS % (AUTO) 0.6 %; EOSINOPHILS # (AUTO) 0.2 10^3/uL (0.0-0.7); HCT - HEMATOCRIT 42.8 % (42.0-52.0); HGB - HEMOGLOBIN 14.2 g/dL (14.0-18.0); LYMPHOCYTES # (AUTO) 1.2 10^3/uL (1.5-3.5); LYMPHOCYTES % (AUTO) 16.4 %; MEAN CORPUSCULAR HEMOGLOBIN 28.7 pg (27.0-31.0); MEAN CORPUSCULAR HGB CONC 33.2 g/dL (32.0-36.0); MEAN CORPUSCULAR VOLUME 86.5 fL (80.0-94.0); MONOCYTES # (AUTO) 0.5 10^3/uL (0.0-1.0); MONOCYTES % (AUTO) 6.7 %; NEUTROPHILS # (AUTO) 5.1 10^3/uL (1.5-6.6); NEUTROPHILS % (AUTO) 72.7 %; PLT - PLATELET COUNT 293 10^3/uL (130-450); RED BLOOD COUNT 4.95 10^6/uL (4.70-6.10); RED CELL DISTRIBUTION WIDTH 11.8 % (12.0-15.0)
[2024-01-20 12:37] LABS: ALBUMIN 4.1 g/dL (3.2-5.5); ALBUMIN/GLOBULIN RATIO 1.3 (1.0-2.2); ALKALINE PHOSPHATASE 71 IU/L (42-121); ALT ALANINE AMINOTRANSFERASE 39 IU/L (10-60); AST ASPARTATE AMINOTRANSFERASE 24 IU/L (10-42); BILIRUBIN,TOTAL 1.1 mg/dL (0.2-1.0); BUN - BLOOD UREA NITROGEN 15 mg/dL (6-20); CALCIUM 8.8 mg/dL (8.5-10.3); CARBON DIOXIDE - CO2 27 mmol/L (21-32); CHLORIDE 104 mmol/L (101-111); CHOL/HDL RATIO 3.6 (<5.0); CHOLESTEROL 192 mg/dL; CREATININE 0.9 mg/dL (0.6-1.3); GFR - MDRD 88 (>89); GLUCOSE 103 mg/dL (74-104); HDL CHOLESTEROL 53 mg/dL; LDL CHOLESTEROL,CALCULATED 125 mg/dL; LDL/HDL RATIO 2.4 (<3.6); SODIUM 135 mmol/L (135-145); TOTAL PROTEIN 7.2 g/dL (6.4-8.9); TRIGLYCERIDES 71 mg/dL (48-352); VLDL CHOLESTEROL 14 mg/dL
[2024-01-20 12:52] LABS: THYROID STIMULATING HORMONE 3.32 uIU/mL (0.34-5.60)
== END 2024-01-20 12:07 | disposition home or self-care (01) ==
LOC: LAB 12:06
PROVIDERS: ATTEND Nurse Practitioner
DX: R53.83 Other fatigue (principal); Z13.220 Encounter for screening for lipoid disorders; Z12.5 Encounter for screening for malignant neoplasm of prostate; R37 Sexual dysfunction, unspecified; E29.1 Testicular hypofunction; F41.9 Anxiety disorder, unspecified
CPT/HCPCS: 36415; 80053; 80061; 83721; 84153; 84403; 84443; 85025